=== PATIENT | male | born 1960 | race Caucasian/White ===

== ENCOUNTER 2021-03-21 14:01 | Inpatient (IN) | payer MEDICARE ==
[~2021-03-21] VITALS: Ht 185.4 cm; Wt 178.7 kg
[2021-03-21 15:06] VITALS: BP 117/69
[2021-03-21] MEDS ORDERED: DEXTROSE 50% 25 GM / 50ML DISP.SYRIN. IV PRN (15:45)
[2021-03-21] MEDS ORDERED: IPRATRPIUM/ALBUTEROL 0.5/2.5MG 3 ML NEBU. NEB SCH (16:00)
[2021-03-21] MEDS ORDERED: guaiFENesin/CODEINE 100mg/10mg 5 ML LIQUID PO PRN (16:30)
--- NOTE | 2021-03-21 16:53 | HP ---
DATE OF SERVICE: 03/21/2021 ADMIT DATE: 03/21/2021 CHIEF COMPLAINT: Respiratory failure, COVID-19. HISTORY OF PRESENT ILLNESS: The patient is a pleasant 60-year-old male who presented to [facility] with respiratory failure. He was placed on COVID-19 protocol. Their doctor called me, I have accepted the patient as a transfer. We are starting him on remdesivir. He is already on broad-spectrum antibiotics. I am also going to consult Pulmonary Medicine and put him on the rest of the COVID protocol. PAST MEDICAL HISTORY: Overweight, hypertension, hyperlipidemia, edema, diabetes. ALLERGIES: None. FAMILY HISTORY: Diabetes. SOCIAL HISTORY: He is on disability. He used to work at [employer]. MEDICATIONS: Reviewed. Please refer to the MRAD. REVIEW OF SYSTEMS: GENERAL: No history of weight change, weakness or fevers. SKIN: No bruising, hair changes or rashes. EYES: No blurred, double or loss of vision. NOSE AND THROAT: No history of nosebleeds, hoarseness or sore throat. HEART: No history of palpitations, chest pain or shortness of breath on exertion. PULMONARY: He complains of shortness of breath. GASTROINTESTINAL: Denies changes in appetite, nausea, vomiting, diarrhea or constipation. GENITOURINARY: No history of frequency, urgency, hesitancy or nocturia. NEUROLOGIC: Denies history of numbness, tingling, tremor or weakness. PSYCHIATRIC: No history of panic, anxiety or depression. ENDOCRINE: No history of heat or cold intolerance, polyuria or polydipsia. EXTREMITIES: Denies muscle weakness, joint pain, pain on walking or stiffness. PHYSICAL EXAMINATION: VITALS: Within normal limits and are stable. GENERAL: He is overweight. HEENT: Normal cephalic atraumatic, external auditory canals are patent EYES: Extraocular muscles are intact, pupils are equally round and reactive to light and accommodation MUSCULOSKELETAL: Well developed, well nourished, good range of motion ENDOCRINE: No thyromegaly was palpated LYMPHATICS: No cervical chain or axillary nodes were noted HEMATOPOIETIC: No bruising NECK: Supple, no JVD, no thyromegaly was noted. PULMONARY: He has bibasilar crackles. HEART: RRR, S1, S2 present. Peripheral pulses intact, no obvious murmurs were noted. ABDOMEN: Soft, nontender. Positive bowel sounds no organomegaly, normal bowel sounds. EXTREMITIES: Without any cyanosis, clubbing, or edema. Pedal pulses intact, Homans sign is negative. NEUROLOGIC: Normal speech, normal tone. A and O x 3, moves all extremities, no obvious focal deficits. PSYCHIATRIC: He is a little anxious. SKIN: No ulcerations or rashes, good skin turgor, no jaundice. VASCULAR: Good capillary refill, neurovascular bundle appears to be intact. LABORATORY DATA: Pending. He does have a COVID test that is back, that is positive. IMAGING STUDIES: Pending. ASSESSMENT AND PLAN: COVID-19, respiratory failure. The patient has been admitted. I have consulted Dr. Fenton. I called the pharmacy. We started remdesivir. We will continue the Rocephin and azithromycin he was on. We will continue his steroids. I added in vitamins and minerals, oxygen, codeine cough syrup and aspirin and Lovenox. Trend his labs. Home meds. Deep venous thrombosis prophylaxis. Full code. Prognosis is guarded. ANDRES LINDSEY: Osvaldo TID: [id number]
[2021-03-21] MEDS ORDERED: REMDESIVIR LOAD in IV NORMAL SALINE 250ML TV IV ONE (17:00)
[2021-03-21] MEDS ORDERED: AZITHROMYCIN 500 MG in IV NORMAL SALINE 250ML 250 ML IV SCH (17:00)
[2021-03-21] MEDS ORDERED: AZITHROMYCIN 250 MG in IV NORMAL SALINE 250ML 250 ML IV SCH (17:00)
[2021-03-21] MEDS: cefTRIAXone IV Push 1 GM VIAL. IVP SCH (17:27)
[2021-03-21] MEDS: metFORMIN 500 MG TABLET PO SCH (17:46)
[2021-03-21] MEDS: ENOXAPARIN 40 MG/0.4 ML SYRINGE. SQ SCH (17:46)
[2021-03-21] MEDS: INSULIN LISPRO 300 UNITS/3 ML VIAL. SQ SCH (17:47)
[2021-03-21 19:54] VITALS: BP 135/81
[2021-03-21] MEDS: LACTOBACILLUS RHAMNOSUS GG 1 CAPSULE. PO SCH (21:02)
[2021-03-21] MEDS: ATORVASTATIN CALCIUM 20 MG TABLET PO SCH (21:02)
[2021-03-21] MEDS: IPRATROPIUM/ALBUTEROL 20/100mcg/INH INHALER. INH SCH (21:02)
[2021-03-21] MEDS: methylPREDNISolone SOD SUCC PF 125 MG/2 ML VIAL. IV SCH (21:04)
[2021-03-21 23:06] VITALS: BP 123/70
--- NOTE | 2021-03-22 02:35 | NUR ---
Pt's sats in low- to mid-80's on 15L NC; pt sitting in bed in no apparent distress. Placed 15L NRB in addition to 15L NC, sats up to 88%. Spoke with RT Dorcas - no new recommendations at this time. Will continue to monitor.
[2021-03-22 03:01] VITALS: BP 142/68
[2021-03-22 04:53] LABS: BASO # 0.1 x10^3/uL (0.0-0.2); BASO % 1 % (0-3); EOS % 0 % (0-3); HEMATOCRIT 37.2 % (39.0-53.0); HEMOGLOBIN 12.1 g/dL (13.0-17.5); LYMPH # 0.3 x10^3/uL (1.0-4.8); LYMPH % 2 % (24-48); MEAN CORPUSCULAR HEMOGLOBIN 31 pg (25-35); MEAN CORPUSCULAR HGB CONC 32 g/dL (31-37); MEAN CORPUSCULAR VOLUME 96 fL (79-100); MONO # 0.2 x10^3/uL (0.0-1.1); MONO % 2 % (0-9); NEUT # 10.5 x10^3/uL (1.8-7.7); NEUT % 95 % (31-73); RED BLOOD COUNT 3.87 x10^6/uL (4.30-5.70); RED CELL DISTRIBUTION WIDTH 14.7 % (11.5-14.5); WHITE BLOOD COUNT 11.1 x10^3/uL (4.0-11.0)
[2021-03-22 04:56] LABS: CALCIUM 8.6 mg/dL (8.5-10.1); CREATININE 1.2 mg/dL (0.7-1.3); GFR 61.3; POTASSIUM 4.7 mmol/L (3.5-5.1)
[2021-03-22] MEDS: methylPREDNISolone SOD SUCC PF 125 MG/2 ML VIAL. IV SCH ×3 (05:44→22:23)
[2021-03-22 06:28] LABS: % LYMPHS 2 % (24-48); % MONOS 3 % (0-10); % SEGS 95 % (35-66)
[2021-03-22 06:38] LABS: PLATELET CLUMP PRESENT
[2021-03-22 07:00] VITALS: BP 135/81
[2021-03-22] MEDS ORDERED: AZITHRMYCN 500MG IVPB FOR OMNI 250 ML IV SCH (09:00)
[2021-03-22] MEDS: IPRATROPIUM/ALBUTEROL 20/100mcg/INH INHALER. INH SCH ×4 (09:02→20:32)
[2021-03-22] MEDS: ASPIRIN CHEWABLE 81 MG TABLET. PO SCH (09:02)
--- NOTE | 2021-03-22 09:03 | CONS ---
DATE OF CONSULTATION: 03/22/2021 PULMONARY CONSULTATION ATTENDING PHYSICIAN: Dr. Patel. REASON FOR CONSULTATION: COVID-19 pneumonia, severe hypoxia. HISTORY OF PRESENT ILLNESS: The patient is a 60-year-old morbidly obese male with a BMI of 52. The patient has 30 years of tobacco use before quitting. He presented to the hospital with complaint of shortness of breath. He was recently diagnosed with COVID-19. The patient normally uses oxygen 3 liters at home. Now requiring 100% FiO2 via nonrebreather mask and plus 15 liters of supplemental oxygen via nasal cannula. He denies any chest pain. He does have some cough. No nausea, vomiting, no diarrhea, no dysuria. He is morbidly obese. He has lower extremity lymphedema. His chest x-ray was reviewed from [facility]. It shows extensive bilateral infiltrates. PAST MEDICAL HISTORY: History of morbid obesity with a BMI of 52. Hypertension, hyperlipidemia, lymphedema of lower extremity and diabetes. PAST SURGICAL HISTORY: No recent surgery. ALLERGIES: None. FAMILY HISTORY: Diabetes. SOCIAL HISTORY: He is on disability. He used to work at [employer]. Smoked for 30 years before quitting. MEDICATIONS: Reviewed as listed in the MRAD including initiation of remdesivir and IV Solu-Medrol. REVIEW OF SYSTEMS: A 12-point review of system obtained. Pertinent positives discussed in my present illness, otherwise noncontributory. All systems that were negative were reviewed as well. PHYSICAL EXAMINATION: His vital signs were reviewed. Pulse ox is 91% on 100% FiO2 and 15 liters nasal cannula, afebrile. Visual exam done due to COVID-19. He is sitting in a recline position. No obvious respiratory distress. He is markedly obese. BMI 52. He has lower extremity lymphedema. LABORATORY DATA: Reviewed. White cell count 11.1, hemoglobin 12.1 and platelets are 89. COVID is positive. BUN 38, creatinine 1.2. C-reactive protein is 41.8. IMPRESSION: 1. Acute hypoxic respiratory failure secondary to COVID-19 viral pneumonia leading to acute respiratory distress syndrome. 2. Abnormal chest x-ray with extensive bilateral infiltrates consistent with viral pneumonia. 3. Thrombocytopenia, likely caused by viral pneumonia. 4. C-reactive protein 41. Does not meet the criteria for Actemra. 5. Morbid obesity and underlying suspected chronic obstructive pulmonary disease highly contributing to the severity of hypoxia. 6. Lymphedema, component of cor -pulmonale . RECOMMENDATIONS: 1. We will initiate Vapotherm at 100% FiO2 and 40 liters flow. 2. I have discussed advanced directives with the patient due to the severity of hypoxia. He wants to be aggressive and wants full code. 3. Continue to finish remdesivir. 4. IV steroids. 5. Lovenox for DVT prophylaxis. 6. Nebulizer treatment. 7. Empiric antibiotics. 8. The patient does not meet the criteria for Actemra. CRP is low. 9. Continue diuresis. 10. Discussed with RN. Case discussed with the patient. We will follow along with you. 11. Diuresis. Total critical care time 35 minutes. We may have to transfer him to ICU if hypoxia worsens. KULDIP DR: Ren TID: [id number] [place]
[2021-03-22] MEDS: metFORMIN 500 MG TABLET PO SCH ×2 (09:04→18:28)
[2021-03-22] MEDS: LACTOBACILLUS RHAMNOSUS GG 1 CAPSULE. PO SCH ×2 (09:04→20:31)
[2021-03-22] MEDS: MULTIVITAMIN with MINERAL TABLET. PO SCH (09:05)
[2021-03-22] MEDS: FUROSEMIDE 40 MG TABLET. PO SCH (09:05)
[2021-03-22] MEDS: INSULIN LISPRO 300 UNITS/3 ML VIAL. SQ SCH ×4 (09:13→18:31)
[2021-03-22] MEDS ORDERED: STERILE WATER for RESP 2,000 ML BAG. INH PRN (09:30)
[2021-03-22 10:09] LABS: PLATELET COUNT 89 x10^3/uL (140-400)
[2021-03-22 10:13] LABS: PLT ESTIMATE DECREASED (ADEQUATE)
[2021-03-22 12:00] VITALS: BP 127/66
[2021-03-22 15:00] VITALS: BP 127/81
[2021-03-22] MEDS: cefTRIAXone IV Push 1 GM VIAL. IVP SCH (18:27)
[2021-03-22] MEDS: REMDESIVIR 100mg in NORMAL SALINE 250ML X 4 DAYS IV SCH (18:27)
[2021-03-22] MEDS: ENOXAPARIN 40 MG/0.4 ML SYRINGE. SQ SCH (18:29)
--- NOTE | 2021-03-22 18:58 | PDOC ---
[employer] PROGRESS NOTE Date of Service DOS: DATE: 03/22/21 TIME: 18:54 Chief Complaint Chief Complaint Shortness of breath History of Present Illness History of Present Illness The patient is a pleasant 60-year-old male who presented to [facility] with respiratory failure. He was placed on COVID-19 protocol. Their doctor called me, I have accepted the patient as a transfer. We are starting him on remdesivir. He is already on broad-spectrum antibiotics. I am also going to consult Pulmonary Medicine and put him on the rest of the COVID protocol. 03/22 Patient evaluated examined at bedside. Continue current Covid treatment. Pulmonary following. Antibiotics remdesivir fever oxygen as needed. Continue current plan. Plan of care discussed with bedside RN. Vitals/I&O Vitals/I&O: Vital Signs Date Time Temp Pulse Resp B/P (MAP) Pulse Ox O2 Delivery O2 Flow Rate FiO2 03/22/21 16:13 88 Vapotherm 40.0 03/22/21 15:00 97.3 104 16 127/81 (96) 97.3 I & O 03/21/21 03/21/21 03/22/21 15:00 23:00 07:00 Intake Total 1660 ml 300 ml Output Total 1100 ml 475 ml Balance 560 ml -175 ml Physical Exam General: Alert, Oriented X3, Cooperative Heart: Regular rate, Normal S1, Normal S2 Lungs: Other (Coarse breath sounds throughout decreased air entry) Abdomen: Normal bowel sounds, Soft, No tenderness Extremities: No edema, Normal pulses Skin: No significant lesion Labs Labs: Laboratory Tests Test 03/21/21 20:40 03/22/21 04:00 03/22/21 07:25 03/22/21 11:25 Glucose (Fingerstick) 219 mg/dL (70-99) 249 mg/dL (70-99) 294 mg/dL (70-99) White Blood Count 11.1 x10^3/uL (4.0-11.0) Red Blood Count 3.87 x10^6/uL (4.30-5.70) Hemoglobin 12.1 g/dL (13.0-17.5) Hematocrit 37.2 % (39.0-53.0) Mean Corpuscular Volume 96 fL (79-100) Mean Corpuscular Hemoglobin 31 pg (25-35) Mean Corpuscular Hemoglobin Concent 32 g/dL (31-37) Red Cell Distribution Width 14.7 % (11.5-14.5) Platelet Count 89 x10^3/uL (140-400) Neutrophils (%) (Auto) 95 % (31-73) Lymphocytes (%) (Auto) 2 % (24-48) Monocytes (%) (Auto) 2 % (0-9) Eosinophils (%) (Auto) 0 % (0-3) Basophils (%) (Auto) 1 % (0-3) Neutrophils # (Auto) 10.5 x10^3/uL (1.8-7.7) Lymphocytes # (Auto) 0.3 x10^3/uL (1.0-4.8) Monocytes # (Auto) 0.2 x10^3/uL (0.0-1.1) Eosinophils # (Auto) 0.0 x10^3/uL (0.0-0.7) Basophils # (Auto) 0.1 x10^3/uL (0.0-0.2) Segmented Neutrophils % 95 % (35-66) Lymphocytes % 2 % (24-48) Monocytes % 3 % (0-10) Platelet Estimate Decreased (ADEQUATE) Platelet Clumps, EDTA Present Sodium Level 134 mmol/L (136-145) Potassium Level 4.7 mmol/L (3.5-5.1) Chloride Level 99 mmol/L (98-107) Carbon Dioxide Level 23 mmol/L (21-32) Anion Gap 12 (6-14) Blood Urea Nitrogen 38 mg/dL (8-26) Creatinine 1.2 mg/dL (0.7-1.3) Estimated GFR (Cockcroft-Gault) 61.3 Glucose Level 245 mg/dL (70-99) Calcium Level 8.6 mg/dL (8.5-10.1) C-Reactive Protein, Quantitative 41.8 mg/L (0-3.3) Test 03/22/21 17:17 Glucose (Fingerstick) 237 mg/dL (70-99) Assessment and Plan Assessmemt and Plan Acute hypoxic respiratory failure secondary to COVID-19 pneumonia COVID-19, respiratory failure. The patient has been admitted. I have consulted Dr. Fenton. I called the pharmacy. We started remdesivir. We will continue the Rocephin and azithromycin he was on. We will continue his steroids. I added in vitamins and minerals, oxygen, codeine cough syrup and aspirin and Lovenox. Trend his labs. Home meds. Deep venous thrombosis prophylaxis. Full code. Prognosis is guarded. Comment Review of Relevant I have reviewed the following items traci (where applicable) has been applied. Medications: Current Medications Medications (Trade) Dose Ordered Sig/Holly Route PRN Reason Start Time Stop Time Status Last Admin Dose Admin Remdesivir 100 mg/ Sodium Chloride 230 ml @ 460 mls/hr Q24H IV 03/22/21 17:00 03/25/21 17:29 03/22/21 18:27 Atorvastatin Calcium (Lipitor) 20 mg HS PO 03/21/21 21:00 03/21/21 21:02 Furosemide (Lasix) 40 mg DAILY PO 03/22/21 09:00 03/22/21 09:05 Lactobacillus Rhamnosus (Culturelle) 1 cap BID PO 03/21/21 21:00 03/22/21 09:04 Diltiazem HCl (Cardizem 24hr Cd) 300 mg DAILY PO 03/22/21 09:00 03/22/21 09:04 Methylprednisolone Sodium Succinate (SOLU-Medrol 125MG VIAL) 60 mg Q8HRS IV 03/21/21 22:00 03/22/21 13:18 Multivitamins (Thera M Plus) 1 tab DAILY PO 03/22/21 09:00 03/22/21 09:05 Aspirin (Aspirin Chewable) 81 mg DAILYWBKFT PO 03/22/21 08:00 03/22/21 09:02 Albuterol/ Ipratropium (Combivent Respimat 20-100 Mcg) 1 puff RTQID INH 03/21/21 20:00 03/22/21 16:29 Insulin Human Lispro (HumaLOG) 7 units TIDAC SQ 03/22/21 16:30 03/22/21 18:29 Justifications for Admission Other Justification LARY GILLIS MD Mar 22, 2021 18:58
[2021-03-22 19:59] VITALS: BP 108/58
[2021-03-22] MEDS: AZITHROMYCIN 500 MG in IV NORMAL SALINE 250ML 250 ML IV SCH (20:31)
[2021-03-22] MEDS: ATORVASTATIN CALCIUM 20 MG TABLET PO SCH (20:31)
[2021-03-22] MEDS: INSULIN GLARGINE SYRINGE. SQ SCH (22:22)
[2021-03-22 23:08] VITALS: BP 125/74
[2021-03-23 02:08] VITALS: BP 131/79
[2021-03-23] MEDS: methylPREDNISolone SOD SUCC PF 125 MG/2 ML VIAL. IV SCH ×3 (05:44→19:58)
[2021-03-23 07:00] VITALS: BP 145/67
[2021-03-23 08:17] LABS: BASO % 0 % (0-3); EOS % 0 % (0-3); HEMATOCRIT 39.5 % (39.0-53.0); HEMOGLOBIN 12.6 g/dL (13.0-17.5); LYMPH # 0.3 x10^3/uL (1.0-4.8); LYMPH % 3 % (24-48); MEAN CORPUSCULAR HEMOGLOBIN 31 pg (25-35); MEAN CORPUSCULAR HGB CONC 32 g/dL (31-37); MEAN CORPUSCULAR VOLUME 96 fL (79-100); MONO # 0.2 x10^3/uL (0.0-1.1); MONO % 3 % (0-9); NEUT # 8.2 x10^3/uL (1.8-7.7); NEUT % 94 % (31-73); PLATELET COUNT 98 x10^3/uL (140-400); RED CELL DISTRIBUTION WIDTH 15.1 % (11.5-14.5); WHITE BLOOD COUNT 8.8 x10^3/uL (4.0-11.0)
[2021-03-23 08:24] LABS: CALCIUM 9.2 mg/dL (8.5-10.1); CREATININE 1.1 mg/dL (0.7-1.3); GFR 67.8; POTASSIUM 5.1 mmol/L (3.5-5.1)
[2021-03-23] MEDS: IPRATROPIUM/ALBUTEROL 20/100mcg/INH INHALER. INH SCH ×4 (09:06→20:22)
[2021-03-23] MEDS: metFORMIN 500 MG TABLET PO SCH ×2 (09:06→17:00)
[2021-03-23] MEDS: LACTOBACILLUS RHAMNOSUS GG 1 CAPSULE. PO SCH ×2 (09:06→19:58)
[2021-03-23] MEDS: MULTIVITAMIN with MINERAL TABLET. PO SCH (09:06)
[2021-03-23] MEDS: ASPIRIN CHEWABLE 81 MG TABLET. PO SCH (09:06)
[2021-03-23] MEDS: FUROSEMIDE 40 MG TABLET. PO SCH (09:07)
[2021-03-23] MEDS: INSULIN LISPRO 300 UNITS/3 ML VIAL. SQ SCH ×6 (09:08→17:00)
--- NOTE | 2021-03-23 10:34 | PDOC ---
PULMONARY PROGRESS NOTES DATE: 03/23/21 TIME: 10:32 Subjective Patient remains on 100% FiO2 via Vapotherm. He is comfortable. Vitals Vital Signs Date Time Temp Pulse Resp B/P (MAP) Pulse Ox O2 Delivery O2 Flow Rate FiO2 03/23/21 09:53 90 Vapotherm 40.0 03/23/21 09:07 86 145/67 03/23/21 07:30 22 03/23/21 07:00 96.7 96.7 Comments Visual exam done due to COVID-19 viral pneumonia. No use of accessory muscles. No paradoxical breathing. Lower extremities with lymphedema. Lungs: Other (Coarse breath sounds throughout decreased air entry) Labs Laboratory Tests Test 03/21/21 11:25 03/21/21 17:27 03/21/21 20:40 03/22/21 04:00 SARS-CoV-2 Antigen (Rapid) Positive (NEGATIVE) Glucose (Fingerstick) 223 mg/dL (70-99) 219 mg/dL (70-99) White Blood Count 11.1 x10^3/uL (4.0-11.0) Red Blood Count 3.87 x10^6/uL (4.30-5.70) Hemoglobin 12.1 g/dL (13.0-17.5) Hematocrit 37.2 % (39.0-53.0) Mean Corpuscular Volume 96 fL (79-100) Mean Corpuscular Hemoglobin 31 pg (25-35) Mean Corpuscular Hemoglobin Concent 32 g/dL (31-37) Red Cell Distribution Width 14.7 % (11.5-14.5) Platelet Count 89 x10^3/uL (140-400) Neutrophils (%) (Auto) 95 % (31-73) Lymphocytes (%) (Auto) 2 % (24-48) Monocytes (%) (Auto) 2 % (0-9) Eosinophils (%) (Auto) 0 % (0-3) Basophils (%) (Auto) 1 % (0-3) Neutrophils # (Auto) 10.5 x10^3/uL (1.8-7.7) Lymphocytes # (Auto) 0.3 x10^3/uL (1.0-4.8) Monocytes # (Auto) 0.2 x10^3/uL (0.0-1.1) Eosinophils # (Auto) 0.0 x10^3/uL (0.0-0.7) Basophils # (Auto) 0.1 x10^3/uL (0.0-0.2) Segmented Neutrophils % 95 % (35-66) Lymphocytes % 2 % (24-48) Monocytes % 3 % (0-10) Platelet Estimate Decreased (ADEQUATE) Platelet Clumps, EDTA Present Sodium Level 134 mmol/L (136-145) Potassium Level 4.7 mmol/L (3.5-5.1) Chloride Level 99 mmol/L (98-107) Carbon Dioxide Level 23 mmol/L (21-32) Anion Gap 12 (6-14) Blood Urea Nitrogen 38 mg/dL (8-26) Creatinine 1.2 mg/dL (0.7-1.3) Estimated GFR (Cockcroft-Gault) 61.3 Glucose Level 245 mg/dL (70-99) Calcium Level 8.6 mg/dL (8.5-10.1) C-Reactive Protein, Quantitative 41.8 mg/L (0-3.3) Test 03/22/21 07:25 03/22/21 11:25 03/22/21 17:17 03/22/21 20:16 Glucose (Fingerstick) 249 mg/dL (70-99) 294 mg/dL (70-99) 237 mg/dL (70-99) 221 mg/dL (70-99) Test 03/23/21 07:40 03/23/21 08:00 White Blood Count 8.8 x10^3/uL (4.0-11.0) Red Blood Count 4.10 x10^6/uL (4.30-5.70) Hemoglobin 12.6 g/dL (13.0-17.5) Hematocrit 39.5 % (39.0-53.0) Mean Corpuscular Volume 96 fL (79-100) Mean Corpuscular Hemoglobin 31 pg (25-35) Mean Corpuscular Hemoglobin Concent 32 g/dL (31-37) Red Cell Distribution Width 15.1 % (11.5-14.5) Platelet Count 98 x10^3/uL (140-400) Neutrophils (%) (Auto) 94 % (31-73) Lymphocytes (%) (Auto) 3 % (24-48) Monocytes (%) (Auto) 3 % (0-9) Eosinophils (%) (Auto) 0 % (0-3) Basophils (%) (Auto) 0 % (0-3) Neutrophils # (Auto) 8.2 x10^3/uL (1.8-7.7) Lymphocytes # (Auto) 0.3 x10^3/uL (1.0-4.8) Monocytes # (Auto) 0.2 x10^3/uL (0.0-1.1) Eosinophils # (Auto) 0.0 x10^3/uL (0.0-0.7) Basophils # (Auto) 0.0 x10^3/uL (0.0-0.2) Sodium Level 132 mmol/L (136-145) Potassium Level 5.1 mmol/L (3.5-5.1) Chloride Level 99 mmol/L (98-107) Carbon Dioxide Level 25 mmol/L (21-32) Anion Gap 8 (6-14) Blood Urea Nitrogen 42 mg/dL (8-26) Creatinine 1.1 mg/dL (0.7-1.3) Estimated GFR (Cockcroft-Gault) 67.8 Glucose Level 217 mg/dL (70-99) Calcium Level 9.2 mg/dL (8.5-10.1) Glucose (Fingerstick) 203 mg/dL (70-99) Laboratory Tests Test 03/22/21 11:25 03/22/21 17:17 03/22/21 20:16 03/23/21 07:40 Glucose (Fingerstick) 294 mg/dL (70-99) 237 mg/dL (70-99) 221 mg/dL (70-99) White Blood Count 8.8 x10^3/uL (4.0-11.0) Red Blood Count 4.10 x10^6/uL (4.30-5.70) Hemoglobin 12.6 g/dL (13.0-17.5) Hematocrit 39.5 % (39.0-53.0) Mean Corpuscular Volume 96 fL (79-100) Mean Corpuscular Hemoglobin 31 pg (25-35) Mean Corpuscular Hemoglobin Concent 32 g/dL (31-37) Red Cell Distribution Width 15.1 % (11.5-14.5) Platelet Count 98 x10^3/uL (140-400) Neutrophils (%) (Auto) 94 % (31-73) Lymphocytes (%) (Auto) 3 % (24-48) Monocytes (%) (Auto) 3 % (0-9) Eosinophils (%) (Auto) 0 % (0-3) Basophils (%) (Auto) 0 % (0-3) Neutrophils # (Auto) 8.2 x10^3/uL (1.8-7.7) Lymphocytes # (Auto) 0.3 x10^3/uL (1.0-4.8) Monocytes # (Auto) 0.2 x10^3/uL (0.0-1.1) Eosinophils # (Auto) 0.0 x10^3/uL (0.0-0.7) Basophils # (Auto) 0.0 x10^3/uL (0.0-0.2) Sodium Level 132 mmol/L (136-145) Potassium Level 5.1 mmol/L (3.5-5.1) Chloride Level 99 mmol/L (98-107) Carbon Dioxide Level 25 mmol/L (21-32) Anion Gap 8 (6-14) Blood Urea Nitrogen 42 mg/dL (8-26) Creatinine 1.1 mg/dL (0.7-1.3) Estimated GFR (Cockcroft-Gault) 67.8 Glucose Level 217 mg/dL (70-99) Calcium Level 9.2 mg/dL (8.5-10.1) Test 03/23/21 08:00 Glucose (Fingerstick) 203 mg/dL (70-99) Impression . 1. Acute hypoxic respiratory failure secondary to COVID-19 viral pneumonia leading to acute respiratory distress syndrome. 2. Abnormal chest x-ray with extensive bilateral infiltrates consistent with viral pneumonia. 3. Thrombocytopenia, likely caused by viral pneumonia. 4. C-reactive protein 41. Does not meet the criteria for Actemra. 5. Morbid obesity and underlying suspected chronic obstructive pulmonary disease highly contributing to the severity of hypoxia. 6. Lymphedema, component of cor -pulmonale . Plan . 1. Vapotherm at 100% FiO2 and 40 liters flow. 2. I have discussed advanced directives with the patient due to the severity of hypoxia. He wants to be aggressive and wants full code. 3. Continue to finish remdesivir. 4. IV steroids. 5. Lovenox for DVT prophylaxis. 6. Nebulizer treatment. 7. Empiric antibiotics. 8. The patient does not meet the criteria for Actemra. CRP is low. 9. Continue diuresis. 10. Discussed with RN. Case discussed with the patient. We will follow along with you. AMINATA BARRERA MD Mar 23, 2021 10:34
[2021-03-23 11:00] VITALS: BP 133/73
[2021-03-23 15:00] VITALS: BP 119/81
[2021-03-23] MEDS: ENOXAPARIN 40 MG/0.4 ML SYRINGE. SQ SCH (17:00)
[2021-03-23] MEDS: cefTRIAXone IV Push 1 GM VIAL. IVP SCH (17:00)
[2021-03-23] MEDS: REMDESIVIR 100mg in NORMAL SALINE 250ML X 4 DAYS IV SCH (17:00)
[2021-03-23 19:28] VITALS: BP 134/77
[2021-03-23] MEDS: ATORVASTATIN CALCIUM 20 MG TABLET PO SCH (19:58)
[2021-03-23] MEDS: AZITHROMYCIN 500 MG in IV NORMAL SALINE 250ML 250 ML IV SCH (20:03)
[2021-03-23] MEDS: INSULIN GLARGINE SYRINGE. SQ SCH (20:23)
[2021-03-23 23:09] VITALS: BP 131/77
[2021-03-24 02:43] VITALS: BP 150/72
[2021-03-24 03:19] LABS: BASO % 0 % (0-3); EOS % 0 % (0-3); HEMOGLOBIN 12.9 g/dL (13.0-17.5); LYMPH # 0.3 x10^3/uL (1.0-4.8); LYMPH % 4 % (24-48); MEAN CORPUSCULAR HEMOGLOBIN 31 pg (25-35); MEAN CORPUSCULAR HGB CONC 32 g/dL (31-37); MEAN CORPUSCULAR VOLUME 97 fL (79-100); MONO # 0.2 x10^3/uL (0.0-1.1); MONO % 3 % (0-9); NEUT # 6.7 x10^3/uL (1.8-7.7); NEUT % 93 % (31-73); PLATELET COUNT 132 x10^3/uL (140-400); RED BLOOD COUNT 4.13 x10^6/uL (4.30-5.70); RED CELL DISTRIBUTION WIDTH 14.8 % (11.5-14.5); WHITE BLOOD COUNT 7.2 x10^3/uL (4.0-11.0)
[2021-03-24 04:03] LABS: CREATININE 1.2 mg/dL (0.7-1.3); GFR 61.3; POTASSIUM 5.2 mmol/L (3.5-5.1)
[2021-03-24] MEDS: methylPREDNISolone SOD SUCC PF 125 MG/2 ML VIAL. IV SCH ×3 (05:46→21:21)
[2021-03-24 06:30] VITALS: BP 141/89
[2021-03-24] MEDS: ASPIRIN CHEWABLE 81 MG TABLET. PO SCH (08:40)
[2021-03-24] MEDS: MULTIVITAMIN with MINERAL TABLET. PO SCH (08:41)
[2021-03-24] MEDS: metFORMIN 500 MG TABLET PO SCH ×2 (08:41→16:23)
[2021-03-24] MEDS: LACTOBACILLUS RHAMNOSUS GG 1 CAPSULE. PO SCH ×2 (08:41→21:19)
[2021-03-24] MEDS: FUROSEMIDE 40 MG TABLET. PO SCH (08:41)
[2021-03-24] MEDS: IPRATROPIUM/ALBUTEROL 20/100mcg/INH INHALER. INH SCH ×4 (08:42→21:18)
[2021-03-24] MEDS: INSULIN LISPRO 300 UNITS/3 ML VIAL. SQ SCH ×6 (08:42→16:24)
--- NOTE | 2021-03-24 08:48 | PDOC ---
PULMONARY PROGRESS NOTES DATE: 03/24/21 TIME: 08:47 Subjective Patient remains on 100% FiO2 via Vapotherm. He is comfortable. Vitals Vital Signs Date Time Temp Pulse Resp B/P (MAP) Pulse Ox O2 Delivery O2 Flow Rate FiO2 03/24/21 08:41 82 141/89 03/24/21 08:26 89 Vapotherm 40.0 03/24/21 06:30 97.3 18 97.3 Comments Visual exam done due to COVID-19 viral pneumonia. No use of accessory muscles. No paradoxical breathing. Lower extremities with lymphedema. Labs Laboratory Tests Test 03/22/21 11:25 03/22/21 17:17 03/22/21 20:16 03/23/21 07:40 Glucose (Fingerstick) 294 mg/dL (70-99) 237 mg/dL (70-99) 221 mg/dL (70-99) White Blood Count 8.8 x10^3/uL (4.0-11.0) Red Blood Count 4.10 x10^6/uL (4.30-5.70) Hemoglobin 12.6 g/dL (13.0-17.5) Hematocrit 39.5 % (39.0-53.0) Mean Corpuscular Volume 96 fL (79-100) Mean Corpuscular Hemoglobin 31 pg (25-35) Mean Corpuscular Hemoglobin Concent 32 g/dL (31-37) Red Cell Distribution Width 15.1 % (11.5-14.5) Platelet Count 98 x10^3/uL (140-400) Neutrophils (%) (Auto) 94 % (31-73) Lymphocytes (%) (Auto) 3 % (24-48) Monocytes (%) (Auto) 3 % (0-9) Eosinophils (%) (Auto) 0 % (0-3) Basophils (%) (Auto) 0 % (0-3) Neutrophils # (Auto) 8.2 x10^3/uL (1.8-7.7) Lymphocytes # (Auto) 0.3 x10^3/uL (1.0-4.8) Monocytes # (Auto) 0.2 x10^3/uL (0.0-1.1) Eosinophils # (Auto) 0.0 x10^3/uL (0.0-0.7) Basophils # (Auto) 0.0 x10^3/uL (0.0-0.2) Sodium Level 132 mmol/L (136-145) Potassium Level 5.1 mmol/L (3.5-5.1) Chloride Level 99 mmol/L (98-107) Carbon Dioxide Level 25 mmol/L (21-32) Anion Gap 8 (6-14) Blood Urea Nitrogen 42 mg/dL (8-26) Creatinine 1.1 mg/dL (0.7-1.3) Estimated GFR (Cockcroft-Gault) 67.8 Glucose Level 217 mg/dL (70-99) Calcium Level 9.2 mg/dL (8.5-10.1) Test 03/23/21 08:00 03/23/21 11:30 03/23/21 17:12 03/23/21 20:06 Glucose (Fingerstick) 203 mg/dL (70-99) 277 mg/dL (70-99) 230 mg/dL (70-99) 238 mg/dL (70-99) Test 03/24/21 02:55 03/24/21 08:07 White Blood Count 7.2 x10^3/uL (4.0-11.0) Red Blood Count 4.13 x10^6/uL (4.30-5.70) Hemoglobin 12.9 g/dL (13.0-17.5) Hematocrit 40.0 % (39.0-53.0) Mean Corpuscular Volume 97 fL (79-100) Mean Corpuscular Hemoglobin 31 pg (25-35) Mean Corpuscular Hemoglobin Concent 32 g/dL (31-37) Red Cell Distribution Width 14.8 % (11.5-14.5) Platelet Count 132 x10^3/uL (140-400) Neutrophils (%) (Auto) 93 % (31-73) Lymphocytes (%) (Auto) 4 % (24-48) Monocytes (%) (Auto) 3 % (0-9) Eosinophils (%) (Auto) 0 % (0-3) Basophils (%) (Auto) 0 % (0-3) Neutrophils # (Auto) 6.7 x10^3/uL (1.8-7.7) Lymphocytes # (Auto) 0.3 x10^3/uL (1.0-4.8) Monocytes # (Auto) 0.2 x10^3/uL (0.0-1.1) Eosinophils # (Auto) 0.0 x10^3/uL (0.0-0.7) Basophils # (Auto) 0.0 x10^3/uL (0.0-0.2) Sodium Level 131 mmol/L (136-145) Potassium Level 5.2 mmol/L (3.5-5.1) Chloride Level 98 mmol/L (98-107) Carbon Dioxide Level 21 mmol/L (21-32) Anion Gap 12 (6-14) Blood Urea Nitrogen 44 mg/dL (8-26) Creatinine 1.2 mg/dL (0.7-1.3) Estimated GFR (Cockcroft-Gault) 61.3 Glucose Level 291 mg/dL (70-99) Calcium Level 9.0 mg/dL (8.5-10.1) Glucose (Fingerstick) 237 mg/dL (70-99) Laboratory Tests Test 03/23/21 11:30 03/23/21 17:12 03/23/21 20:06 03/24/21 02:55 Glucose (Fingerstick) 277 mg/dL (70-99) 230 mg/dL (70-99) 238 mg/dL (70-99) White Blood Count 7.2 x10^3/uL (4.0-11.0) Red Blood Count 4.13 x10^6/uL (4.30-5.70) Hemoglobin 12.9 g/dL (13.0-17.5) Hematocrit 40.0 % (39.0-53.0) Mean Corpuscular Volume 97 fL (79-100) Mean Corpuscular Hemoglobin 31 pg (25-35) Mean Corpuscular Hemoglobin Concent 32 g/dL (31-37) Red Cell Distribution Width 14.8 % (11.5-14.5) Platelet Count 132 x10^3/uL (140-400) Neutrophils (%) (Auto) 93 % (31-73) Lymphocytes (%) (Auto) 4 % (24-48) Monocytes (%) (Auto) 3 % (0-9) Eosinophils (%) (Auto) 0 % (0-3) Basophils (%) (Auto) 0 % (0-3) Neutrophils # (Auto) 6.7 x10^3/uL (1.8-7.7) Lymphocytes # (Auto) 0.3 x10^3/uL (1.0-4.8) Monocytes # (Auto) 0.2 x10^3/uL (0.0-1.1) Eosinophils # (Auto) 0.0 x10^3/uL (0.0-0.7) Basophils # (Auto) 0.0 x10^3/uL (0.0-0.2) Sodium Level 131 mmol/L (136-145) Potassium Level 5.2 mmol/L (3.5-5.1) Chloride Level 98 mmol/L (98-107) Carbon Dioxide Level 21 mmol/L (21-32) Anion Gap 12 (6-14) Blood Urea Nitrogen 44 mg/dL (8-26) Creatinine 1.2 mg/dL (0.7-1.3) Estimated GFR (Cockcroft-Gault) 61.3 Glucose Level 291 mg/dL (70-99) Calcium Level 9.0 mg/dL (8.5-10.1) Test 03/24/21 08:07 Glucose (Fingerstick) 237 mg/dL (70-99) Impression . 1. Acute hypoxic respiratory failure secondary to COVID-19 viral pneumonia leading to acute respiratory distress syndrome. 2. Abnormal chest x-ray with extensive bilateral infiltrates consistent with viral pneumonia. 3. Thrombocytopenia, likely caused by viral pneumonia. 4. C-reactive protein 41. Does not meet the criteria for Actemra. 5. Morbid obesity and underlying suspected chronic obstructive pulmonary disease highly contributing to the severity of hypoxia. 6. Lymphedema, component of cor -pulmonale . Plan . 1. Vapotherm at 100% FiO2 and 40 liters flow. 2. I have discussed advanced directives with the patient due to the severity of hypoxia. He wants to be aggressive and wants full code. 3. Continue to finish remdesivir. 4. IV steroids. 5. Lovenox for DVT prophylaxis. 6. Nebulizer treatment. 7. Empiric antibiotics. 8. The patient does not meet the criteria for Actemra. CRP is low. 9. Continue diuresis. 10. Discussed with SOHA. AMINATA BARRERA MD Mar 24, 2021 08:48
--- NOTE | 2021-03-24 09:30 | PDOC ---
[employer] PROGRESS NOTE Date of Service DOS: DATE: 03/24/21 TIME: : Chief Complaint Chief Complaint A/P Acute hypoxic respiratory failure secondary to COVID-19 pneumonia COVID-19, respiratory failure. The patient has been admitted. I have consulted Dr. Fenton. I called the pharmacy. We started remdesivir. We will continue the Rocephin and azithromycin he was on. We will continue his steroids. I added in vitamins and minerals, oxygen, codeine cough syrup and aspirin and Lovenox. Trend his labs. Home meds. Deep venous thrombosis prophylaxis. Full code. Prognosis is guarded. History of Present Illness History of Present Illness The patient is a pleasant 60-year-old male who presented to [facility] with respiratory failure. He was placed on COVID-19 protocol. Their doctor called me, I have accepted the patient as a transfer. We are starting him on remdesivir. He is already on broad-spectrum antibiotics. I am also going to consult Pulmonary Medicine and put him on the rest of the COVID protocol. 03/22 Patient evaluated examined at bedside. Continue current Covid treatment. Pulmonary following. Antibiotics remdesivir fever oxygen as needed. Continue current plan. Plan of care discussed with bedside RN. 03/23 Late entry for March 23. Patient evaluated examined at bedside. Still on Covid treatment. Pulmonary following. Wean O2 as tolerated. Plan of care discussed with bedside RN. Vitals/I&O Vitals/I&O: Vital Signs Date Time Temp Pulse Resp B/P (MAP) Pulse Ox O2 Delivery O2 Flow Rate FiO2 03/24/21 08:41 82 141/89 03/24/21 08:26 89 Vapotherm 40.0 03/24/21 06:30 97.3 18 97.3 I & O 03/23/21 03/23/21 03/24/21 15:00 23:00 07:00 Intake Total 460 ml 640 ml 400 ml Output Total 450 ml 550 ml 750 ml Balance 10 ml 90 ml -350 ml Physical Exam General: Alert, Oriented X3, Cooperative Heart: Regular rate, Normal S1, Normal S2 Abdomen: Normal bowel sounds, Soft, No tenderness Extremities: No edema, Normal pulses Skin: No significant lesion Labs Labs: Laboratory Tests Test 03/23/21 11:30 03/23/21 17:12 03/23/21 20:06 03/24/21 02:55 Glucose (Fingerstick) 277 mg/dL (70-99) 230 mg/dL (70-99) 238 mg/dL (70-99) White Blood Count 7.2 x10^3/uL (4.0-11.0) Red Blood Count 4.13 x10^6/uL (4.30-5.70) Hemoglobin 12.9 g/dL (13.0-17.5) Hematocrit 40.0 % (39.0-53.0) Mean Corpuscular Volume 97 fL (79-100) Mean Corpuscular Hemoglobin 31 pg (25-35) Mean Corpuscular Hemoglobin Concent 32 g/dL (31-37) Red Cell Distribution Width 14.8 % (11.5-14.5) Platelet Count 132 x10^3/uL (140-400) Neutrophils (%) (Auto) 93 % (31-73) Lymphocytes (%) (Auto) 4 % (24-48) Monocytes (%) (Auto) 3 % (0-9) Eosinophils (%) (Auto) 0 % (0-3) Basophils (%) (Auto) 0 % (0-3) Neutrophils # (Auto) 6.7 x10^3/uL (1.8-7.7) Lymphocytes # (Auto) 0.3 x10^3/uL (1.0-4.8) Monocytes # (Auto) 0.2 x10^3/uL (0.0-1.1) Eosinophils # (Auto) 0.0 x10^3/uL (0.0-0.7) Basophils # (Auto) 0.0 x10^3/uL (0.0-0.2) Sodium Level 131 mmol/L (136-145) Potassium Level 5.2 mmol/L (3.5-5.1) Chloride Level 98 mmol/L (98-107) Carbon Dioxide Level 21 mmol/L (21-32) Anion Gap 12 (6-14) Blood Urea Nitrogen 44 mg/dL (8-26) Creatinine 1.2 mg/dL (0.7-1.3) Estimated GFR (Cockcroft-Gault) 61.3 Glucose Level 291 mg/dL (70-99) Calcium Level 9.0 mg/dL (8.5-10.1) Test 03/24/21 08:07 Glucose (Fingerstick) 237 mg/dL (70-99) Comment Review of Relevant I have reviewed the following items traci (where applicable) has been applied. Justifications for Admission Other Justification LARY GILLIS MD Mar 24, 2021 09:30
[2021-03-24 11:04] VITALS: BP 121/70
--- NOTE | 2021-03-24 11:53 | PDOC ---
[employer] PROGRESS NOTE Date of Service DOS: DATE: 03/24/21 TIME: 11:52 Chief Complaint Chief Complaint A/P Acute hypoxic respiratory failure secondary to COVID-19 pneumonia COVID-19, respiratory failure. The patient has been admitted. I have consulted Dr. Fenton. I called the pharmacy. We started remdesivir. We will continue the Rocephin and azithromycin he was on. We will continue his steroids. I added in vitamins and minerals, oxygen, codeine cough syrup and aspirin and Lovenox. Trend his labs. Home meds. Deep venous thrombosis prophylaxis. Full code. Prognosis is guarded. History of Present Illness History of Present Illness The patient is a pleasant 60-year-old male who presented to [facility] with respiratory failure. He was placed on COVID-19 protocol. Their doctor called me, I have accepted the patient as a transfer. We are starting him on remdesivir. He is already on broad-spectrum antibiotics. I am also going to consult Pulmonary Medicine and put him on the rest of the COVID protocol. 03/22 Patient evaluated examined at bedside. Continue current Covid treatment. Pulmonary following. Antibiotics remdesivir fever oxygen as needed. Continue current plan. Plan of care discussed with bedside RN. 03/23 Late entry for March 23. Patient evaluated examined at bedside. Still on Covid treatment. Pulmonary following. Wean O2 as tolerated. Plan of care discussed with bedside RN. 03/24 Patient evaluated and examined at bedside. Still remains on Vapotherm no success with weaning. Appreciate pulmonary discussing advance care planning with patient. Continue current Covid treatment. Not a tocilizumab candidate. Plan of care discussed with bedside RN. Vitals/I&O Vitals/I&O: Vital Signs Date Time Temp Pulse Resp B/P (MAP) Pulse Ox O2 Delivery O2 Flow Rate FiO2 03/24/21 11:33 89 Vapotherm 40.0 03/24/21 11:04 98.6 91 24 121/70 (87) 98.6 I & O 03/23/21 03/23/21 03/24/21 15:00 23:00 07:00 Intake Total 460 ml 640 ml 400 ml Output Total 450 ml 550 ml 750 ml Balance 10 ml 90 ml -350 ml Physical Exam General: Alert, Oriented X3, Cooperative Heart: Regular rate, Normal S1, Normal S2 Abdomen: Normal bowel sounds, Soft, No tenderness Extremities: No edema, Normal pulses Skin: No significant lesion Labs Labs: Laboratory Tests Test 03/23/21 17:12 03/23/21 20:06 03/24/21 02:55 03/24/21 08:07 Glucose (Fingerstick) 230 mg/dL (70-99) 238 mg/dL (70-99) 237 mg/dL (70-99) White Blood Count 7.2 x10^3/uL (4.0-11.0) Red Blood Count 4.13 x10^6/uL (4.30-5.70) Hemoglobin 12.9 g/dL (13.0-17.5) Hematocrit 40.0 % (39.0-53.0) Mean Corpuscular Volume 97 fL (79-100) Mean Corpuscular Hemoglobin 31 pg (25-35) Mean Corpuscular Hemoglobin Concent 32 g/dL (31-37) Red Cell Distribution Width 14.8 % (11.5-14.5) Platelet Count 132 x10^3/uL (140-400) Neutrophils (%) (Auto) 93 % (31-73) Lymphocytes (%) (Auto) 4 % (24-48) Monocytes (%) (Auto) 3 % (0-9) Eosinophils (%) (Auto) 0 % (0-3) Basophils (%) (Auto) 0 % (0-3) Neutrophils # (Auto) 6.7 x10^3/uL (1.8-7.7) Lymphocytes # (Auto) 0.3 x10^3/uL (1.0-4.8) Monocytes # (Auto) 0.2 x10^3/uL (0.0-1.1) Eosinophils # (Auto) 0.0 x10^3/uL (0.0-0.7) Basophils # (Auto) 0.0 x10^3/uL (0.0-0.2) Sodium Level 131 mmol/L (136-145) Potassium Level 5.2 mmol/L (3.5-5.1) Chloride Level 98 mmol/L (98-107) Carbon Dioxide Level 21 mmol/L (21-32) Anion Gap 12 (6-14) Blood Urea Nitrogen 44 mg/dL (8-26) Creatinine 1.2 mg/dL (0.7-1.3) Estimated GFR (Cockcroft-Gault) 61.3 Glucose Level 291 mg/dL (70-99) Calcium Level 9.0 mg/dL (8.5-10.1) Test 03/24/21 11:33 Glucose (Fingerstick) 319 mg/dL (70-99) Comment Review of Relevant I have reviewed the following items traci (where applicable) has been applied. Justifications for Admission Other Justification LARY GILLIS MD Mar 24, 2021 11:53
[2021-03-24 15:10] VITALS: BP 125/72
[2021-03-24] MEDS: cefTRIAXone IV Push 1 GM VIAL. IVP SCH (16:22)
[2021-03-24] MEDS: ENOXAPARIN 40 MG/0.4 ML SYRINGE. SQ SCH (16:22)
[2021-03-24] MEDS: REMDESIVIR 100mg in NORMAL SALINE 250ML X 4 DAYS IV SCH (16:23)
[2021-03-24 19:15] VITALS: BP 116/73
[2021-03-24] MEDS: ATORVASTATIN CALCIUM 20 MG TABLET PO SCH (21:19)
[2021-03-24] MEDS: AZITHROMYCIN 500 MG in IV NORMAL SALINE 250ML 250 ML IV SCH (21:19)
[2021-03-24] MEDS: INSULIN GLARGINE SYRINGE. SQ SCH (21:20)
[2021-03-24 22:38] VITALS: BP 106/63
[2021-03-25 03:08] VITALS: BP 116/61
[2021-03-25] MEDS: methylPREDNISolone SOD SUCC PF 125 MG/2 ML VIAL. IV SCH ×2 (06:03→21:30)
[2021-03-25 06:06] LABS: BASO % 0 % (0-3); EOS % 0 % (0-3); HEMATOCRIT 39.6 % (39.0-53.0); HEMOGLOBIN 12.8 g/dL (13.0-17.5); LYMPH # 0.3 x10^3/uL (1.0-4.8); LYMPH % 4 % (24-48); MEAN CORPUSCULAR HEMOGLOBIN 31 pg (25-35); MEAN CORPUSCULAR HGB CONC 32 g/dL (31-37); MEAN CORPUSCULAR VOLUME 95 fL (79-100); MONO # 0.2 x10^3/uL (0.0-1.1); MONO % 3 % (0-9); NEUT # 6.6 x10^3/uL (1.8-7.7); NEUT % 94 % (31-73); PLATELET COUNT 100 x10^3/uL (140-400); RED BLOOD COUNT 4.17 x10^6/uL (4.30-5.70); RED CELL DISTRIBUTION WIDTH 14.6 % (11.5-14.5); WHITE BLOOD COUNT 7.1 x10^3/uL (4.0-11.0)
[2021-03-25 06:20] LABS: CALCIUM 9.1 mg/dL (8.5-10.1); CREATININE 1.1 mg/dL (0.7-1.3); GFR 67.8
[2021-03-25 06:29] LABS: POTASSIUM 5.7 mmol/L (3.5-5.1)
[2021-03-25 07:00] VITALS: BP 139/102
[2021-03-25] MEDS: IPRATROPIUM/ALBUTEROL 20/100mcg/INH INHALER. INH SCH ×3 (08:00→16:00)
[2021-03-25] MEDS: INSULIN LISPRO 300 UNITS/3 ML VIAL. SQ SCH ×6 (08:43→16:48)
[2021-03-25] MEDS: LACTOBACILLUS RHAMNOSUS GG 1 CAPSULE. PO SCH ×2 (08:44→21:30)
[2021-03-25] MEDS: ASPIRIN CHEWABLE 81 MG TABLET. PO SCH (08:44)
[2021-03-25] MEDS: metFORMIN 500 MG TABLET PO SCH ×2 (08:44→16:51)
[2021-03-25] MEDS: MULTIVITAMIN with MINERAL TABLET. PO SCH (08:44)
[2021-03-25] MEDS: FUROSEMIDE 40 MG TABLET. PO SCH (08:45)
--- NOTE | 2021-03-25 10:09 | PDOC ---
PULMONARY PROGRESS NOTES DATE: 03/25/21 TIME: 10:08 Subjective Patient remains on 100% FiO2 via Vapotherm. He is comfortable. Vitals Vital Signs Date Time Temp Pulse Resp B/P (MAP) Pulse Ox O2 Delivery O2 Flow Rate FiO2 03/25/21 08:45 90 139/102 03/25/21 07:19 98 Vapotherm 40.0 03/25/21 07:00 98.2 22 98.2 Comments Visual exam done due to COVID-19 viral pneumonia. No use of accessory muscles. No paradoxical breathing. Lower extremities with lymphedema. Labs Laboratory Tests Test 03/23/21 11:30 03/23/21 17:12 03/23/21 20:06 03/24/21 02:55 Glucose (Fingerstick) 277 mg/dL (70-99) 230 mg/dL (70-99) 238 mg/dL (70-99) White Blood Count 7.2 x10^3/uL (4.0-11.0) Red Blood Count 4.13 x10^6/uL (4.30-5.70) Hemoglobin 12.9 g/dL (13.0-17.5) Hematocrit 40.0 % (39.0-53.0) Mean Corpuscular Volume 97 fL (79-100) Mean Corpuscular Hemoglobin 31 pg (25-35) Mean Corpuscular Hemoglobin Concent 32 g/dL (31-37) Red Cell Distribution Width 14.8 % (11.5-14.5) Platelet Count 132 x10^3/uL (140-400) Neutrophils (%) (Auto) 93 % (31-73) Lymphocytes (%) (Auto) 4 % (24-48) Monocytes (%) (Auto) 3 % (0-9) Eosinophils (%) (Auto) 0 % (0-3) Basophils (%) (Auto) 0 % (0-3) Neutrophils # (Auto) 6.7 x10^3/uL (1.8-7.7) Lymphocytes # (Auto) 0.3 x10^3/uL (1.0-4.8) Monocytes # (Auto) 0.2 x10^3/uL (0.0-1.1) Eosinophils # (Auto) 0.0 x10^3/uL (0.0-0.7) Basophils # (Auto) 0.0 x10^3/uL (0.0-0.2) Sodium Level 131 mmol/L (136-145) Potassium Level 5.2 mmol/L (3.5-5.1) Chloride Level 98 mmol/L (98-107) Carbon Dioxide Level 21 mmol/L (21-32) Anion Gap 12 (6-14) Blood Urea Nitrogen 44 mg/dL (8-26) Creatinine 1.2 mg/dL (0.7-1.3) Estimated GFR (Cockcroft-Gault) 61.3 Glucose Level 291 mg/dL (70-99) Calcium Level 9.0 mg/dL (8.5-10.1) Test 03/24/21 08:07 03/24/21 11:33 03/24/21 16:04 03/24/21 20:34 Glucose (Fingerstick) 237 mg/dL (70-99) 319 mg/dL (70-99) 247 mg/dL (70-99) 173 mg/dL (70-99) Test 03/25/21 04:40 03/25/21 08:20 White Blood Count 7.1 x10^3/uL (4.0-11.0) Red Blood Count 4.17 x10^6/uL (4.30-5.70) Hemoglobin 12.8 g/dL (13.0-17.5) Hematocrit 39.6 % (39.0-53.0) Mean Corpuscular Volume 95 fL (79-100) Mean Corpuscular Hemoglobin 31 pg (25-35) Mean Corpuscular Hemoglobin Concent 32 g/dL (31-37) Red Cell Distribution Width 14.6 % (11.5-14.5) Platelet Count 100 x10^3/uL (140-400) Neutrophils (%) (Auto) 94 % (31-73) Lymphocytes (%) (Auto) 4 % (24-48) Monocytes (%) (Auto) 3 % (0-9) Eosinophils (%) (Auto) 0 % (0-3) Basophils (%) (Auto) 0 % (0-3) Neutrophils # (Auto) 6.6 x10^3/uL (1.8-7.7) Lymphocytes # (Auto) 0.3 x10^3/uL (1.0-4.8) Monocytes # (Auto) 0.2 x10^3/uL (0.0-1.1) Eosinophils # (Auto) 0.0 x10^3/uL (0.0-0.7) Basophils # (Auto) 0.0 x10^3/uL (0.0-0.2) Sodium Level 133 mmol/L (136-145) Potassium Level 5.7 mmol/L (3.5-5.1) Chloride Level 99 mmol/L (98-107) Carbon Dioxide Level 23 mmol/L (21-32) Anion Gap 11 (6-14) Blood Urea Nitrogen 45 mg/dL (8-26) Creatinine 1.1 mg/dL (0.7-1.3) Estimated GFR (Cockcroft-Gault) 67.8 Glucose Level 233 mg/dL (70-99) Calcium Level 9.1 mg/dL (8.5-10.1) Glucose (Fingerstick) 228 mg/dL (70-99) Laboratory Tests Test 03/24/21 11:33 03/24/21 16:04 03/24/21 20:34 03/25/21 04:40 Glucose (Fingerstick) 319 mg/dL (70-99) 247 mg/dL (70-99) 173 mg/dL (70-99) White Blood Count 7.1 x10^3/uL (4.0-11.0) Red Blood Count 4.17 x10^6/uL (4.30-5.70) Hemoglobin 12.8 g/dL (13.0-17.5) Hematocrit 39.6 % (39.0-53.0) Mean Corpuscular Volume 95 fL (79-100) Mean Corpuscular Hemoglobin 31 pg (25-35) Mean Corpuscular Hemoglobin Concent 32 g/dL (31-37) Red Cell Distribution Width 14.6 % (11.5-14.5) Platelet Count 100 x10^3/uL (140-400) Neutrophils (%) (Auto) 94 % (31-73) Lymphocytes (%) (Auto) 4 % (24-48) Monocytes (%) (Auto) 3 % (0-9) Eosinophils (%) (Auto) 0 % (0-3) Basophils (%) (Auto) 0 % (0-3) Neutrophils # (Auto) 6.6 x10^3/uL (1.8-7.7) Lymphocytes # (Auto) 0.3 x10^3/uL (1.0-4.8) Monocytes # (Auto) 0.2 x10^3/uL (0.0-1.1) Eosinophils # (Auto) 0.0 x10^3/uL (0.0-0.7) Basophils # (Auto) 0.0 x10^3/uL (0.0-0.2) Sodium Level 133 mmol/L (136-145) Potassium Level 5.7 mmol/L (3.5-5.1) Chloride Level 99 mmol/L (98-107) Carbon Dioxide Level 23 mmol/L (21-32) Anion Gap 11 (6-14) Blood Urea Nitrogen 45 mg/dL (8-26) Creatinine 1.1 mg/dL (0.7-1.3) Estimated GFR (Cockcroft-Gault) 67.8 Glucose Level 233 mg/dL (70-99) Calcium Level 9.1 mg/dL (8.5-10.1) Test 03/25/21 08:20 Glucose (Fingerstick) 228 mg/dL (70-99) Impression . 1. Acute hypoxic respiratory failure secondary to COVID-19 viral pneumonia leading to acute respiratory distress syndrome. 2. Abnormal chest x-ray with extensive bilateral infiltrates consistent with viral pneumonia. 3. Thrombocytopenia, likely caused by viral pneumonia. 4. C-reactive protein 41. Does not meet the criteria for Actemra. 5. Morbid obesity and underlying suspected chronic obstructive pulmonary disease highly contributing to the severity of hypoxia. 6. Lymphedema, component of cor -pulmonale . Plan . 1. Vapotherm at 100% FiO2 and 40 liters flow. 2. I have discussed advanced directives with the patient due to the severity of hypoxia. He wants to be aggressive and wants full code. 3. Continue to finish remdesivir. 4. IV steroids with gradual taper. 5. Lovenox for DVT prophylaxis. 6. Nebulizer treatment. 7. Empiric antibiotics. 8. The patient does not meet the criteria for Actemra. CRP is low. 9. Continue diuresis. 10. Discussed with RN. AMINATA BARRERA MD Mar 25, 2021 10:09
[2021-03-25 11:00] VITALS: BP 130/73
--- NOTE | 2021-03-25 11:22 | PDOC ---
[employer] PROGRESS NOTE Date of Service DOS: DATE: 03/25/21 TIME: : Chief Complaint Chief Complaint A/P Acute hypoxic respiratory failure secondary to COVID-19 pneumonia COVID-19, respiratory failure. The patient has been admitted. I have consulted Dr. Fenton. I called the pharmacy. We started remdesivir. We will continue the Rocephin and azithromycin he was on. We will continue his steroids. I added in vitamins and minerals, oxygen, codeine cough syrup and aspirin and Lovenox. Trend his labs. Home meds. Deep venous thrombosis prophylaxis. Full code. Prognosis is guarded. History of Present Illness History of Present Illness The patient is a pleasant 60-year-old male who presented to [facility] with respiratory failure. He was placed on COVID-19 protocol. Their doctor called me, I have accepted the patient as a transfer. We are starting him on remdesivir. He is already on broad-spectrum antibiotics. I am also going to consult Pulmonary Medicine and put him on the rest of the COVID protocol. 03/22 Patient evaluated examined at bedside. Continue current Covid treatment. Pulmonary following. Antibiotics remdesivir fever oxygen as needed. Continue current plan. Plan of care discussed with bedside RN. 03/23 Late entry for March 23. Patient evaluated examined at bedside. Still on Covid treatment. Pulmonary following. Wean O2 as tolerated. Plan of care discussed with bedside RN. 03/24 Patient evaluated and examined at bedside. Still remains on Vapotherm no success with weaning. Appreciate pulmonary discussing advance care planning with patient. Continue current Covid treatment. Not a tocilizumab candidate. Plan of care discussed with bedside RN. 03/25 Patient evaluated and examined at bedside. Remains on Vapotherm unsuccessful to any weaning. Hyperkalemia a bit worse today will treat. Continue COVID treatments. Patient insistent on remaining a full code plan of care discussed with bedside RN. Vitals/I&O Vitals/I&O: Vital Signs Date Time Temp Pulse Resp B/P (MAP) Pulse Ox O2 Delivery O2 Flow Rate FiO2 03/25/21 11:19 98 Vapotherm 40.0 03/25/21 08:45 90 139/102 03/25/21 07:00 98.2 22 98.2 I & O 03/24/21 03/24/21 03/25/21 15:00 23:00 07:00 Intake Total 2530 ml 300 ml Output Total 850 ml 901 ml Balance 1680 ml -601 ml Physical Exam General: Alert, Oriented X3, Cooperative Heart: Regular rate, Normal S1, Normal S2 Lungs: Other (decreased air entry throughout) Abdomen: Normal bowel sounds, Soft, No tenderness Extremities: No edema, Normal pulses Skin: No significant lesion Labs Labs: Laboratory Tests Test 03/24/21 11:33 03/24/21 16:04 03/24/21 20:34 03/25/21 04:40 Glucose (Fingerstick) 319 mg/dL (70-99) 247 mg/dL (70-99) 173 mg/dL (70-99) White Blood Count 7.1 x10^3/uL (4.0-11.0) Red Blood Count 4.17 x10^6/uL (4.30-5.70) Hemoglobin 12.8 g/dL (13.0-17.5) Hematocrit 39.6 % (39.0-53.0) Mean Corpuscular Volume 95 fL (79-100) Mean Corpuscular Hemoglobin 31 pg (25-35) Mean Corpuscular Hemoglobin Concent 32 g/dL (31-37) Red Cell Distribution Width 14.6 % (11.5-14.5) Platelet Count 100 x10^3/uL (140-400) Neutrophils (%) (Auto) 94 % (31-73) Lymphocytes (%) (Auto) 4 % (24-48) Monocytes (%) (Auto) 3 % (0-9) Eosinophils (%) (Auto) 0 % (0-3) Basophils (%) (Auto) 0 % (0-3) Neutrophils # (Auto) 6.6 x10^3/uL (1.8-7.7) Lymphocytes # (Auto) 0.3 x10^3/uL (1.0-4.8) Monocytes # (Auto) 0.2 x10^3/uL (0.0-1.1) Eosinophils # (Auto) 0.0 x10^3/uL (0.0-0.7) Basophils # (Auto) 0.0 x10^3/uL (0.0-0.2) Sodium Level 133 mmol/L (136-145) Potassium Level 5.7 mmol/L (3.5-5.1) Chloride Level 99 mmol/L (98-107) Carbon Dioxide Level 23 mmol/L (21-32) Anion Gap 11 (6-14) Blood Urea Nitrogen 45 mg/dL (8-26) Creatinine 1.1 mg/dL (0.7-1.3) Estimated GFR (Cockcroft-Gault) 67.8 Glucose Level 233 mg/dL (70-99) Calcium Level 9.1 mg/dL (8.5-10.1) Test 03/25/21 08:20 Glucose (Fingerstick) 228 mg/dL (70-99) Comment Review of Relevant I have reviewed the following items traci (where applicable) has been applied. Justifications for Admission Other Justification LARY GILLIS MD Mar 25, 2021 11:22
[2021-03-25] MEDS ORDERED: SODIUM POLYSTYRENE SULFON/SORB 15 GM/60 ML ORAL.SUSP. PO ONE (11:45)
[2021-03-25] MEDS ORDERED: CALCIUM GLUCONATE 1,000 MG/10 ML VIAL. IVP ONE ×2 (11:45)
[2021-03-25] MEDS ORDERED: INSULIN REGULAR 100 UNIT/ML 3ML VIAL. IV ONE (11:45)
[2021-03-25] MEDS ORDERED: DEXTROSE 50% 25 GM / 50ML DISP.SYRIN. IV ONE (11:45)
[2021-03-25] MEDS ORDERED: FUROSEMIDE 40 MG/4 ML VIAL. IVP ONE (12:00)
--- NOTE | 2021-03-25 13:39 | NUR ---
SS following for discharge planning. SS reviewed pt chart and discussed with pt RN. Pt is from home and is currently on Vapotherm at 40 liters and 100%. COVID19 positive. Pt on IV Azithromycin, IV Remdesivir, IV Solu-Medrol, and IV Rocephin. Not stable. SS will continue to follow for discharge planning.
[2021-03-25 15:00] VITALS: BP 123/58
[2021-03-25] MEDS: cefTRIAXone IV Push 1 GM VIAL. IVP SCH (16:49)
[2021-03-25] MEDS: REMDESIVIR 100mg in NORMAL SALINE 250ML X 4 DAYS IV SCH (16:53)
[2021-03-25 19:35] VITALS: BP 122/72
[2021-03-25] MEDS: AZITHROMYCIN 500 MG in IV NORMAL SALINE 250ML 250 ML IV SCH (21:29)
[2021-03-25] MEDS: ATORVASTATIN CALCIUM 20 MG TABLET PO SCH (21:30)
[2021-03-25] MEDS: INSULIN GLARGINE SYRINGE. SQ SCH (21:39)
[2021-03-25] MEDS: STERILE WATER for RESP 1,000 ML BAG. INH PRN (22:00)
[2021-03-25 23:00] VITALS: BP 128/77
[2021-03-26 03:45] VITALS: BP 125/81
[2021-03-26 07:00] VITALS: BP 136/87
[2021-03-26] MEDS: IPRATROPIUM/ALBUTEROL 20/100mcg/INH INHALER. INH SCH ×5 (08:00→21:24)
[2021-03-26 08:10] LABS: BASO % 0 % (0-3); EOS % 0 % (0-3); HEMOGLOBIN 13.3 g/dL (13.0-17.5); LYMPH # 0.2 x10^3/uL (1.0-4.8); LYMPH % 3 % (24-48); MEAN CORPUSCULAR HEMOGLOBIN 31 pg (25-35); MEAN CORPUSCULAR HGB CONC 32 g/dL (31-37); MEAN CORPUSCULAR VOLUME 96 fL (79-100); MONO # 0.3 x10^3/uL (0.0-1.1); MONO % 3 % (0-9); NEUT # 7.5 x10^3/uL (1.8-7.7); NEUT % 94 % (31-73); PLATELET COUNT 143 x10^3/uL (140-400); RED BLOOD COUNT 4.28 x10^6/uL (4.30-5.70); RED CELL DISTRIBUTION WIDTH 14.8 % (11.5-14.5)
[2021-03-26 08:33] LABS: CALCIUM 8.7 mg/dL (8.5-10.1); CREATININE 1.2 mg/dL (0.7-1.3); GFR 61.3; POTASSIUM 5.1 mmol/L (3.5-5.1)
--- NOTE | 2021-03-26 08:37 | PDOC ---
PULMONARY PROGRESS NOTES DATE: 03/26/21 TIME: 08:37 Subjective Patient feels better, no chest pain no pressure Vitals Vital Signs Date Time Temp Pulse Resp B/P (MAP) Pulse Ox O2 Delivery O2 Flow Rate FiO2 03/26/21 04:56 96 Vapotherm 30.0 03/26/21 03:45 97.4 92 24 125/81 (96) 97.4 Comments Visual exam done due to COVID-19 viral pneumonia. No use of accessory muscles. No paradoxical breathing. Lower extremities with lymphedema. Lungs: Other (decreased air entry throughout) Labs Laboratory Tests Test 03/24/21 11:33 03/24/21 16:04 03/24/21 20:34 03/25/21 04:40 Glucose (Fingerstick) 319 mg/dL (70-99) 247 mg/dL (70-99) 173 mg/dL (70-99) White Blood Count 7.1 x10^3/uL (4.0-11.0) Red Blood Count 4.17 x10^6/uL (4.30-5.70) Hemoglobin 12.8 g/dL (13.0-17.5) Hematocrit 39.6 % (39.0-53.0) Mean Corpuscular Volume 95 fL (79-100) Mean Corpuscular Hemoglobin 31 pg (25-35) Mean Corpuscular Hemoglobin Concent 32 g/dL (31-37) Red Cell Distribution Width 14.6 % (11.5-14.5) Platelet Count 100 x10^3/uL (140-400) Neutrophils (%) (Auto) 94 % (31-73) Lymphocytes (%) (Auto) 4 % (24-48) Monocytes (%) (Auto) 3 % (0-9) Eosinophils (%) (Auto) 0 % (0-3) Basophils (%) (Auto) 0 % (0-3) Neutrophils # (Auto) 6.6 x10^3/uL (1.8-7.7) Lymphocytes # (Auto) 0.3 x10^3/uL (1.0-4.8) Monocytes # (Auto) 0.2 x10^3/uL (0.0-1.1) Eosinophils # (Auto) 0.0 x10^3/uL (0.0-0.7) Basophils # (Auto) 0.0 x10^3/uL (0.0-0.2) Sodium Level 133 mmol/L (136-145) Potassium Level 5.7 mmol/L (3.5-5.1) Chloride Level 99 mmol/L (98-107) Carbon Dioxide Level 23 mmol/L (21-32) Anion Gap 11 (6-14) Blood Urea Nitrogen 45 mg/dL (8-26) Creatinine 1.1 mg/dL (0.7-1.3) Estimated GFR (Cockcroft-Gault) 67.8 Glucose Level 233 mg/dL (70-99) Calcium Level 9.1 mg/dL (8.5-10.1) Test 03/25/21 08:20 03/25/21 11:20 03/25/21 16:32 03/25/21 21:04 Glucose (Fingerstick) 228 mg/dL (70-99) 273 mg/dL (70-99) 219 mg/dL (70-99) 190 mg/dL (70-99) Test 03/26/21 07:50 03/26/21 08:23 White Blood Count 8.0 x10^3/uL (4.0-11.0) Red Blood Count 4.28 x10^6/uL (4.30-5.70) Hemoglobin 13.3 g/dL (13.0-17.5) Hematocrit 41.0 % (39.0-53.0) Mean Corpuscular Volume 96 fL (79-100) Mean Corpuscular Hemoglobin 31 pg (25-35) Mean Corpuscular Hemoglobin Concent 32 g/dL (31-37) Red Cell Distribution Width 14.8 % (11.5-14.5) Platelet Count 143 x10^3/uL (140-400) Neutrophils (%) (Auto) 94 % (31-73) Lymphocytes (%) (Auto) 3 % (24-48) Monocytes (%) (Auto) 3 % (0-9) Eosinophils (%) (Auto) 0 % (0-3) Basophils (%) (Auto) 0 % (0-3) Neutrophils # (Auto) 7.5 x10^3/uL (1.8-7.7) Lymphocytes # (Auto) 0.2 x10^3/uL (1.0-4.8) Monocytes # (Auto) 0.3 x10^3/uL (0.0-1.1) Eosinophils # (Auto) 0.0 x10^3/uL (0.0-0.7) Basophils # (Auto) 0.0 x10^3/uL (0.0-0.2) Sodium Level 132 mmol/L (136-145) Potassium Level 5.1 mmol/L (3.5-5.1) Chloride Level 98 mmol/L (98-107) Carbon Dioxide Level 21 mmol/L (21-32) Anion Gap 13 (6-14) Blood Urea Nitrogen 50 mg/dL (8-26) Creatinine 1.2 mg/dL (0.7-1.3) Estimated GFR (Cockcroft-Gault) 61.3 Glucose Level 213 mg/dL (70-99) Calcium Level 8.7 mg/dL (8.5-10.1) Glucose (Fingerstick) 202 mg/dL (70-99) Laboratory Tests Test 03/25/21 11:20 03/25/21 16:32 03/25/21 21:04 03/26/21 07:50 Glucose (Fingerstick) 273 mg/dL (70-99) 219 mg/dL (70-99) 190 mg/dL (70-99) White Blood Count 8.0 x10^3/uL (4.0-11.0) Red Blood Count 4.28 x10^6/uL (4.30-5.70) Hemoglobin 13.3 g/dL (13.0-17.5) Hematocrit 41.0 % (39.0-53.0) Mean Corpuscular Volume 96 fL (79-100) Mean Corpuscular Hemoglobin 31 pg (25-35) Mean Corpuscular Hemoglobin Concent 32 g/dL (31-37) Red Cell Distribution Width 14.8 % (11.5-14.5) Platelet Count 143 x10^3/uL (140-400) Neutrophils (%) (Auto) 94 % (31-73) Lymphocytes (%) (Auto) 3 % (24-48) Monocytes (%) (Auto) 3 % (0-9) Eosinophils (%) (Auto) 0 % (0-3) Basophils (%) (Auto) 0 % (0-3) Neutrophils # (Auto) 7.5 x10^3/uL (1.8-7.7) Lymphocytes # (Auto) 0.2 x10^3/uL (1.0-4.8) Monocytes # (Auto) 0.3 x10^3/uL (0.0-1.1) Eosinophils # (Auto) 0.0 x10^3/uL (0.0-0.7) Basophils # (Auto) 0.0 x10^3/uL (0.0-0.2) Sodium Level 132 mmol/L (136-145) Potassium Level 5.1 mmol/L (3.5-5.1) Chloride Level 98 mmol/L (98-107) Carbon Dioxide Level 21 mmol/L (21-32) Anion Gap 13 (6-14) Blood Urea Nitrogen 50 mg/dL (8-26) Creatinine 1.2 mg/dL (0.7-1.3) Estimated GFR (Cockcroft-Gault) 61.3 Glucose Level 213 mg/dL (70-99) Calcium Level 8.7 mg/dL (8.5-10.1) Test 03/26/21 08:23 Glucose (Fingerstick) 202 mg/dL (70-99) Impression . 1. Acute hypoxic respiratory failure secondary to COVID-19 viral pneumonia leading to acute respiratory distress syndrome. 2. Abnormal chest x-ray with extensive bilateral infiltrates consistent with viral pneumonia. 3. Thrombocytopenia, likely caused by viral pneumonia. 4. C-reactive protein 41. Does not meet the criteria for Actemra. 5. Morbid obesity and underlying suspected chronic obstructive pulmonary disease highly contributing to the severity of hypoxia. 6. Lymphedema, component of cor -pulmonale . Plan . Updated 03/26 Continue current support Remdesivir Steroids DVT prophylaxis 1. Vapotherm at 100% FiO2 and 40 liters flow. 2. I have discussed advanced directives with the patient due to the severity of hypoxia. He wants to be aggressive and wants full code. 3. Continue to finish remdesivir. 4. IV steroids with gradual taper. 5. Lovenox for DVT prophylaxis. 6. Nebulizer treatment. 7. Empiric antibiotics. 8. The patient does not meet the criteria for Actemra. CRP is low. 9. Continue diuresis. 10. Discussed with EVAN SOLITARIO MD Mar 26, 2021 08:37
[2021-03-26] MEDS: methylPREDNISolone SOD SUCC PF 125 MG/2 ML VIAL. IV SCH ×2 (09:56→22:05)
[2021-03-26] MEDS: ASPIRIN CHEWABLE 81 MG TABLET. PO SCH (09:57)
[2021-03-26] MEDS: FUROSEMIDE 40 MG TABLET. PO SCH (09:57)
[2021-03-26] MEDS: MULTIVITAMIN with MINERAL TABLET. PO SCH (09:57)
[2021-03-26] MEDS: LACTOBACILLUS RHAMNOSUS GG 1 CAPSULE. PO SCH ×2 (09:57→22:05)
[2021-03-26] MEDS: INSULIN LISPRO 300 UNITS/3 ML VIAL. SQ SCH ×6 (10:02→18:27)
[2021-03-26 10:29] VITALS: BP 143/87
[2021-03-26] MEDS: STERILE WATER for RESP 1,000 ML BAG. INH PRN (11:28)
--- NOTE | 2021-03-26 11:50 | NUR ---
SS following up with discharge planning. SS reviewed pt chart and discussed with pt RN. Pt is currently on Vapotherm at 30 liters and 90%. COVID19 positive. Pt on IV Rocephin, IV Solu-Medrol, IV Azithromycin, and PO Lasix. Not stable. SS will continue to follow for discharge planning.
[2021-03-26] MEDS: metFORMIN 500 MG TABLET PO SCH ×2 (12:50→18:20)
[2021-03-26 15:00] VITALS: BP 130/73
[2021-03-26] MEDS: cefTRIAXone IV Push 1 GM VIAL. IVP SCH (18:20)
[2021-03-26 20:15] VITALS: BP 143/92
[2021-03-26] MEDS: AZITHROMYCIN 500 MG in IV NORMAL SALINE 250ML 250 ML IV SCH (21:00)
--- NOTE | 2021-03-26 21:19 | PDOC ---
[employer] PROGRESS NOTE Date of Service DOS: DATE: 03/26/21 TIME: 21:18 Chief Complaint Chief Complaint A/P Acute hypoxic respiratory failure secondary to COVID-19 pneumonia COVID-19, respiratory failure. The patient has been admitted. I have consulted Dr. Fenton. I called the pharmacy. We started remdesivir. We will continue the Rocephin and azithromycin he was on. We will continue his steroids. I added in vitamins and minerals, oxygen, codeine cough syrup and aspirin and Lovenox. Trend his labs. Home meds. Deep venous thrombosis prophylaxis. Full code. Prognosis is guarded. History of Present Illness History of Present Illness The patient is a pleasant 60-year-old male who presented to [facility] with respiratory failure. He was placed on COVID-19 protocol. Their doctor called me, I have accepted the patient as a transfer. We are starting him on remdesivir. He is already on broad-spectrum antibiotics. I am also going to consult Pulmonary Medicine and put him on the rest of the COVID protocol. 03/22 Patient evaluated examined at bedside. Continue current Covid treatment. Pulmonary following. Antibiotics remdesivir fever oxygen as needed. Continue current plan. Plan of care discussed with bedside RN. 03/23 Late entry for March 23. Patient evaluated examined at bedside. Still on Covid treatment. Pulmonary following. Wean O2 as tolerated. Plan of care discussed with bedside RN. 03/24 Patient evaluated and examined at bedside. Still remains on Vapotherm no success with weaning. Appreciate pulmonary discussing advance care planning with patient. Continue current Covid treatment. Not a tocilizumab candidate. Plan of care discussed with bedside RN. 03/25 Patient evaluated and examined at bedside. Remains on Vapotherm unsuccessful to any weaning. Hyperkalemia a bit worse today will treat. Continue COVID treatments. Patient insistent on remaining a full code plan of care discussed with bedside RN. 03/26 Patient evaluated examined at bedside. Still on Vapotherm but on 30 L/min 90% FiO2. Wean as tolerated. Potassium okay today. Pulmonary following. Continue current plan otherwise. Vitals/I&O Vitals/I&O: Vital Signs Date Time Temp Pulse Resp B/P (MAP) Pulse Ox O2 Delivery O2 Flow Rate FiO2 03/26/21 20:15 96.3 116 22 143/92 (109) 92 VAPOTHERM 30L @ 90% 96.3 03/26/21 17:28 30.0 I & O 03/25/21 03/25/21 03/26/21 15:00 23:00 07:00 Intake Total 400 ml 320 ml 700 ml Output Total 350 ml 850 ml 850 ml Balance 50 ml -530 ml -150 ml Physical Exam General: Alert, Oriented X3, Cooperative Heart: Regular rate, Normal S1, Normal S2 Lungs: Other (decreased air entry throughout) Abdomen: Normal bowel sounds, Soft, No tenderness Extremities: No edema, Normal pulses Skin: No significant lesion Labs Labs: Laboratory Tests Test 03/26/21 07:50 03/26/21 08:23 03/26/21 11:15 03/26/21 16:25 White Blood Count 8.0 x10^3/uL (4.0-11.0) Red Blood Count 4.28 x10^6/uL (4.30-5.70) Hemoglobin 13.3 g/dL (13.0-17.5) Hematocrit 41.0 % (39.0-53.0) Mean Corpuscular Volume 96 fL (79-100) Mean Corpuscular Hemoglobin 31 pg (25-35) Mean Corpuscular Hemoglobin Concent 32 g/dL (31-37) Red Cell Distribution Width 14.8 % (11.5-14.5) Platelet Count 143 x10^3/uL (140-400) Neutrophils (%) (Auto) 94 % (31-73) Lymphocytes (%) (Auto) 3 % (24-48) Monocytes (%) (Auto) 3 % (0-9) Eosinophils (%) (Auto) 0 % (0-3) Basophils (%) (Auto) 0 % (0-3) Neutrophils # (Auto) 7.5 x10^3/uL (1.8-7.7) Lymphocytes # (Auto) 0.2 x10^3/uL (1.0-4.8) Monocytes # (Auto) 0.3 x10^3/uL (0.0-1.1) Eosinophils # (Auto) 0.0 x10^3/uL (0.0-0.7) Basophils # (Auto) 0.0 x10^3/uL (0.0-0.2) Sodium Level 132 mmol/L (136-145) Potassium Level 5.1 mmol/L (3.5-5.1) Chloride Level 98 mmol/L (98-107) Carbon Dioxide Level 21 mmol/L (21-32) Anion Gap 13 (6-14) Blood Urea Nitrogen 50 mg/dL (8-26) Creatinine 1.2 mg/dL (0.7-1.3) Estimated GFR (Cockcroft-Gault) 61.3 Glucose Level 213 mg/dL (70-99) Calcium Level 8.7 mg/dL (8.5-10.1) Glucose (Fingerstick) 202 mg/dL (70-99) 261 mg/dL (70-99) 174 mg/dL (70-99) Test 03/26/21 20:15 Glucose (Fingerstick) 204 mg/dL (70-99) Comment Review of Relevant I have reviewed the following items traci (where applicable) has been applied. Justifications for Admission Other Justification LARY GILLIS MD Mar 26, 2021 21:19
[2021-03-26] MEDS: ATORVASTATIN CALCIUM 20 MG TABLET PO SCH (22:05)
[2021-03-26] MEDS: INSULIN GLARGINE SYRINGE. SQ SCH (22:20)
[2021-03-26 22:47] VITALS: BP 152/82
[2021-03-27] MEDS: STERILE WATER for RESP 1,000 ML BAG. INH PRN ×2 (02:03→21:22)
[2021-03-27 03:40] VITALS: BP 152/95
--- NOTE | 2021-03-27 06:01 | NUR ---
Up to BSC w/ SBA. + 1 lg brown formed stool. No MICHEL exhibited. SpO2s in the high 80s. Encouraged CDB. Takes shallow breaths. States he will "recover soon." Mirtha held-pt's urine appears to be very dark beba w/ small clots seen in tubing. Will discuss w/ RN.
--- NOTE | 2021-03-27 06:13 | NUR ---
re: note above. No clots seen in [place] this a.m. Lovenox administered.
[2021-03-27 07:00] VITALS: BP 139/78
[2021-03-27 07:32] LABS: BASO % 0 % (0-3); EOS % 0 % (0-3); HEMATOCRIT 42.2 % (39.0-53.0); HEMOGLOBIN 13.6 g/dL (13.0-17.5); LYMPH # 0.2 x10^3/uL (1.0-4.8); LYMPH % 2 % (24-48); MEAN CORPUSCULAR HEMOGLOBIN 31 pg (25-35); MEAN CORPUSCULAR HGB CONC 32 g/dL (31-37); MEAN CORPUSCULAR VOLUME 95 fL (79-100); MONO # 0.4 x10^3/uL (0.0-1.1); MONO % 4 % (0-9); NEUT % 94 % (31-73); PLATELET COUNT 152 x10^3/uL (140-400); RED BLOOD COUNT 4.43 x10^6/uL (4.30-5.70); RED CELL DISTRIBUTION WIDTH 14.8 % (11.5-14.5); WHITE BLOOD COUNT 9.6 x10^3/uL (4.0-11.0)
[2021-03-27] MEDS: ASPIRIN CHEWABLE 81 MG TABLET. PO SCH (08:00)
[2021-03-27 08:04] LABS: CALCIUM 8.9 mg/dL (8.5-10.1); CREATININE 1.3 mg/dL (0.7-1.3); GFR 55.9; POTASSIUM 4.9 mmol/L (3.5-5.1)
--- NOTE | 2021-03-27 08:18 | PDOC ---
PULMONARY PROGRESS NOTES DATE: 03/27/21 TIME: 08:18 Subjective Patient currently on 30 L flow 90% FiO2 feels about the same Normally takes Lasix at home Vitals Vital Signs Date Time Temp Pulse Resp B/P (MAP) Pulse Ox O2 Delivery O2 Flow Rate FiO2 03/27/21 07:33 84 Vapotherm 30.0 03/27/21 03:40 96.5 100 22 152/95 (114) 96.5 Comments Visual exam done due to COVID-19 viral pneumonia. No use of accessory muscles. No paradoxical breathing. Lower extremities with lymphedema. Lungs: Other (decreased air entry throughout) Labs Laboratory Tests Test 03/25/21 08:20 03/25/21 11:20 03/25/21 16:32 03/25/21 21:04 Glucose (Fingerstick) 228 mg/dL (70-99) 273 mg/dL (70-99) 219 mg/dL (70-99) 190 mg/dL (70-99) Test 03/26/21 07:50 03/26/21 08:23 03/26/21 11:15 03/26/21 16:25 White Blood Count 8.0 x10^3/uL (4.0-11.0) Red Blood Count 4.28 x10^6/uL (4.30-5.70) Hemoglobin 13.3 g/dL (13.0-17.5) Hematocrit 41.0 % (39.0-53.0) Mean Corpuscular Volume 96 fL (79-100) Mean Corpuscular Hemoglobin 31 pg (25-35) Mean Corpuscular Hemoglobin Concent 32 g/dL (31-37) Red Cell Distribution Width 14.8 % (11.5-14.5) Platelet Count 143 x10^3/uL (140-400) Neutrophils (%) (Auto) 94 % (31-73) Lymphocytes (%) (Auto) 3 % (24-48) Monocytes (%) (Auto) 3 % (0-9) Eosinophils (%) (Auto) 0 % (0-3) Basophils (%) (Auto) 0 % (0-3) Neutrophils # (Auto) 7.5 x10^3/uL (1.8-7.7) Lymphocytes # (Auto) 0.2 x10^3/uL (1.0-4.8) Monocytes # (Auto) 0.3 x10^3/uL (0.0-1.1) Eosinophils # (Auto) 0.0 x10^3/uL (0.0-0.7) Basophils # (Auto) 0.0 x10^3/uL (0.0-0.2) Sodium Level 132 mmol/L (136-145) Potassium Level 5.1 mmol/L (3.5-5.1) Chloride Level 98 mmol/L (98-107) Carbon Dioxide Level 21 mmol/L (21-32) Anion Gap 13 (6-14) Blood Urea Nitrogen 50 mg/dL (8-26) Creatinine 1.2 mg/dL (0.7-1.3) Estimated GFR (Cockcroft-Gault) 61.3 Glucose Level 213 mg/dL (70-99) Calcium Level 8.7 mg/dL (8.5-10.1) Glucose (Fingerstick) 202 mg/dL (70-99) 261 mg/dL (70-99) 174 mg/dL (70-99) Test 03/26/21 20:15 03/27/21 06:30 Glucose (Fingerstick) 204 mg/dL (70-99) White Blood Count 9.6 x10^3/uL (4.0-11.0) Red Blood Count 4.43 x10^6/uL (4.30-5.70) Hemoglobin 13.6 g/dL (13.0-17.5) Hematocrit 42.2 % (39.0-53.0) Mean Corpuscular Volume 95 fL (79-100) Mean Corpuscular Hemoglobin 31 pg (25-35) Mean Corpuscular Hemoglobin Concent 32 g/dL (31-37) Red Cell Distribution Width 14.8 % (11.5-14.5) Platelet Count 152 x10^3/uL (140-400) Neutrophils (%) (Auto) 94 % (31-73) Lymphocytes (%) (Auto) 2 % (24-48) Monocytes (%) (Auto) 4 % (0-9) Eosinophils (%) (Auto) 0 % (0-3) Basophils (%) (Auto) 0 % (0-3) Neutrophils # (Auto) 9.0 x10^3/uL (1.8-7.7) Lymphocytes # (Auto) 0.2 x10^3/uL (1.0-4.8) Monocytes # (Auto) 0.4 x10^3/uL (0.0-1.1) Eosinophils # (Auto) 0.0 x10^3/uL (0.0-0.7) Basophils # (Auto) 0.0 x10^3/uL (0.0-0.2) Sodium Level 128 mmol/L (136-145) Potassium Level 4.9 mmol/L (3.5-5.1) Chloride Level 94 mmol/L (98-107) Carbon Dioxide Level 19 mmol/L (21-32) Anion Gap 15 (6-14) Blood Urea Nitrogen 56 mg/dL (8-26) Creatinine 1.3 mg/dL (0.7-1.3) Estimated GFR (Cockcroft-Gault) 55.9 Glucose Level 249 mg/dL (70-99) Calcium Level 8.9 mg/dL (8.5-10.1) Laboratory Tests Test 03/26/21 08:23 03/26/21 11:15 03/26/21 16:25 03/26/21 20:15 Glucose (Fingerstick) 202 mg/dL (70-99) 261 mg/dL (70-99) 174 mg/dL (70-99) 204 mg/dL (70-99) Test 03/27/21 06:30 White Blood Count 9.6 x10^3/uL (4.0-11.0) Red Blood Count 4.43 x10^6/uL (4.30-5.70) Hemoglobin 13.6 g/dL (13.0-17.5) Hematocrit 42.2 % (39.0-53.0) Mean Corpuscular Volume 95 fL (79-100) Mean Corpuscular Hemoglobin 31 pg (25-35) Mean Corpuscular Hemoglobin Concent 32 g/dL (31-37) Red Cell Distribution Width 14.8 % (11.5-14.5) Platelet Count 152 x10^3/uL (140-400) Neutrophils (%) (Auto) 94 % (31-73) Lymphocytes (%) (Auto) 2 % (24-48) Monocytes (%) (Auto) 4 % (0-9) Eosinophils (%) (Auto) 0 % (0-3) Basophils (%) (Auto) 0 % (0-3) Neutrophils # (Auto) 9.0 x10^3/uL (1.8-7.7) Lymphocytes # (Auto) 0.2 x10^3/uL (1.0-4.8) Monocytes # (Auto) 0.4 x10^3/uL (0.0-1.1) Eosinophils # (Auto) 0.0 x10^3/uL (0.0-0.7) Basophils # (Auto) 0.0 x10^3/uL (0.0-0.2) Sodium Level 128 mmol/L (136-145) Potassium Level 4.9 mmol/L (3.5-5.1) Chloride Level 94 mmol/L (98-107) Carbon Dioxide Level 19 mmol/L (21-32) Anion Gap 15 (6-14) Blood Urea Nitrogen 56 mg/dL (8-26) Creatinine 1.3 mg/dL (0.7-1.3) Estimated GFR (Cockcroft-Gault) 55.9 Glucose Level 249 mg/dL (70-99) Calcium Level 8.9 mg/dL (8.5-10.1) Impression . 1. Acute hypoxic respiratory failure secondary to COVID-19 viral pneumonia leading to acute respiratory distress syndrome. 2. Abnormal chest x-ray with extensive bilateral infiltrates consistent with viral pneumonia. 3. Thrombocytopenia, likely caused by viral pneumonia. 4. C-reactive protein 41. Does not meet the criteria for Actemra. 5. Morbid obesity and underlying suspected chronic obstructive pulmonary disease highly contributing to the severity of hypoxia. 6. Lymphedema, component of cor -pulmonale . Plan . Updated 03/27 Continue oxygen supplementation Daily Lasix Up to chair Remdesivir Steroids DVT prophylaxis updated 03/26 Continue current support Remdesivir Steroids DVT prophylaxis EVAN JEAN BAPTISTE MD Mar 27, 2021 08:18
[2021-03-27] MEDS: IPRATROPIUM/ALBUTEROL 20/100mcg/INH INHALER. INH SCH ×4 (09:16→20:00)
[2021-03-27] MEDS: metFORMIN 500 MG TABLET PO SCH ×2 (09:16→17:36)
[2021-03-27] MEDS: FUROSEMIDE 40 MG TABLET. PO SCH (09:17)
[2021-03-27] MEDS: MULTIVITAMIN with MINERAL TABLET. PO SCH (09:17)
[2021-03-27] MEDS: LACTOBACILLUS RHAMNOSUS GG 1 CAPSULE. PO SCH ×2 (09:17→21:23)
[2021-03-27] MEDS: methylPREDNISolone SOD SUCC PF 125 MG/2 ML VIAL. IV SCH ×2 (09:17→21:21)
[2021-03-27] MEDS: INSULIN LISPRO 300 UNITS/3 ML VIAL. SQ SCH ×6 (09:19→17:00)
--- NOTE | 2021-03-27 10:53 | NUR ---
SS following up with discharge planning. SS reviewed pt chart and discussed with pt RN. Pt is currently on Vapotherm at 30 liters and 100%. COVID19 positive. Pt on IV Solu-Medrol, IV Azithromycin, and IV Rocephin. Not ready. SS will continue to follow for discharge planning. Addendum: 03/27/21 at 1132 by KYLER TORRES [facility] referral requested. SS phoned and faxed referral to [facility], ; fax [phone]. Addendum: 03/27/21 at 1603 by KYLER TORRES Pt accepted at [facility] pending insurance approval. Pt needing to be 10 days post positive COVID19 test. Pending insurance approval pt can admit on 03/31/2021.
[2021-03-27 11:00] VITALS: BP 135/76
--- NOTE | 2021-03-27 12:38 | PDOC ---
[employer] PROGRESS NOTE Date of Service DOS: DATE: 03/27/21 TIME: 12:35 Chief Complaint Chief Complaint A/P Acute hypoxic respiratory failure secondary to COVID-19 pneumonia COVID-19, respiratory failure. The patient has been admitted. I have consulted Dr. Fenton. I called the pharmacy. We started remdesivir. We will continue the Rocephin and azithromycin he was on. We will continue his steroids. I added in vitamins and minerals, oxygen, codeine cough syrup and aspirin and Lovenox. Trend his labs. Home meds. Deep venous thrombosis prophylaxis. Full code. Prognosis is guarded. History of Present Illness History of Present Illness The patient is a pleasant 60-year-old male who presented to [facility] with respiratory failure. He was placed on COVID-19 protocol. Their doctor called me, I have accepted the patient as a transfer. We are starting him on remdesivir. He is already on broad-spectrum antibiotics. I am also going to consult Pulmonary Medicine and put him on the rest of the COVID protocol. 03/22 Patient evaluated examined at bedside. Continue current Covid treatment. Pulmonary following. Antibiotics remdesivir fever oxygen as needed. Continue current plan. Plan of care discussed with bedside RN. 03/23 Late entry for March 23. Patient evaluated examined at bedside. Still on Covid treatment. Pulmonary following. Wean O2 as tolerated. Plan of care discussed with bedside RN. 03/24 Patient evaluated and examined at bedside. Still remains on Vapotherm no success with weaning. Appreciate pulmonary discussing advance care planning with patient. Continue current Covid treatment. Not a tocilizumab candidate. Plan of care discussed with bedside RN. 03/25 Patient evaluated and examined at bedside. Remains on Vapotherm unsuccessful to any weaning. Hyperkalemia a bit worse today will treat. Continue COVID treatments. Patient insistent on remaining a full code plan of care discussed with bedside RN. 03/26 Patient evaluated examined at bedside. Still on Vapotherm but on 30 L/min 90% F iO2. Wean as tolerated. Potassium okay today. Pulmonary following. Continue current plan otherwise. 03/27 Patient evaluated examined at bedside. Still remains on Vapotherm. Given difficulty with weaning and long duration of admission referral sent for LTAC today per social work. Pulmonary following. Vitals/I&O Vitals/I&O: Vital Signs Date Time Temp Pulse Resp B/P (MAP) Pulse Ox O2 Delivery O2 Flow Rate FiO2 03/27/21 12:25 91 Vapotherm 30.0 03/27/21 11:00 96.8 97 22 135/76 (95) 96.8 I & O 03/26/21 03/26/21 03/27/21 15:00 23:00 07:00 Intake Total 670 ml 795 ml 120 ml Output Total 900 ml 800 ml Balance 670 ml -105 ml -680 ml Physical Exam General: Alert, Oriented X3, Cooperative Heart: Regular rate, Normal S1, Normal S2 Lungs: Other (decreased air entry throughout) Abdomen: Normal bowel sounds, Soft, No tenderness Extremities: No edema, Normal pulses Skin: No significant lesion Labs Labs: Laboratory Tests Test 03/26/21 16:25 03/26/21 20:15 03/27/21 06:30 03/27/21 08:34 Glucose (Fingerstick) 174 mg/dL (70-99) 204 mg/dL (70-99) 235 mg/dL (70-99) White Blood Count 9.6 x10^3/uL (4.0-11.0) Red Blood Count 4.43 x10^6/uL (4.30-5.70) Hemoglobin 13.6 g/dL (13.0-17.5) Hematocrit 42.2 % (39.0-53.0) Mean Corpuscular Volume 95 fL (79-100) Mean Corpuscular Hemoglobin 31 pg (25-35) Mean Corpuscular Hemoglobin Concent 32 g/dL (31-37) Red Cell Distribution Width 14.8 % (11.5-14.5) Platelet Count 152 x10^3/uL (140-400) Neutrophils (%) (Auto) 94 % (31-73) Lymphocytes (%) (Auto) 2 % (24-48) Monocytes (%) (Auto) 4 % (0-9) Eosinophils (%) (Auto) 0 % (0-3) Basophils (%) (Auto) 0 % (0-3) Neutrophils # (Auto) 9.0 x10^3/uL (1.8-7.7) Lymphocytes # (Auto) 0.2 x10^3/uL (1.0-4.8) Monocytes # (Auto) 0.4 x10^3/uL (0.0-1.1) Eosinophils # (Auto) 0.0 x10^3/uL (0.0-0.7) Basophils # (Auto) 0.0 x10^3/uL (0.0-0.2) Sodium Level 128 mmol/L (136-145) Potassium Level 4.9 mmol/L (3.5-5.1) Chloride Level 94 mmol/L (98-107) Carbon Dioxide Level 19 mmol/L (21-32) Anion Gap 15 (6-14) Blood Urea Nitrogen 56 mg/dL (8-26) Creatinine 1.3 mg/dL (0.7-1.3) Estimated GFR (Cockcroft-Gault) 55.9 Glucose Level 249 mg/dL (70-99) Calcium Level 8.9 mg/dL (8.5-10.1) Test 03/27/21 12:05 Glucose (Fingerstick) 218 mg/dL (70-99) Comment Review of Relevant I have reviewed the following items traci (where applicable) has been applied. Justifications for Admission Other Justification LARY GILLIS MD Mar 27, 2021 12:38
--- NOTE | 2021-03-27 13:04 | NUR ---
MEDICATION NOTE: PT DECLINED INSULIN DOSING AT LUNCH TIME. FSBS IS 218, BUT PT REPORTS NO APPETITE.
[2021-03-27 15:00] VITALS: BP 120/66
[2021-03-27] MEDS: cefTRIAXone IV Push 1 GM VIAL. IVP SCH (17:35)
--- NOTE | 2021-03-27 17:38 | NUR ---
MEDICATION NOTE PT REFUSES INSULIN, HAS NO APPETITE, NOT EATING. EDUCATION PROVIDED...BUT CONT TO REFUSE
[2021-03-27 19:48] VITALS: BP 136/93
[2021-03-27] MEDS: INSULIN GLARGINE SYRINGE. SQ SCH (21:00)
[2021-03-27] MEDS: AZITHROMYCIN 500 MG in IV NORMAL SALINE 250ML 250 ML IV SCH (21:22)
[2021-03-27] MEDS: ATORVASTATIN CALCIUM 20 MG TABLET PO SCH (21:23)
[2021-03-27 22:02] VITALS: BP 135/70
[2021-03-28 03:00] VITALS: BP 125/74
[2021-03-28 06:29] LABS: BASO % 0 % (0-3); EOS % 0 % (0-3); HEMATOCRIT 43.7 % (39.0-53.0); HEMOGLOBIN 14.3 g/dL (13.0-17.5); LYMPH # 0.2 x10^3/uL (1.0-4.8); LYMPH % 2 % (24-48); MEAN CORPUSCULAR HEMOGLOBIN 31 pg (25-35); MEAN CORPUSCULAR HGB CONC 33 g/dL (31-37); MEAN CORPUSCULAR VOLUME 94 fL (79-100); MONO # 0.3 x10^3/uL (0.0-1.1); MONO % 3 % (0-9); NEUT # 8.9 x10^3/uL (1.8-7.7); NEUT % 95 % (31-73); PLATELET COUNT 172 x10^3/uL (140-400); RED BLOOD COUNT 4.63 x10^6/uL (4.30-5.70); RED CELL DISTRIBUTION WIDTH 14.9 % (11.5-14.5); WHITE BLOOD COUNT 9.4 x10^3/uL (4.0-11.0)
[2021-03-28 06:32] LABS: CALCIUM 8.8 mg/dL (8.5-10.1); CREATININE 1.4 mg/dL (0.7-1.3); GFR 51.4; POTASSIUM 5.1 mmol/L (3.5-5.1)
[2021-03-28 07:00] VITALS: BP 117/74
[2021-03-28] MEDS: INSULIN LISPRO 300 UNITS/3 ML VIAL. SQ SCH ×6 (08:00→17:35)
--- NOTE | 2021-03-28 08:23 | PDOC ---
PULMONARY PROGRESS NOTES DATE: 03/28/21 TIME: 08:23 Subjective Patient remains critically ill, 40 L flow, 100% FiO2 Some blood in his urine Normally takes Lasix at home Vitals Vital Signs Date Time Temp Pulse Resp B/P (MAP) Pulse Ox O2 Delivery O2 Flow Rate FiO2 03/28/21 07:21 95 Vapotherm 40.0 03/28/21 03:00 98.3 96 22 125/74 (91) 98.3 Comments Visual exam done due to COVID-19 viral pneumonia. No use of accessory muscles. No paradoxical breathing. Lower extremities with lymphedema. Lungs: Other (decreased air entry throughout) Labs Laboratory Tests Test 03/26/21 11:15 03/26/21 16:25 03/26/21 20:15 03/27/21 06:30 Glucose (Fingerstick) 261 mg/dL (70-99) 174 mg/dL (70-99) 204 mg/dL (70-99) White Blood Count 9.6 x10^3/uL (4.0-11.0) Red Blood Count 4.43 x10^6/uL (4.30-5.70) Hemoglobin 13.6 g/dL (13.0-17.5) Hematocrit 42.2 % (39.0-53.0) Mean Corpuscular Volume 95 fL (79-100) Mean Corpuscular Hemoglobin 31 pg (25-35) Mean Corpuscular Hemoglobin Concent 32 g/dL (31-37) Red Cell Distribution Width 14.8 % (11.5-14.5) Platelet Count 152 x10^3/uL (140-400) Neutrophils (%) (Auto) 94 % (31-73) Lymphocytes (%) (Auto) 2 % (24-48) Monocytes (%) (Auto) 4 % (0-9) Eosinophils (%) (Auto) 0 % (0-3) Basophils (%) (Auto) 0 % (0-3) Neutrophils # (Auto) 9.0 x10^3/uL (1.8-7.7) Lymphocytes # (Auto) 0.2 x10^3/uL (1.0-4.8) Monocytes # (Auto) 0.4 x10^3/uL (0.0-1.1) Eosinophils # (Auto) 0.0 x10^3/uL (0.0-0.7) Basophils # (Auto) 0.0 x10^3/uL (0.0-0.2) Sodium Level 128 mmol/L (136-145) Potassium Level 4.9 mmol/L (3.5-5.1) Chloride Level 94 mmol/L (98-107) Carbon Dioxide Level 19 mmol/L (21-32) Anion Gap 15 (6-14) Blood Urea Nitrogen 56 mg/dL (8-26) Creatinine 1.3 mg/dL (0.7-1.3) Estimated GFR (Cockcroft-Gault) 55.9 Glucose Level 249 mg/dL (70-99) Calcium Level 8.9 mg/dL (8.5-10.1) Test 03/27/21 08:34 03/27/21 12:05 03/27/21 17:03 03/27/21 20:10 Glucose (Fingerstick) 235 mg/dL (70-99) 218 mg/dL (70-99) 233 mg/dL (70-99) 242 mg/dL (70-99) Test 03/28/21 04:45 03/28/21 08:07 White Blood Count 9.4 x10^3/uL (4.0-11.0) Red Blood Count 4.63 x10^6/uL (4.30-5.70) Hemoglobin 14.3 g/dL (13.0-17.5) Hematocrit 43.7 % (39.0-53.0) Mean Corpuscular Volume 94 fL (79-100) Mean Corpuscular Hemoglobin 31 pg (25-35) Mean Corpuscular Hemoglobin Concent 33 g/dL (31-37) Red Cell Distribution Width 14.9 % (11.5-14.5) Platelet Count 172 x10^3/uL (140-400) Neutrophils (%) (Auto) 95 % (31-73) Lymphocytes (%) (Auto) 2 % (24-48) Monocytes (%) (Auto) 3 % (0-9) Eosinophils (%) (Auto) 0 % (0-3) Basophils (%) (Auto) 0 % (0-3) Neutrophils # (Auto) 8.9 x10^3/uL (1.8-7.7) Lymphocytes # (Auto) 0.2 x10^3/uL (1.0-4.8) Monocytes # (Auto) 0.3 x10^3/uL (0.0-1.1) Eosinophils # (Auto) 0.0 x10^3/uL (0.0-0.7) Basophils # (Auto) 0.0 x10^3/uL (0.0-0.2) Sodium Level 127 mmol/L (136-145) Potassium Level 5.1 mmol/L (3.5-5.1) Chloride Level 93 mmol/L (98-107) Carbon Dioxide Level 22 mmol/L (21-32) Anion Gap 12 (6-14) Blood Urea Nitrogen 59 mg/dL (8-26) Creatinine 1.4 mg/dL (0.7-1.3) Estimated GFR (Cockcroft-Gault) 51.4 Glucose Level 241 mg/dL (70-99) Calcium Level 8.8 mg/dL (8.5-10.1) Glucose (Fingerstick) 245 mg/dL (70-99) Laboratory Tests Test 03/27/21 08:34 03/27/21 12:05 03/27/21 17:03 03/27/21 20:10 Glucose (Fingerstick) 235 mg/dL (70-99) 218 mg/dL (70-99) 233 mg/dL (70-99) 242 mg/dL (70-99) Test 03/28/21 04:45 03/28/21 08:07 White Blood Count 9.4 x10^3/uL (4.0-11.0) Red Blood Count 4.63 x10^6/uL (4.30-5.70) Hemoglobin 14.3 g/dL (13.0-17.5) Hematocrit 43.7 % (39.0-53.0) Mean Corpuscular Volume 94 fL (79-100) Mean Corpuscular Hemoglobin 31 pg (25-35) Mean Corpuscular Hemoglobin Concent 33 g/dL (31-37) Red Cell Distribution Width 14.9 % (11.5-14.5) Platelet Count 172 x10^3/uL (140-400) Neutrophils (%) (Auto) 95 % (31-73) Lymphocytes (%) (Auto) 2 % (24-48) Monocytes (%) (Auto) 3 % (0-9) Eosinophils (%) (Auto) 0 % (0-3) Basophils (%) (Auto) 0 % (0-3) Neutrophils # (Auto) 8.9 x10^3/uL (1.8-7.7) Lymphocytes # (Auto) 0.2 x10^3/uL (1.0-4.8) Monocytes # (Auto) 0.3 x10^3/uL (0.0-1.1) Eosinophils # (Auto) 0.0 x10^3/uL (0.0-0.7) Basophils # (Auto) 0.0 x10^3/uL (0.0-0.2) Sodium Level 127 mmol/L (136-145) Potassium Level 5.1 mmol/L (3.5-5.1) Chloride Level 93 mmol/L (98-107) Carbon Dioxide Level 22 mmol/L (21-32) Anion Gap 12 (6-14) Blood Urea Nitrogen 59 mg/dL (8-26) Creatinine 1.4 mg/dL (0.7-1.3) Estimated GFR (Cockcroft-Gault) 51.4 Glucose Level 241 mg/dL (70-99) Calcium Level 8.8 mg/dL (8.5-10.1) Glucose (Fingerstick) 245 mg/dL (70-99) Impression . 1. Acute hypoxic respiratory failure secondary to COVID-19 viral pneumonia leading to acute respiratory distress syndrome. 2. Abnormal chest x-ray with extensive bilateral infiltrates consistent with viral pneumonia. 3. Thrombocytopenia, likely caused by viral pneumonia. 4. C-reactive protein 41. Does not meet the criteria for Actemra. 5. Morbid obesity and underlying suspected chronic obstructive pulmonary disease highly contributing to the severity of hypoxia. 6. Lymphedema, component of cor -pulmonale . 7. Hematuria Plan . Updated 03/28 Continue oxygen per Vapotherm, patient appears comfortable If continues to be tenuous and critically ill Daily Lasix Up to chair Remdesivir Continue anticoagulation for now, if hematuria worsens will discontinue. Updated 03/27 Continue oxygen supplementation Daily Lasix Up to chair Remdesivir Steroids DVT prophylaxis EVAN JEAN BAPTISTE MD Mar 28, 2021 08:23
[2021-03-28] MEDS: methylPREDNISolone SOD SUCC PF 125 MG/2 ML VIAL. IV SCH ×2 (09:00→22:04)
[2021-03-28] MEDS: ASPIRIN CHEWABLE 81 MG TABLET. PO SCH (10:07)
[2021-03-28] MEDS: LACTOBACILLUS RHAMNOSUS GG 1 CAPSULE. PO SCH ×2 (10:07→22:06)
[2021-03-28] MEDS: metFORMIN 500 MG TABLET PO SCH ×2 (10:07→17:33)
[2021-03-28] MEDS: IPRATROPIUM/ALBUTEROL 20/100mcg/INH INHALER. INH SCH ×4 (10:07→20:00)
[2021-03-28] MEDS: FUROSEMIDE 40 MG TABLET. PO SCH (10:07)
[2021-03-28] MEDS: MULTIVITAMIN with MINERAL TABLET. PO SCH (10:07)
--- NOTE | 2021-03-28 10:13 | NUR ---
SS following up with discharge planning. SS reviewed pt chart and discussed with pt RN. Pt is currently on Vapotherm at 40 liters and 100% and non-rebreather. COVID19 positive. Pt on IV Solu-Medrol, IV Azithromycin, and IV Rocephin. Pt accepted at [facility], ; fax [phone], pending insurance approval. Pt needing to be 10 days post COVID19 from 03/21. Pt able to admit on 03/31/2021. SS will continue to follow for discharge planning.
[2021-03-28 11:00] VITALS: BP 141/78
[2021-03-28 15:00] VITALS: BP 162/101
--- NOTE | 2021-03-28 15:26 | NUR ---
Allergies and reactions NKDA INR BUN 59 Cr 1.4 Platelets 172 Blood culture done N blood culture results Order Verified Y Consent signed Y Previous PICC placement N Past Medical/Surgical history and current diagnosis reviewed Y Patient Medical /Surgical History Related to PICC line placement Arrhythmias Diabetes Infectious Disease consult Problems breathing lying flat Special considerations for PICC line placement Anticoagulation therapy Infections PICC placement indication Caustic medication class drug usage, terminal makeup operator antibiotic usage, Multiple/ Frequent blood draws, Poor peripheral intravenous access Zeynep David RN name of PICC Nurse
--- NOTE | 2021-03-28 15:32 | NUR ---
Procedure: Following complete explanation of the PICC procedure including the indications, risks, and potential complications, informed consent was obtained. The possibility for infection was discussed along with signs, symptoms, and prevention. All the questions were answered. Written and verbal patient education was provided. Hand hygiene performed. Standardized central line checklist was utilized. The patient was placed in the supine position, the arm was prepped with chlorhexidine and patient draped with maximum sterile barrier. 3 mL 1% lidocaine was infiltrated into the skin to provide local anesthesia. A thorough assessment of right upper extremity completed. Using real-time ultrasound guidance and standardized micro puncture set, the brachial vein was punctured and a peel away sheath was placed using the modified Seldinger technique. A tip location device was used to ensure adequate catheter placement. The catheter was secured using a securement device and an antimicrobial patch was applied directly on the insertion site followed by a transparent dressing. All ports withdraw blood and flush without resistance. Patient tolerated the procedure without apparent complication(s). Double Lumen Power PICC placement successful and uncomplicated. Placement verified by chest x-ray. Tip located in the CAJ Complications: None
--- NOTE | 2021-03-28 15:35 | RAD ---
Single view of the chest. 03/28/2021 3:14 PM Indication: Reason: confirm PICC line placement / Spl. Instructions: / History: Comparison: None Findings: There is right upper extremity PICC line with tip the cavoatrial junction. There is no pneu mothorax. No pleural effusion. Bilateral pulmonary infiltrates are seen. Heart is enlarged. No acute osseous changes are identified. IMPRESSION: 1. Right upper extremity PICC line with tip the cavoatrial junction. 2. Patchy bilateral pulmonary infiltrates. Findings could represent edema, developing ARDS, or pneumo joby 3. Severe cardiomegaly Electronically signed by: Parish Estrada MD (03/28/2021 3:33 PM) [id number]
[2021-03-28] MEDS: cefTRIAXone IV Push 1 GM VIAL. IVP SCH (17:32)
[2021-03-28 19:29] VITALS: BP 142/76
[2021-03-28] MEDS: AZITHROMYCIN 500 MG in IV NORMAL SALINE 250ML 250 ML IV SCH (22:06)
[2021-03-28] MEDS: ATORVASTATIN CALCIUM 20 MG TABLET PO SCH (22:06)
[2021-03-28] MEDS: INSULIN GLARGINE SYRINGE. SQ SCH (22:09)
--- NOTE | 2021-03-28 22:39 | PDOC ---
[employer] PROGRESS NOTE Date of Service DOS: DATE: 03/28/21 TIME: 22:38 Chief Complaint Chief Complaint A/P Acute hypoxic respiratory failure secondary to COVID-19 pneumonia COVID-19, respiratory failure. The patient has been admitted. I have consulted Dr. Fenton. I called the pharmacy. We started remdesivir. We will continue the Rocephin and azithromycin he was on. We will continue his steroids. I added in vitamins and minerals, oxygen, codeine cough syrup and aspirin and Lovenox. Trend his labs. Home meds. Deep venous thrombosis prophylaxis. Full code. Prognosis is guarded. History of Present Illness History of Present Illness The patient is a pleasant 60-year-old male who presented to [facility] with respiratory failure. He was placed on COVID-19 protocol. Their doctor called me, I have accepted the patient as a transfer. We are starting him on remdesivir. He is already on broad-spectrum antibiotics. I am also going to consult Pulmonary Medicine and put him on the rest of the COVID protocol. 03/22 Patient evaluated examined at bedside. Continue current Covid treatment. Pulmonary following. Antibiotics remdesivir fever oxygen as needed. Continue current plan. Plan of care discussed with bedside RN. 03/23 Late entry for March 23. Patient evaluated examined at bedside. Still on Covid treatment. Pulmonary following. Wean O2 as tolerated. Plan of care discussed with bedside RN. 03/24 Patient evaluated and examined at bedside. Still remains on Vapotherm no success with weaning. Appreciate pulmonary discussing advance care planning with patient. Continue current Covid treatment. Not a tocilizumab candidate. Plan of care discussed with bedside RN. 03/25 Patient evaluated and examined at bedside. Remains on Vapotherm unsuccessful to any weaning. Hyperkalemia a bit worse today will treat. Continue COVID treatments. Patient insistent on remaining a full code plan of care discussed with bedside RN. 03/26 Patient evaluated examined at bedside. Still on Vapotherm but on 30 L/min 90% F iO2. Wean as tolerated. Potassium okay today. Pulmonary following. Continue current plan otherwise. 03/27 Patient evaluated examined at bedside. Still remains on Vapotherm. Given difficulty with weaning and long duration of admission referral sent for LTAC today per social work. Pulmonary following. 03/28 Patient evaluated examined at bedside. Remains on Vapotherm. LTAC discharge on Thursday looks like Vitals/I&O Vitals/I&O: Vital Signs Date Time Temp Pulse Resp B/P (MAP) Pulse Ox O2 Delivery O2 Flow Rate FiO2 03/28/21 19:45 97 Vapotherm 40.0 03/28/21 19:29 98.1 98 22 142/76 (98) 98.1 I & O 03/27/21 03/27/21 03/28/21 15:00 23:00 07:00 Intake Total 355 ml 300 ml 500 ml Output Total 800 ml 550 ml Balance 355 ml -500 ml -50 ml Physical Exam General: Alert, Oriented X3, Cooperative Heart: Regular rate, Normal S1, Normal S2 Lungs: Other (decreased air entry throughout) Abdomen: Normal bowel sounds, Soft, No tenderness Extremities: No edema, Normal pulses Skin: No significant lesion Labs Labs: Laboratory Tests Test 03/28/21 04:45 03/28/21 08:07 03/28/21 11:53 03/28/21 16:46 White Blood Count 9.4 x10^3/uL (4.0-11.0) Red Blood Count 4.63 x10^6/uL (4.30-5.70) Hemoglobin 14.3 g/dL (13.0-17.5) Hematocrit 43.7 % (39.0-53.0) Mean Corpuscular Volume 94 fL (79-100) Mean Corpuscular Hemoglobin 31 pg (25-35) Mean Corpuscular Hemoglobin Concent 33 g/dL (31-37) Red Cell Distribution Width 14.9 % (11.5-14.5) Platelet Count 172 x10^3/uL (140-400) Neutrophils (%) (Auto) 95 % (31-73) Lymphocytes (%) (Auto) 2 % (24-48) Monocytes (%) (Auto) 3 % (0-9) Eosinophils (%) (Auto) 0 % (0-3) Basophils (%) (Auto) 0 % (0-3) Neutrophils # (Auto) 8.9 x10^3/uL (1.8-7.7) Lymphocytes # (Auto) 0.2 x10^3/uL (1.0-4.8) Monocytes # (Auto) 0.3 x10^3/uL (0.0-1.1) Eosinophils # (Auto) 0.0 x10^3/uL (0.0-0.7) Basophils # (Auto) 0.0 x10^3/uL (0.0-0.2) Sodium Level 127 mmol/L (136-145) Potassium Level 5.1 mmol/L (3.5-5.1) Chloride Level 93 mmol/L (98-107) Carbon Dioxide Level 22 mmol/L (21-32) Anion Gap 12 (6-14) Blood Urea Nitrogen 59 mg/dL (8-26) Creatinine 1.4 mg/dL (0.7-1.3) Estimated GFR (Cockcroft-Gault) 51.4 Glucose Level 241 mg/dL (70-99) Calcium Level 8.8 mg/dL (8.5-10.1) Glucose (Fingerstick) 245 mg/dL (70-99) 283 mg/dL (70-99) 243 mg/dL (70-99) Test 03/28/21 20:54 Glucose (Fingerstick) 201 mg/dL (70-99) Comment Review of Relevant I have reviewed the following items traci (where applicable) has been applied. Justifications for Admission Other Justification LARY GILLIS MD Mar 28, 2021 22:39
[2021-03-28 23:00] VITALS: BP 140/70
[2021-03-29 02:27] VITALS: BP 141/65
[2021-03-29] MEDS: STERILE WATER for RESP 1,000 ML BAG. INH PRN ×2 (02:44→12:29)
[2021-03-29 07:00] VITALS: BP 145/86
[2021-03-29] MEDS: MULTIVITAMIN with MINERAL TABLET. PO SCH (08:38)
[2021-03-29] MEDS: LACTOBACILLUS RHAMNOSUS GG 1 CAPSULE. PO SCH ×2 (08:38→22:56)
[2021-03-29] MEDS: metFORMIN 500 MG TABLET PO SCH ×3 (08:39→16:58)
[2021-03-29] MEDS: FUROSEMIDE 40 MG TABLET. PO SCH (08:39)
[2021-03-29] MEDS: IPRATROPIUM/ALBUTEROL 20/100mcg/INH INHALER. INH SCH ×4 (08:39→20:00)
[2021-03-29] MEDS: ASPIRIN CHEWABLE 81 MG TABLET. PO SCH (08:39)
[2021-03-29] MEDS: INSULIN LISPRO 300 UNITS/3 ML VIAL. SQ SCH ×6 (08:41→16:48)
[2021-03-29] MEDS: methylPREDNISolone SOD SUCC PF 125 MG/2 ML VIAL. IV SCH ×2 (08:41→22:57)
--- NOTE | 2021-03-29 08:55 | PDOC ---
PULMONARY PROGRESS NOTES DATE: 03/29/21 TIME: 08:55 Subjective No new complaints patient remains critically ill, 40 L flow, 100% FiO2 Some blood in his urine Normally takes Lasix at home Vitals Vital Signs Date Time Temp Pulse Resp B/P (MAP) Pulse Ox O2 Delivery O2 Flow Rate FiO2 03/29/21 08:38 98 145/86 03/29/21 07:49 94 Vapotherm 40.0 03/29/21 07:00 96.3 24 96.3 Comments Visual exam done due to COVID-19 viral pneumonia. No use of accessory muscles. No paradoxical breathing. Lower extremities with lymphedema. Lungs: Other (decreased air entry throughout) Labs Laboratory Tests Test 03/27/21 12:05 03/27/21 17:03 03/27/21 20:10 03/28/21 04:45 Glucose (Fingerstick) 218 mg/dL (70-99) 233 mg/dL (70-99) 242 mg/dL (70-99) White Blood Count 9.4 x10^3/uL (4.0-11.0) Red Blood Count 4.63 x10^6/uL (4.30-5.70) Hemoglobin 14.3 g/dL (13.0-17.5) Hematocrit 43.7 % (39.0-53.0) Mean Corpuscular Volume 94 fL (79-100) Mean Corpuscular Hemoglobin 31 pg (25-35) Mean Corpuscular Hemoglobin Concent 33 g/dL (31-37) Red Cell Distribution Width 14.9 % (11.5-14.5) Platelet Count 172 x10^3/uL (140-400) Neutrophils (%) (Auto) 95 % (31-73) Lymphocytes (%) (Auto) 2 % (24-48) Monocytes (%) (Auto) 3 % (0-9) Eosinophils (%) (Auto) 0 % (0-3) Basophils (%) (Auto) 0 % (0-3) Neutrophils # (Auto) 8.9 x10^3/uL (1.8-7.7) Lymphocytes # (Auto) 0.2 x10^3/uL (1.0-4.8) Monocytes # (Auto) 0.3 x10^3/uL (0.0-1.1) Eosinophils # (Auto) 0.0 x10^3/uL (0.0-0.7) Basophils # (Auto) 0.0 x10^3/uL (0.0-0.2) Sodium Level 127 mmol/L (136-145) Potassium Level 5.1 mmol/L (3.5-5.1) Chloride Level 93 mmol/L (98-107) Carbon Dioxide Level 22 mmol/L (21-32) Anion Gap 12 (6-14) Blood Urea Nitrogen 59 mg/dL (8-26) Creatinine 1.4 mg/dL (0.7-1.3) Estimated GFR (Cockcroft-Gault) 51.4 Glucose Level 241 mg/dL (70-99) Calcium Level 8.8 mg/dL (8.5-10.1) Test 03/28/21 08:07 03/28/21 11:53 03/28/21 16:46 03/28/21 20:54 Glucose (Fingerstick) 245 mg/dL (70-99) 283 mg/dL (70-99) 243 mg/dL (70-99) 201 mg/dL (70-99) Test 03/29/21 08:06 Glucose (Fingerstick) 244 mg/dL (70-99) Laboratory Tests Test 03/28/21 11:53 03/28/21 16:46 03/28/21 20:54 03/29/21 08:06 Glucose (Fingerstick) 283 mg/dL (70-99) 243 mg/dL (70-99) 201 mg/dL (70-99) 244 mg/dL (70-99) Impression . 1. Acute hypoxic respiratory failure secondary to COVID-19 viral pneumonia leading to acute respiratory distress syndrome. 2. Abnormal chest x-ray with extensive bilateral infiltrates consistent with viral pneumonia. 3. Thrombocytopenia, likely caused by viral pneumonia. 4. C-reactive protein 41. Does not meet the criteria for Actemra. 5. Morbid obesity and underlying suspected chronic obstructive pulmonary disease highly contributing to the severity of hypoxia. 6. Lymphedema, component of cor -pulmonale . 7. Hematuria Plan . Updated 03/29 Continue to diurese Vapotherm Remdesivir Anticoagulation per PCP updated 03/28 Continue oxygen per Vapotherm, patient appears comfortable If continues to be tenuous and critically ill Daily Lasix Up to chair Remdesivir Continue anticoagulation for now, if hematuria worsens will discontinue. EVAN JEAN BAPTISTE MD Mar 29, 2021 08:55
[2021-03-29 11:00] VITALS: BP 134/73
--- NOTE | 2021-03-29 12:53 | PDOC ---
[employer] PROGRESS NOTE Date of Service DOS: DATE: 03/29/21 TIME: 12:52 Chief Complaint Chief Complaint A/P Acute hypoxic respiratory failure secondary to COVID-19 pneumonia COVID-19, respiratory failure. The patient has been admitted. I have consulted Dr. Fenton. I called the pharmacy. We started remdesivir. We will continue the Rocephin and azithromycin he was on. We will continue his steroids. I added in vitamins and minerals, oxygen, codeine cough syrup and aspirin and Lovenox. Trend his labs. Home meds. Deep venous thrombosis prophylaxis. Full code. Prognosis is guarded. History of Present Illness History of Present Illness The patient is a pleasant 60-year-old male who presented to [facility] with respiratory failure. He was placed on COVID-19 protocol. Their doctor called me, I have accepted the patient as a transfer. We are starting him on remdesivir. He is already on broad-spectrum antibiotics. I am also going to consult Pulmonary Medicine and put him on the rest of the COVID protocol. 03/22 Patient evaluated examined at bedside. Continue current Covid treatment. Pulmonary following. Antibiotics remdesivir fever oxygen as needed. Continue current plan. Plan of care discussed with bedside RN. 03/23 Late entry for March 23. Patient evaluated examined at bedside. Still on Covid treatment. Pulmonary following. Wean O2 as tolerated. Plan of care discussed with bedside RN. 03/24 Patient evaluated and examined at bedside. Still remains on Vapotherm no success with weaning. Appreciate pulmonary discussing advance care planning with patient. Continue current Covid treatment. Not a tocilizumab candidate. Plan of care discussed with bedside RN. 03/25 Patient evaluated and examined at bedside. Remains on Vapotherm unsuccessful to any weaning. Hyperkalemia a bit worse today will treat. Continue COVID treatments. Patient insistent on remaining a full code plan of care discussed with bedside RN. 03/26 Patient evaluated examined at bedside. Still on Vapotherm but on 30 L/min 90% F iO2. Wean as tolerated. Potassium okay today. Pulmonary following. Continue current plan otherwise. 03/27 Patient evaluated examined at bedside. Still remains on Vapotherm. Given difficulty with weaning and long duration of admission referral sent for LTAC today per social work. Pulmonary following. 03/28 Patient evaluated examined at bedside. Remains on Vapotherm. LTAC discharge on Thursday looks like 03/29 Patient evaluated examined at bedside. Remains on Vapotherm with success with meeting. Trying Lasix per pulmonary. May be LTAC accepted Thursday. Vitals/I&O Vitals/I&O: Vital Signs Date Time Temp Pulse Resp B/P (MAP) Pulse Ox O2 Delivery O2 Flow Rate FiO2 03/29/21 11:53 95 Vapotherm 40.0 03/29/21 11:00 98.9 100 24 134/73 (93) 98.9 I & O 03/28/21 03/28/21 03/29/21 15:00 23:00 07:00 Intake Total 460 ml 150 ml 720 ml Output Total 1000 ml 500 ml Balance 460 ml -850 ml 220 ml Physical Exam General: Alert, Oriented X3, Cooperative Heart: Regular rate, Normal S1, Normal S2 Lungs: Other (decreased air entry throughout) Abdomen: Normal bowel sounds, Soft, No tenderness Extremities: No edema, Normal pulses Skin: No significant lesion Labs Labs: Laboratory Tests Test 03/28/21 16:46 03/28/21 20:54 03/29/21 08:06 03/29/21 11:16 Glucose (Fingerstick) 243 mg/dL (70-99) 201 mg/dL (70-99) 244 mg/dL (70-99) 276 mg/dL (70-99) Comment Review of Relevant I have reviewed the following items traci (where applicable) has been applied. Medications: Current Medications Medications (Trade) Dose Ordered Sig/Holly Route PRN Reason Start Time Stop Time Status Last Admin Dose Admin Enoxaparin Sodium (Lovenox 60mg Syringe) 60 mg Q12HR SQ 03/29/21 09:00 03/29/21 08:46 Justifications for Admission Other Justification LARY GILLIS MD Mar 29, 2021 12:53
--- NOTE | 2021-03-29 12:56 | NUR ---
SS following up with discharge planning. SS reviewed pt chart and discussed with pt RN. Pt is currently on Vapotherm at 40 liters and 100%. COVID19 positive. Pt on IV Solu-Medrol, IV Rocephin, and IV Azithromycin. Pt accepted at [facility], ; fax [phone], pending insurance approval. Pt will be ten days post COVID19 on 03/31/2021 and will be able to admit to LTACH at that time pending insurance approval. Clinical updates phoned and faxed to [facility]. Packet placed on chart. SS will continue to follow for discharge planning.
[2021-03-29 15:00] VITALS: BP 134/74
[2021-03-29] MEDS: cefTRIAXone IV Push 1 GM VIAL. IVP SCH (16:50)
[2021-03-29 19:30] VITALS: BP 132/76
[2021-03-29] MEDS: ATORVASTATIN CALCIUM 20 MG TABLET PO SCH (22:56)
[2021-03-29] MEDS: AZITHROMYCIN 500 MG in IV NORMAL SALINE 250ML 250 ML IV SCH (22:57)
[2021-03-29] MEDS: INSULIN GLARGINE SYRINGE. SQ SCH (22:58)
[2021-03-29 23:35] VITALS: BP 142/72
[2021-03-30 03:20] VITALS: BP 128/67
[2021-03-30 06:40] VITALS: BP 131/85
[2021-03-30] MEDS: INSULIN LISPRO 300 UNITS/3 ML VIAL. SQ SCH ×6 (07:30→18:19)
[2021-03-30] MEDS: IPRATROPIUM/ALBUTEROL 20/100mcg/INH INHALER. INH SCH ×4 (08:00→20:00)
--- NOTE | 2021-03-30 08:32 | PDOC ---
PULMONARY PROGRESS NOTES DATE: 03/30/21 TIME: 08:30 Subjective sob better on vapotherm Vitals Vital Signs Date Time Temp Pulse Resp B/P (MAP) Pulse Ox O2 Delivery O2 Flow Rate FiO2 03/30/21 07:38 90 Vapotherm 40.0 03/30/21 06:40 97.7 90 18 131/85 (100) 97.7 Comments Visual exam done due to COVID-19 viral pneumonia. no distress nc at rr abd obese No use of accessory muscles. No paradoxical breathing. Lower extremities with lymphedema. Labs Laboratory Tests Test 03/28/21 11:53 03/28/21 16:46 03/28/21 20:54 03/29/21 08:06 Glucose (Fingerstick) 283 mg/dL (70-99) 243 mg/dL (70-99) 201 mg/dL (70-99) 244 mg/dL (70-99) Test 03/29/21 11:16 03/29/21 16:30 03/29/21 20:53 03/30/21 07:59 Glucose (Fingerstick) 276 mg/dL (70-99) 233 mg/dL (70-99) 188 mg/dL (70-99) 202 mg/dL (70-99) Laboratory Tests Test 03/29/21 11:16 03/29/21 16:30 03/29/21 20:53 03/30/21 07:59 Glucose (Fingerstick) 276 mg/dL (70-99) 233 mg/dL (70-99) 188 mg/dL (70-99) 202 mg/dL (70-99) Impression . 1. Acute hypoxic respiratory failure secondary to COVID-19 viral pneumonia leading to acute respiratory distress syndrome. 2. Abnormal chest x-ray with extensive bilateral infiltrates consistent with viral pneumonia. 3. Thrombocytopenia, likely caused by viral pneumonia. 4. C-reactive protein 41. Does not meet the criteria for Actemra. 5. Morbid obesity and underlying suspected chronic obstructive pulmonary disease highly contributing to the severity of hypoxia. 6. Lymphedema, component of cor -pulmonale . 7. Hematuria Plan . Updated 03/30 titrate fio2 to keep sat 90% Continue to diurese monitor k, cr Vapotherm Remdesivir lovenox for dvt prophylaxis discussed w rn Updated 03/29 Continue to diurese Vapotherm Remdesivir Anticoagulation per PCP updated 03/28 Continue oxygen per Vapotherm, patient appears comfortable If continues to be tenuous and critically ill Daily Lasix Up to chair Remdesivir Continue anticoagulation for now, if hematuria worsens will discontinue. FRANCISCO EVANS MD Mar 30, 2021 08:32
[2021-03-30 11:00] VITALS: BP 139/90
[2021-03-30] MEDS: LACTOBACILLUS RHAMNOSUS GG 1 CAPSULE. PO SCH ×2 (11:53→21:48)
[2021-03-30] MEDS: ASPIRIN CHEWABLE 81 MG TABLET. PO SCH (11:53)
[2021-03-30] MEDS: metFORMIN 500 MG TABLET PO SCH ×2 (11:53→17:59)
[2021-03-30] MEDS: MULTIVITAMIN with MINERAL TABLET. PO SCH (11:54)
[2021-03-30] MEDS: FUROSEMIDE 40 MG TABLET. PO SCH (11:55)
[2021-03-30] MEDS: methylPREDNISolone SOD SUCC PF 125 MG/2 ML VIAL. IV SCH ×2 (11:56→21:47)
[2021-03-30 15:00] VITALS: BP 148/78
--- NOTE | 2021-03-30 17:01 | PDOC ---
[employer] PROGRESS NOTE Date of Service DOS: DATE: 03/30/21 TIME: 17:01 Chief Complaint Chief Complaint A/P Acute hypoxic respiratory failure secondary to COVID-19 pneumonia COVID-19, respiratory failure. The patient has been admitted. I have consulted Dr. Fenton. I called the pharmacy. We started remdesivir. We will continue the Rocephin and azithromycin he was on. We will continue his steroids. I added in vitamins and minerals, oxygen, codeine cough syrup and aspirin and Lovenox. Trend his labs. Home meds. Deep venous thrombosis prophylaxis. Full code. Prognosis is guarded. History of Present Illness History of Present Illness The patient is a pleasant 60-year-old male who presented to [facility] with respiratory failure. He was placed on COVID-19 protocol. Their doctor called me, I have accepted the patient as a transfer. We are starting him on remdesivir. He is already on broad-spectrum antibiotics. I am also going to consult Pulmonary Medicine and put him on the rest of the COVID protocol. 03/22 Patient evaluated examined at bedside. Continue current Covid treatment. Pulmonary following. Antibiotics remdesivir fever oxygen as needed. Continue current plan. Plan of care discussed with bedside RN. 03/23 Late entry for March 23. Patient evaluated examined at bedside. Still on Covid treatment. Pulmonary following. Wean O2 as tolerated. Plan of care discussed with bedside RN. 03/24 Patient evaluated and examined at bedside. Still remains on Vapotherm no success with weaning. Appreciate pulmonary discussing advance care planning with patient. Continue current Covid treatment. Not a tocilizumab candidate. Plan of care discussed with bedside RN. 03/25 Patient evaluated and examined at bedside. Remains on Vapotherm unsuccessful to any weaning. Hyperkalemia a bit worse today will treat. Continue COVID treatments. Patient insistent on remaining a full code plan of care discussed with bedside RN. 03/26 Patient evaluated examined at bedside. Still on Vapotherm but on 30 L/min 90% F iO2. Wean as tolerated. Potassium okay today. Pulmonary following. Continue current plan otherwise. 03/27 Patient evaluated examined at bedside. Still remains on Vapotherm. Given difficulty with weaning and long duration of admission referral sent for LTAC today per social work. Pulmonary following. 03/28 Patient evaluated examined at bedside. Remains on Vapotherm. LTAC discharge on Thursday looks like 03/29 Patient evaluated examined at bedside. Remains on Vapotherm with success with meeting. Trying Lasix per pulmonary. May be LTAC accepted Thursday. 03/30 Patient evaluated examined at bedside. Still on Vapotherm no success with weaning. Expecting LTAC DC tomorrow Vitals/I&O Vitals/I&O: Vital Signs Date Time Temp Pulse Resp B/P (MAP) Pulse Ox O2 Delivery O2 Flow Rate FiO2 03/30/21 15:44 88 Vapotherm 40.0 03/30/21 15:00 97.6 100 22 148/78 (101) 97.6 I & O 03/29/21 03/29/21 03/30/21 15:00 23:00 07:00 Intake Total 800 ml 450 ml 700 ml Output Total 1000 ml 850 ml Balance -200 ml 450 ml -150 ml Physical Exam General: Alert, Oriented X3, Cooperative Heart: Regular rate, Normal S1, Normal S2 Abdomen: Normal bowel sounds, Soft, No tenderness Extremities: No edema, Normal pulses Skin: No significant lesion Labs Labs: Laboratory Tests Test 03/29/21 20:53 03/30/21 07:59 03/30/21 11:50 Glucose (Fingerstick) 188 mg/dL (70-99) 202 mg/dL (70-99) 241 mg/dL (70-99) Comment Review of Relevant I have reviewed the following items traci (where applicable) has been applied. Justifications for Admission Other Justification LARY GILLIS MD Mar 30, 2021 17:01
[2021-03-30] MEDS: cefTRIAXone IV Push 1 GM VIAL. IVP SCH (18:00)
[2021-03-30 19:25] VITALS: BP 149/74
[2021-03-30] MEDS: STERILE WATER for RESP 2,000 ML BAG. INH PRN (20:48)
[2021-03-30] MEDS: ATORVASTATIN CALCIUM 20 MG TABLET PO SCH (21:48)
[2021-03-30] MEDS: AZITHROMYCIN 500 MG in IV NORMAL SALINE 250ML 250 ML IV SCH (21:50)
[2021-03-30] MEDS: INSULIN GLARGINE SYRINGE. SQ SCH (22:16)
[2021-03-30 23:15] VITALS: BP 137/80
[2021-03-31] VITALS (20 sets, daily range): BP systolic 55–164; BP diastolic 47–90
--- NOTE | 2021-03-31 06:43 | PDOC ---
PULMONARY PROGRESS NOTES DATE: 03/31/21 TIME: 06:42 Subjective disregard this note Vitals Vital Signs Date Time Temp Pulse Resp B/P (MAP) Pulse Ox O2 Delivery O2 Flow Rate FiO2 03/31/21 04:58 90 Vapotherm 40.0 03/31/21 03:59 97.8 95 18 164/70 (101) 97.8 Comments Visual exam done due to COVID-19 viral pneumonia. no distress nc at rr abd obese No use of accessory muscles. No paradoxical breathing. Lower extremities with lymphedema. Labs Laboratory Tests Test 03/29/21 08:06 03/29/21 11:16 03/29/21 16:30 03/29/21 20:53 Glucose (Fingerstick) 244 mg/dL (70-99) 276 mg/dL (70-99) 233 mg/dL (70-99) 188 mg/dL (70-99) Test 03/30/21 07:59 03/30/21 11:50 03/30/21 21:15 Glucose (Fingerstick) 202 mg/dL (70-99) 241 mg/dL (70-99) 199 mg/dL (70-99) Laboratory Tests Test 03/30/21 07:59 03/30/21 11:50 03/30/21 21:15 Glucose (Fingerstick) 202 mg/dL (70-99) 241 mg/dL (70-99) 199 mg/dL (70-99) Impression . 1. Acute hypoxic respiratory failure secondary to COVID-19 viral pneumonia leading to acute respiratory distress syndrome. 2. Abnormal chest x-ray with extensive bilateral infiltrates consistent with viral pneumonia. 3. Thrombocytopenia, likely caused by viral pneumonia. 4. C-reactive protein 41. Does not meet the criteria for Actemra. 5. Morbid obesity and underlying suspected chronic obstructive pulmonary disease highly contributing to the severity of hypoxia. 6. Lymphedema, component of cor -pulmonale . 7. Hematuria Plan . Updated 03/30 titrate fio2 to keep sat 90% start IS Continue to diurese monitor k, cr Vapotherm Remdesivir lovenox for dvt prophylaxis discussed w rn Updated 03/30 titrate fio2 to keep sat 90% Continue to diurese monitor k, cr Vapotherm Remdesivir lovenox for dvt prophylaxis discussed w rn Updated 03/29 Continue to diurese Vapotherm Remdesivir Anticoagulation per PCP updated 03/28 Continue oxygen per Vapotherm, patient appears comfortable If continues to be tenuous and critically ill Daily Lasix Up to chair Remdesivir Continue anticoagulation for now, if hematuria worsens will discontinue. FRANCISCO EVANS MD Mar 31, 2021 06:43
--- NOTE | 2021-03-31 07:41 | PDOC ---
PULMONARY PROGRESS NOTES DATE: 03/31/21 TIME: 07:37 Subjective on vapotherm and nrb desat easily Vitals Vital Signs Date Time Temp Pulse Resp B/P (MAP) Pulse Ox O2 Delivery O2 Flow Rate FiO2 03/31/21 06:46 97.4 87 18 151/71 (97) 90 vapotherm and nrb 40.0 97.4 Comments ros as mentioned as above Visual exam done due to COVID-19 viral pneumonia. morbidly obese no distress nc at rr abd obese No use of accessory muscles. No paradoxical abd motion. Lower extremities with lymphedema. Labs Laboratory Tests Test 03/29/21 08:06 03/29/21 11:16 03/29/21 16:30 03/29/21 20:53 Glucose (Fingerstick) 244 mg/dL (70-99) 276 mg/dL (70-99) 233 mg/dL (70-99) 188 mg/dL (70-99) Test 03/30/21 07:59 03/30/21 11:50 03/30/21 21:15 Glucose (Fingerstick) 202 mg/dL (70-99) 241 mg/dL (70-99) 199 mg/dL (70-99) Laboratory Tests Test 03/30/21 07:59 03/30/21 11:50 03/30/21 21:15 Glucose (Fingerstick) 202 mg/dL (70-99) 241 mg/dL (70-99) 199 mg/dL (70-99) Impression . 1. Acute hypoxic respiratory failure secondary to COVID-19 viral pneumonia leading to acute respiratory distress syndrome. worsening 2. Abnormal chest x-ray with extensive bilateral infiltrates consistent with viral pneumonia. 3. Thrombocytopenia, likely caused by viral pneumonia. 4. C-reactive protein 41. Does not meet the criteria for Actemra. 5. Morbid obesity and underlying suspected chronic obstructive pulmonary disease highly contributing to the severity of hypoxia. 6. Lymphedema, component of cor -pulmonale . 7. Hematuria Plan . Updated 03/31 on vapotherm and nrb desat easily will transfer to icu monitor resp status closely may need bipap intubation will change lasix to 40 mg iv first dose now titrate fio2 to keep sat 90% solumedrol 60 bid IS monitor k, cr Remdesivir lovenox for dvt prophylaxis discussed w rn pt Updated 03/30 titrate fio2 to keep sat 90% Continue to diurese monitor k, cr Vapotherm Remdesivir lovenox for dvt prophylaxis discussed w rn Updated 03/29 Continue to diurese Vapotherm Remdesivir Anticoagulation per PCP updated 03/28 Continue oxygen per Vapotherm, patient appears comfortable If continues to be tenuous and critically ill Daily Lasix Up to chair Remdesivir Continue anticoagulation for now, if hematuria worsens will discontinue. FRANCISCO EVANS MD Mar 31, 2021 07:41
[2021-03-31] MEDS: FUROSEMIDE 40 MG/4 ML VIAL. IVP SCH (07:45)
--- NOTE | 2021-03-31 07:55 | NUR ---
Patient on Vapotherm 40 L at 100% FiO2. During the night patient O2 sats dropped to low 80's. Respiratory notified. Respiratory placed patient on nonrebreather at 15L in addition to Vapotherm. Patient O2 sats 90-93% initially. Patient would take off either the Vapotherm or the nonrebreather and O2 sats would drop to 70's. RN instructed patient on the importance of keeping both the Vapotherm and nonrebreather in place. Dr. Crowell on floor this morning and gave order to transfer patient to ICU. Report called to Diana HOYOS. Patient transferred to ICU at 0800.
[2021-03-31] MEDS: IPRATROPIUM/ALBUTEROL 20/100mcg/INH INHALER. INH SCH ×4 (08:00→20:00)
[2021-03-31] MEDS: LACTOBACILLUS RHAMNOSUS GG 1 CAPSULE. PO SCH ×2 (09:06→20:10)
[2021-03-31] MEDS: MULTIVITAMIN with MINERAL TABLET. PO SCH (09:06)
[2021-03-31] MEDS: metFORMIN 500 MG TABLET PO SCH ×2 (09:06→17:00)
[2021-03-31] MEDS: methylPREDNISolone SOD SUCC PF 125 MG/2 ML VIAL. IV SCH ×2 (09:55→20:11)
[2021-03-31] MEDS: INSULIN LISPRO 300 UNITS/3 ML VIAL. SQ SCH ×6 (09:57→17:00)
[2021-03-31] MEDS ORDERED: ATROPINE 0.5 MG/5 ML DISP.SYRINGE. IV PRN (10:45)
[2021-03-31] MEDS ORDERED: IV NORMAL SALINE 500ML BAG 500 ML IV PRN (10:45)
[2021-03-31] MEDS: DEXMEDETOMIDINE 400 MCG in IV NORMAL SALINE 100ML 96 ML IV PRN ×3 (11:27→22:12)
[2021-03-31] MEDS: ASPIRIN CHEWABLE 81 MG TABLET. PO SCH (13:00)
--- NOTE | 2021-03-31 13:00 | NUR ---
Received patient from 6S at 8am, maintained patient on vapotherm 40lpm, 100% FiO2 + NRM. Saturating well. Patient is quite restless and confused, otherwise A&O x 4. Noted Urine is red in color. Opted to hold lovenox and ASA dose.0900h- joannat still tries to remove his NRM and noticed that he is saturating well still, even without the NRM. Watched out for desaturation. U 1300h- Urine is still bloody, ASA and lovenox- not administered.
[2021-03-31] MEDS: cefTRIAXone IV Push 1 GM VIAL. IVP SCH (16:50)
[2021-03-31] MEDS: NOREPINEPHRINE VIAL 8 MG in IV DEXTROSE 5% 250 ML IV PRN (17:14)
[2021-03-31] MEDS: ATORVASTATIN CALCIUM 20 MG TABLET PO SCH (20:10)
[2021-03-31] MEDS: INSULIN GLARGINE SYRINGE. SQ SCH (20:12)
[2021-03-31] MEDS: AZITHROMYCIN 500 MG in IV NORMAL SALINE 250ML 250 ML IV SCH (20:51)
[2021-04-01] VITALS (31 sets, daily range): BP systolic 69–135; BP diastolic 9–86
[2021-04-01] MEDS: NOREPINEPHRINE VIAL 8 MG in IV DEXTROSE 5% 250 ML IV PRN ×3 (00:50→23:33)
[2021-04-01] MEDS: INSULIN LISPRO 300 UNITS/3 ML VIAL. SQ SCH ×6 (07:30→17:00)
--- NOTE | 2021-04-01 08:27 | PDOC ---
[employer] PROGRESS NOTE Date of Service DOS: DATE: 04/01/21 TIME: 08:19 Chief Complaint Chief Complaint A/P Acute hypoxic respiratory failure secondary to COVID-19 pneumonia COVID-19 Acute encephalopathy - no focal neuro deficits, does have ETOH use disorder history, likely withdrawal Afib - prn metoprolol, lovenox. paroxsymal per history Morbid obesity - counseled DM2 - sliding scale COPD? - per chart review FEN - Regular diet PPX - lovenox FULL CODE Dispo - ICU History of Present Illness History of Present Illness Mr Carter is a 60-year-old male w/ PMHx obesity, COPD, ETOH use disorder, smoker (stopped smoking 1 month prior to admit) who presented to [facility] with respiratory failure, increasing dyspnea and shortness of breath. Chest x-ray demonstrated bilateral infiltrates. He tested positive for COVID pneumonia on 02/28/2021. He has not been vaccinated. He regrets that decision. Was initially requiring 10 liters of oxygen by high flow nasal cannula to maintain sats around 90%. He has morbid obesity with a weight of 385 pounds. He also has paroxysmal atrial fibrillation requiring Cardizem drip. He was placed on COVID-19 protocol. Transferred. Started him on remdesivir. He is already on broad-spectrum antibiotics. Consult Pulmonary Medicine and ICU admit. 03/22:Patient evaluated examined at bedside. Continue current Covid treatment. Pulmonary following. Antibiotics remdesivir fever oxygen as needed. Continue current plan. Plan of care discussed with bedside RN. 03/23: Late entry for March 23. Patient evaluated examined at bedside. Still on Covid treatment. Pulmonary following. Wean O2 as tolerated. Plan of care discussed with bedside RN. 03/24: Patient evaluated and examined at bedside. Still remains on Vapotherm no success with weaning. Appreciate pulmonary discussing advance care planning with patient. Continue current Covid treatment. Not a tocilizumab candidate. Plan of care discussed with bedside RN. 03/25: Patient evaluated and examined at bedside. Remains on Vapotherm unsuccessful to any weaning. Hyperkalemia a bit worse today will treat. Continue COVID treatments. Patient insistent on remaining a full code plan of care discussed with bedside RN. 03/26: Patient evaluated examined at bedside. Still on Vapotherm but on 30 L/min 90% FiO2. Wean as tolerated. Potassium okay today. Pulmonary following. Continue current plan otherwise. 03/27: Patient evaluated examined at bedside. Still remains on Vapotherm. Given difficulty with weaning and long duration of admission referral sent for LTAC today per social work. Pulmonary following. 03/28: Patient evaluated examined at bedside. Remains on Vapotherm. [facility] Thursday looks like 03/29: Patient evaluated examined at bedside. Remains on Vapotherm with success with meeting. Trying Lasix per pulmonary. May be LTAC accepted Thursday. 03/30: Patient evaluated examined at bedside. Still on Vapotherm no success with weaning. Expecting LTAC DC tomorrow 04/01: Bedside in ICU. Vapotherm 35 L/min 100% FiO2 with O2 saturations 92%. Afib on telemetry. Confused, but less agitated. cc time 31 min Vitals/I&O Vitals/I&O: Vital Signs Date Time Temp Pulse Resp B/P (MAP) Pulse Ox O2 Delivery O2 Flow Rate FiO2 04/01/21 07:59 92 Vapotherm 40.0 04/01/21 07:22 78 19 123/82 04/01/21 04:00 96.4 96.4 I & O 03/31/21 03/31/21 04/01/21 15:00 23:00 07:00 Intake Total 350 ml 304.67 ml 325.75 ml Output Total 275 ml 280 ml 183 ml Balance 75 ml 24.67 ml 142.75 ml Physical Exam General: Alert, Cooperative Heart: Regular rate, Normal S1, Normal S2 Abdomen: Normal bowel sounds, Soft, No tenderness Extremities: No edema, Normal pulses Skin: No significant lesion Labs Labs: Laboratory Tests Test 03/31/21 09:11 03/31/21 13:01 03/31/21 16:57 Glucose (Fingerstick) 210 mg/dL (70-99) 232 mg/dL (70-99) 184 mg/dL (70-99) Comment Review of Relevant I have reviewed the following items traci (where applicable) has been applied. Medications: Current Medications Medications (Trade) Dose Ordered Sig/Holly Route PRN Reason Start Time Stop Time Status Last Admin Dose Admin Furosemide (Lasix) 40 mg DAILY IVP 03/31/21 09:00 03/31/21 07:45 Dexmedetomidine HCl 400 mcg/ Sodium Chloride 100 ml @ 9.3 mls/hr CONT PRN IV PER PROTOCOL 03/31/21 10:45 03/31/21 22:12 Norepinephrine Bitartrate 8 mg/ Dextrose 258 ml @ 36.107 mls/ hr CONT PRN IV PER PROTOCOL 03/31/21 17:15 04/01/21 00:50 Justifications for Admission Other Justification LARY PARKER MD Apr 01, 2021 08:27
[2021-04-01] MEDS ORDERED: guaiFENesin DM 200MG/20MG 10 ML SYRUP PO PRN (08:30)
[2021-04-01] MEDS: FUROSEMIDE 40 MG/4 ML VIAL. IVP SCH (08:32)
[2021-04-01] MEDS: LACTOBACILLUS RHAMNOSUS GG 1 CAPSULE. PO SCH ×2 (08:32→20:42)
[2021-04-01] MEDS: MULTIVITAMIN with MINERAL TABLET. PO SCH (08:32)
[2021-04-01] MEDS: ASPIRIN CHEWABLE 81 MG TABLET. PO SCH (08:33)
[2021-04-01] MEDS: methylPREDNISolone SOD SUCC PF 125 MG/2 ML VIAL. IV SCH ×2 (08:33→20:42)
[2021-04-01] MEDS: metFORMIN 500 MG TABLET PO SCH ×2 (08:33→17:00)
[2021-04-01 09:23] LABS: ALBUMIN 1.9 g/dL (3.4-5.0); ALBUMIN/GLOBULIN RATIO 0.5 (1.0-1.7); CALCIUM 8.7 mg/dL (8.5-10.1); CREATININE 2.6 mg/dL (0.7-1.3); GFR 25.1; TOTAL BILIRUBIN 1.4 mg/dL (0.2-1.0); TOTAL PROTEIN 5.4 g/dL (6.4-8.2)
[2021-04-01 09:27] LABS: POTASSIUM 6.7 mmol/L (3.5-5.1)
[2021-04-01] MEDS ORDERED: DEXTROSE 50% 25 GM / 50ML DISP.SYRIN. IV ONE (09:30)
[2021-04-01] MEDS ORDERED: SODIUM POLYSTYRENE SULFON/SORB 15 GM/60 ML ORAL.SUSP. PO ONE (09:30)
[2021-04-01] MEDS ORDERED: SODIUM BICARB ADULT 8.4% 50 MEQ/50 ML DISP.SYRIN. IV ONE (09:30)
[2021-04-01] MEDS ORDERED: INSULIN REGULAR 100 UNIT/ML 3ML VIAL. IV ONE (09:30)
[2021-04-01 09:40] LABS: BASO # 0.1 x10^3/uL (0.0-0.2); BASO % 1 % (0-3); EOS % 0 % (0-3); HEMATOCRIT 42.6 % (39.0-53.0); HEMOGLOBIN 13.7 g/dL (13.0-17.5); LYMPH # 0.3 x10^3/uL (1.0-4.8); LYMPH % 2 % (24-48); MEAN CORPUSCULAR HEMOGLOBIN 30 pg (25-35); MEAN CORPUSCULAR HGB CONC 32 g/dL (31-37); MEAN CORPUSCULAR VOLUME 94 fL (79-100); MONO # 0.9 x10^3/uL (0.0-1.1); MONO % 5 % (0-9); NEUT # 19.7 x10^3/uL (1.8-7.7); NEUT % 93 % (31-73); PLATELET COUNT 241 x10^3/uL (140-400); RED BLOOD COUNT 4.55 x10^6/uL (4.30-5.70); RED CELL DISTRIBUTION WIDTH 15.3 % (11.5-14.5); WHITE BLOOD COUNT 21.1 x10^3/uL (4.0-11.0)
[2021-04-01] MEDS ORDERED: LIDOCAINE WITH 8.4% SOD BICARB 3 ML DISP.SYRIN. ONE (10:21)
[2021-04-01] MEDS ORDERED: HEPARIN for IV BOLUS 10,000 UNIT/10 ML VIAL. ONE (10:22)
[2021-04-01 10:32] LABS: MAGNESIUM 2.8 mg/dL (1.8-2.4); PHOSPHORUS 5.7 mg/dL (2.6-4.7)
--- NOTE | 2021-04-01 10:48 | PDOC ---
PULMONARY PROGRESS NOTES DATE: 04/01/21 TIME: 10:44 Subjective Remains on 100% FiO2 via Vapotherm. Vitals Vital Signs Date Time Temp Pulse Resp B/P (MAP) Pulse Ox O2 Delivery O2 Flow Rate FiO2 04/01/21 10:03 78 13 96/75 94 Vapotherm 40.0 04/01/21 08:00 97.7 97.7 Comments ros as mentioned as above Visual exam done due to COVID-19 viral pneumonia. morbidly obese no distress nc at rr abd obese No use of accessory muscles. No paradoxical abd motion. Lower extremities with lymphedema. Labs Laboratory Tests Test 03/30/21 11:50 03/30/21 21:15 03/31/21 09:11 03/31/21 13:01 Glucose (Fingerstick) 241 mg/dL (70-99) 199 mg/dL (70-99) 210 mg/dL (70-99) 232 mg/dL (70-99) Test 03/31/21 16:57 04/01/21 09:00 Glucose (Fingerstick) 184 mg/dL (70-99) White Blood Count 21.1 x10^3/uL (4.0-11.0) Red Blood Count 4.55 x10^6/uL (4.30-5.70) Hemoglobin 13.7 g/dL (13.0-17.5) Hematocrit 42.6 % (39.0-53.0) Mean Corpuscular Volume 94 fL (79-100) Mean Corpuscular Hemoglobin 30 pg (25-35) Mean Corpuscular Hemoglobin Concent 32 g/dL (31-37) Red Cell Distribution Width 15.3 % (11.5-14.5) Platelet Count 241 x10^3/uL (140-400) Neutrophils (%) (Auto) 93 % (31-73) Lymphocytes (%) (Auto) 2 % (24-48) Monocytes (%) (Auto) 5 % (0-9) Eosinophils (%) (Auto) 0 % (0-3) Basophils (%) (Auto) 1 % (0-3) Neutrophils # (Auto) 19.7 x10^3/uL (1.8-7.7) Lymphocytes # (Auto) 0.3 x10^3/uL (1.0-4.8) Monocytes # (Auto) 0.9 x10^3/uL (0.0-1.1) Eosinophils # (Auto) 0.0 x10^3/uL (0.0-0.7) Basophils # (Auto) 0.1 x10^3/uL (0.0-0.2) Sodium Level 126 mmol/L (136-145) Potassium Level 6.7 mmol/L (3.5-5.1) Chloride Level 92 mmol/L (98-107) Carbon Dioxide Level 21 mmol/L (21-32) Anion Gap 13 (6-14) Blood Urea Nitrogen 113 mg/dL (8-26) Creatinine 2.6 mg/dL (0.7-1.3) Estimated GFR (Cockcroft-Gault) 25.1 BUN/Creatinine Ratio 43 (6-20) Glucose Level 205 mg/dL (70-99) Calcium Level 8.7 mg/dL (8.5-10.1) Phosphorus Level 5.7 mg/dL (2.6-4.7) Magnesium Level 2.8 mg/dL (1.8-2.4) Total Bilirubin 1.4 mg/dL (0.2-1.0) Aspartate Amino Transf (AST/SGOT) 60 U/L (15-37) Alanine Aminotransferase (ALT/SGPT) 100 U/L (16-63) Alkaline Phosphatase 117 U/L (46-116) Total Protein 5.4 g/dL (6.4-8.2) Albumin 1.9 g/dL (3.4-5.0) Albumin/Globulin Ratio 0.5 (1.0-1.7) Laboratory Tests Test 03/31/21 13:01 03/31/21 16:57 04/01/21 09:00 Glucose (Fingerstick) 232 mg/dL (70-99) 184 mg/dL (70-99) White Blood Count 21.1 x10^3/uL (4.0-11.0) Red Blood Count 4.55 x10^6/uL (4.30-5.70) Hemoglobin 13.7 g/dL (13.0-17.5) Hematocrit 42.6 % (39.0-53.0) Mean Corpuscular Volume 94 fL (79-100) Mean Corpuscular Hemoglobin 30 pg (25-35) Mean Corpuscular Hemoglobin Concent 32 g/dL (31-37) Red Cell Distribution Width 15.3 % (11.5-14.5) Platelet Count 241 x10^3/uL (140-400) Neutrophils (%) (Auto) 93 % (31-73) Lymphocytes (%) (Auto) 2 % (24-48) Monocytes (%) (Auto) 5 % (0-9) Eosinophils (%) (Auto) 0 % (0-3) Basophils (%) (Auto) 1 % (0-3) Neutrophils # (Auto) 19.7 x10^3/uL (1.8-7.7) Lymphocytes # (Auto) 0.3 x10^3/uL (1.0-4.8) Monocytes # (Auto) 0.9 x10^3/uL (0.0-1.1) Eosinophils # (Auto) 0.0 x10^3/uL (0.0-0.7) Basophils # (Auto) 0.1 x10^3/uL (0.0-0.2) Sodium Level 126 mmol/L (136-145) Potassium Level 6.7 mmol/L (3.5-5.1) Chloride Level 92 mmol/L (98-107) Carbon Dioxide Level 21 mmol/L (21-32) Anion Gap 13 (6-14) Blood Urea Nitrogen 113 mg/dL (8-26) Creatinine 2.6 mg/dL (0.7-1.3) Estimated GFR (Cockcroft-Gault) 25.1 BUN/Creatinine Ratio 43 (6-20) Glucose Level 205 mg/dL (70-99) Calcium Level 8.7 mg/dL (8.5-10.1) Phosphorus Level 5.7 mg/dL (2.6-4.7) Magnesium Level 2.8 mg/dL (1.8-2.4) Total Bilirubin 1.4 mg/dL (0.2-1.0) Aspartate Amino Transf (AST/SGOT) 60 U/L (15-37) Alanine Aminotransferase (ALT/SGPT) 100 U/L (16-63) Alkaline Phosphatase 117 U/L (46-116) Total Protein 5.4 g/dL (6.4-8.2) Albumin 1.9 g/dL (3.4-5.0) Albumin/Globulin Ratio 0.5 (1.0-1.7) Impression . 1. Acute hypoxic respiratory failure secondary to COVID-19 viral pneumonia leading to acute respiratory distress syndrome. worsening. On 100% FiO2 via Vapotherm. 2. Abnormal chest x-ray with extensive bilateral infiltrates consistent with viral pneumonia. 3. Thrombocytopenia, likely caused by viral pneumonia. 4. C-reactive protein 41. Does not meet the criteria for Actemra. 5. Morbid obesity and underlying suspected chronic obstructive pulmonary disease highly contributing to the severity of hypoxia. 6. Lymphedema, component of cor -pulmonale . 7. Hematuria 8. Hyperkalemia and KEKE. Plan . Updated 04/01 on vapotherm and nrb desat easily. Will use as needed BiPAP. Monitor resp status closely may need intubation. Patient is a high risk for respiratory failure secondary to marked obesity and severity of hypoxia. Renal recommendation regarding hemodialysis. To be initiated today. titrate fio2 to keep sat 90% solumedrol 60 bid IS monitor k, cr Remdesivir lovenox for dvt prophylaxis discussed w rn pt Updated 03/31 on vapotherm and nrb desat easily will transfer to icu monitor resp status closely may need bipap intubation will change lasix to 40 mg iv first dose now titrate fio2 to keep sat 90% solumedrol 60 bid IS monitor k, cr Remdesivir lovenox for dvt prophylaxis discussed w rn pt Updated 03/30 titrate fio2 to keep sat 90% Continue to diurese monitor k, cr Vapotherm Remdesivir lovenox for dvt prophylaxis discussed w rn Updated 03/29 Continue to diurese Vapotherm Remdesivir Anticoagulation per PCP updated 03/28 Continue oxygen per Vapotherm, patient appears comfortable If continues to be tenuous and critically ill Daily Lasix Up to chair Remdesivir Continue anticoagulation for now, if hematuria worsens will discontinue. AMINATA MORA MD Apr 01, 2021 10:48
[2021-04-01] MEDS: DEXMEDETOMIDINE 400 MCG in IV NORMAL SALINE 100ML 96 ML IV PRN ×3 (11:02→22:05)
[2021-04-01 11:45] LABS: BASE EXCESS ABG -5 mmol/L (-3-3); HCO3 ABG 18 mmol/L (21-28); PCO2 ABG 29 mmHg (35-46); PO2 ABG 55 mmHg (65-108); SAT O2 ABG 85 % (92-99)
[2021-04-01] MEDS ORDERED: LIDOCAINE WITH 8.4% SOD BICARB 3 ML DISP.SYRIN. INJ ONE (11:45)
[2021-04-01 12:06] LABS: % BANDS 2 % (0-9); % LYMPHS 4 % (24-48); % MONOS 2 % (0-10); % SEGS 92 % (35-66); NUCLEATED RBC 1; PLT ESTIMATE ADEQUATE (ADEQUATE)
[2021-04-01] MEDS: IPRATROPIUM/ALBUTEROL 20/100mcg/INH INHALER. INH SCH ×4 (12:23→20:42)
--- NOTE | 2021-04-01 12:32 | RAD ---
EXAM: XR CHEST 1V 04/01/2021 11:58 AM CLINICAL INDICATION: Dialysis catheter placement COMPARISON: Chest radiograph 03/28/2021 TECHNIQUE: AP supine view the chest FINDINGS: There is new left internal jugular central venous catheter with tip projecting over the arita perior cavoatrial junction. Cardiomegaly is unchanged. There are extensive bilateral airspace opaciti es, increased in the right upper lobe. No pleural effusion. No obvious pneumothorax, evaluation limit ed by supine position. IMPRESSION: 1. New left internal jugular central venous catheter with tip over the superior cavoatrial junction. 2. No obvious pneumothorax, evaluation limited by supine position. 3. Extensive bilateral airspace opacities, increased on the right. Electronically signed by: Yesi Ram MD (04/01/2021 12:29 PM) [id number]
[2021-04-01] MEDS: TPN PER PHARMACY MC PRN (13:18)
--- NOTE | 2021-04-01 13:24 | NUR ---
Pharmacy TPN Dosing Note S: POLY GONZALEZ is a 60 year old M Currently receiving Central Continuous TPN started 04/01/21 B:Pertinent PMH: Need for BiPAP/easily desaturates and unable to eat Height: 6 feet, 1 inches Weight: 186.6 kg Current diet: ADA LABS: Sodium: 126 Potassium: 6.7 Chloride: 92 Calcium: 8.7 Corrected Calcium: 10.38 Magnesium: 2.8 CO2: 21 SCr: 2.6 Glucose: 198 Albumin: 1.9 AST: 60 ALT: 100 TPN FORMULA: TPN TYPE: Central Continuous AMINO ACIDS: 60 gm DEXTROSE: 195 gm LIPIDS: 20 gm SODIUM CHLORIDE: 90 mEq MULTIPLE VITAMIN: 10 ml TRACE ELEMENTS: 1 ml(s) TPN PLAN: House formula TPN without electrolytes and min volume due to labs R: Begin TPN Will monitor electrolytes, glucose, and tolerance to TPN. Vijaya Sainz Jerson, 04/01/21 [id number]
--- NOTE | 2021-04-01 13:30 | RAD ---
Procedure: Placement of a left internal jugular central line bedside with ultrasound guidance. INDICATION: Covid 19 pneumonia. Patient critically ill. Sterility: All elements of maximal sterile barrier technique including the use of a cap, mask, steril e gown, sterile gloves, large sterile sheet, appropriate hand hygiene, and 2% chlorhexidine for cutan eous antisepsis (or acceptable alternative antiseptic per current guidelines) were followed for this procedure. Consent: The procedure was explained in its entirety to the patient or the patients designated repres entative by a member of the treatment team, including a discussion of the risks, benefits and commonl y accepted alternatives to the procedure, as well as the expected consequences of no therapy whatsoev er. Discussion of the risks included, but was not limited to, those that are most frequent and thos e that are rare but possibly severe or life-threatening, as well as the possibility of unforeseen com plications. Technique and Findings: Following informed consent, the patient was prepped and draped in the usual s terile fashion. Ultrasound interrogation of the left neck revealed patency and compressibility of th e left internal jugular vein. A 21-gauge micropuncture was then used to gain access to this vein und er ultrasound guidance. A hard copy ultrasound image was recorded. A guidewire was advanced centrall y over which, following dilatation, a temporary dialysis catheter was placed. The new catheter was found to flush and aspirate normally. The catheter was secured in place. Sterile dressings were appli ed. No immediate complications were identified. IMPRESSION: Placement of a left internal jugular temporary hemodialysis catheter Electronically signed by: Parish Estrada MD (04/01/2021 1:28 PM) [id number]
--- NOTE | 2021-04-01 16:09 | PDOC2 ---
CONSULT Date of Consult Date of Consult DATE: 04/01/21 TIME: 15:57 Reason for Consult Reason for Consult: KEKE Referring Physician Referring Physician: GARLAND Identification/Chief Complaint Chief Complaint SOB Source Source: Chart review History of Present Illness Reason for Visit: THIS IS A 60 YR OLD WITH SOB. ADMITTED WITH RESP DISTRESS AND NOW DX WITH COVID 19 PNEUMONIA. HAS LEUCOCYTOSIS AND SEPSIS. RENAL CONSULT DUE TO ABNORMALITIES IN RENAL FUNCTION. HE HAS MET ACIDOSIS, HYPERKALEMIA, HYPONATREMIA AND KEKE WITH CR FO 2.6. NO HX OF CKD NOTED. NO NEPHROTOXINS NOTED. CURRENTLY NEEDING 100% FIO2 WITH VAPOTHERM. NO OTHER HX NOTED ON AVAILABLE CHARTS. Past Medical History Past Medical History OBESITY Cardiovascular: HTN Endocrine: Diabetes Family History Family History UNKNOWN Social History <1 pack per day ALCOHOL: none Drugs: None Lives: with Family Current Medications Current Medications Current Medications Remdesivir 200 mg/ Sodium Chloride 210 ml @ 210 mls/hr 1X ONCE IV Last administered on 03/21/21at 17:27; Start 03/21/21 at 17:00; Stop 03/21/21 at 17:59; Status DC Remdesivir 100 mg/ Sodium Chloride 230 ml @ 460 mls/hr Q24H IV Last administered on 03/25/21at 16:53; Start 03/22/21 at 17:00; Stop 03/25/21 at 17:29; Status DC Atorvastatin Calcium (Lipitor) 20 mg HS PO Last administered on 03/31/21at 20:10; Start 03/21/21 at 21:00 Azithromycin 250 ml @ 250 mls/hr DAILY IV ; Start 03/22/21 at 09:00; Status UNV Furosemide (Lasix) 40 mg DAILY PO Last administered on 03/30/21at 11:55; Start 03/22/21 at 09:00; Stop 03/31/21 at 07:11; Status DC Insulin Human Lispro (HumaLOG) 0-9 UNITS TIDWMEALS SQ Last administered on 04/01/21at 09:59; Start 03/21/21 at 17:00 Dextrose (Dextrose 50%-Water Syringe) 12.5 gm PRN Q15MIN PRN IV SEE COMMENTS; Start 03/21/21 at 15:45 Albuterol/ Ipratropium (Duoneb) 3 ml RTQID NEB ; Start 03/21/21 at 16:00; Status Cancel Lactobacillus Rhamnosus (Culturelle) 1 cap BID PO Last administered on 04/01/21at 08:32; Start 03/21/21 at 21:00 Ceftriaxone Sodium (Rocephin) 1 gm Q24H IVP Last administered on 03/31/21at 16:50; Start 03/21/21 at 17:00 Diltiazem HCl (Cardizem 24hr Cd) 300 mg DAILY PO Last administered on 04/01/21at 08:35; Start 03/22/21 at 09:00 Metformin HCl (Glucophage) 1,000 mg BIDWMEALS PO Last administered on 04/01/21at 08:33; Start 03/21/21 at 17:00 Methylprednisolone Sodium Succinate (SOLU-Medrol 125MG VIAL) 60 mg Q8HRS IV Last administered on 03/25/21at 06:03; Start 03/21/21 at 22:00; Stop 03/25/21 at 10:10; Status DC Azithromycin 250 mg/Sodium Chloride 250 ml @ 250 mls/hr Q24H IV ; Start 03/21/21 at 17:00; Status Cancel Azithromycin 500 mg/Sodium Chloride 250 ml @ 250 mls/hr Q24H IV Last administered on 03/21/21at 21:03; Start 03/21/21 at 17:00; Stop 03/22/21 at 17:12; Status DC Multivitamins (Thera M Plus) 1 tab DAILY PO Last administered on 04/01/21at 08:32; Start 03/22/21 at 09:00 Aspirin (Aspirin Chewable) 81 mg DAILYWBKFT PO Last administered on 04/01/21at 08:33; Start 03/22/21 at 08:00 Guaifenesin/ Codeine Phosphate (Robitussin Ac) 5 ml PRN Q6HRS PRN PO COUGH; Start 03/21/21 at 16:30; Stop 04/01/21 at 08:25; Status DC Enoxaparin Sodium (Lovenox 40mg Syringe) 40 mg Q24H SQ Last administered on 03/24/21at 16:22; Start 03/21/21 at 17:00; Stop 03/25/21 at 15:14; Status DC Albuterol/ Ipratropium (Combivent Respimat 20-100 Mcg) 1 puff RTQID INH Last administered on 04/01/21at 12:25; Start 03/21/21 at 20:00 Sterile Water (WATER for RESP) 2,000 ml CONT PRN INH VIA VAPOTHERM DEVICE; Start 03/22/21 at 09:30; Stop 03/24/21 at 15:59; Status DC Insulin Glargine (Lantus Syringe) 10 unit QHS SQ Last administered on 03/24/21at 21:20; Start 03/22/21 at 21:00; Stop 03/25/21 at 11:19; Status DC Insulin Human Lispro (HumaLOG) 7 units TIDAC SQ Last administered on 03/31/21at 13:03; Start 03/22/21 at 16:30 Azithromycin 500 mg/Sodium Chloride 250 ml @ 250 mls/hr Q24H IV Last administered on 03/31/21at 20:51; Start 03/22/21 at 21:00; Stop 04/01/21 at 09:31; Status DC Sterile Water (WATER for RESP) 1,000 ml CONT PRN INH VIA VAPOTHERM DEVICE Last administered on 03/29/21at 12:29; Start 03/24/21 at 16:00; Stop 03/29/21 at 12:31; Status DC Methylprednisolone Sodium Succinate (SOLU-Medrol 125MG VIAL) 60 mg BID IV Last administered on 04/01/21at 08:33; Start 03/25/21 at 21:00 Insulin Glargine (Lantus Syringe) 15 unit QHS SQ Last administered on 03/29/21at 22:58; Start 03/25/21 at 21:00; Stop 03/30/21 at 17:01; Status DC Furosemide (Lasix) 40 mg 1X ONCE IVP Last administered on 03/25/21at 12:15; Start 03/25/21 at 12:00; Stop 03/25/21 at 12:01; Status DC Calcium Gluconate (Calcium Gluconate) 1,000 mg 1X ONCE IVP ; Start 03/25/21 at 11:45; Stop 03/25/21 at 11:38; Status DC Dextrose (Dextrose 50%-Water Syringe) 25 gm 1X ONCE IV Last administered on 03/25/21at 13:23; Start 03/25/21 at 11:45; Stop 03/25/21 at 11:46; Status DC Insulin Human Regular (HumuLIN R VIAL) 10 unit 1X ONCE IV Last administered on 03/25/21at 13:25; Start 03/25/21 at 11:45; Stop 03/25/21 at 11:46; Status DC Sodium Polystyrene Sulfonate (Kayexalate) 30 gm 1X ONCE PO Last administered on 03/25/21at 13:24; Start 03/25/21 at 11:45; Stop 03/25/21 at 11:46; Status DC Calcium Gluconate (Calcium Gluconate) 1,000 mg 1X ONCE IVP Last administered on 03/25/21at 13:26; Start 03/25/21 at 11:45; Stop 03/25/21 at 11:46; Status DC Enoxaparin Sodium (Lovenox 60mg Syringe) 60 mg Q12H SQ Last administered on 03/28/21at 17:33; Start 03/25/21 at 17:00; Stop 03/28/21 at 21:22; Status DC Enoxaparin Sodium (Lovenox 60mg Syringe) 60 mg Q12HR SQ Last administered on 04/01/21at 08:34; Start 03/29/21 at 09:00 Sterile Water (WATER for RESP) 2,000 ml CONT PRN INH VIA VAPOTHERM DEVICE Last administered on 03/30/21at 20:48; Start 03/29/21 at 12:45 Insulin Glargine (Lantus Syringe) 20 unit QHS SQ Last administered on 03/31/21at 20:12; Start 03/30/21 at 21:00 Furosemide (Lasix) 40 mg DAILY IVP Last administered on 04/01/21at 08:32; Start 03/31/21 at 09:00 Dexmedetomidine HCl 400 mcg/ Sodium Chloride 100 ml @ 9.3 mls/hr CONT PRN IV PER PROTOCOL Last administered on 04/01/21at 11:02; Start 03/31/21 at 10:45 Sodium Chloride 500 ml @ 500 mls/hr 1X PRN PRN IV SEE COMMENTS; Start 03/31/21 at 10:45 Atropine Sulfate (ATROPINE 0.5mg SYRINGE) 0.5 mg PRN Q5MIN PRN IV SEE COMMENTS; Start 03/31/21 at 10:45 Norepinephrine Bitartrate 8 mg/ Dextrose 258 ml @ 36.107 mls/ hr CONT PRN IV PER PROTOCOL Last administered on 04/01/21at 15:45; Start 03/31/21 at 17:15 Guaifenesin (Robitussin Dm) 10 ml PRN Q6HRS PRN PO COUGH; Start 04/01/21 at 08:30 Info (Tpn Per Pharmacy) 1 each PRN DAILY PRN MC SEE COMMENTS Last administered on 04/01/21at 13:18; Start 04/01/21 at 09:00 Sodium Bicarbonate (Sodium Bicarb Adult 8.4% Syr) 50 meq 1X ONCE IV Last administered on 04/01/21at 09:55; Start 04/01/21 at 09:30; Stop 04/01/21 at 09:32; Status DC Dextrose (Dextrose 50%-Water Syringe) 25 gm 1X ONCE IV Last administered on 1 06/02/20at 09:55; Start 04/01/21 at 09:30; Stop 04/01/21 at 09:32; Status DC Insulin Human Regular (HumuLIN R VIAL) 10 unit 1X ONCE IV Last administered on 04/01/21at 09:56; Start 04/01/21 at 09:30; Stop 04/01/21 at 09:37; Status DC Sodium Polystyrene Sulfonate (Kayexalate) 30 gm 1X ONCE PO Last administered on 04/01/21at 09:56; Start 04/01/21 at 09:30; Stop 04/01/21 at 09:32; Status DC Lidocaine HCl (Buffered Lidocaine 1%) 3 ml STK-MED ONCE .ROUTE ; Start 04/01/21 at 10:21; Stop 04/01/21 at 10:22; Status DC Heparin Sodium (Porcine) (Heparin Sodium) 10,000 unit STK-MED ONCE .ROUTE ; Start 04/01/21 at 10:22; Stop 04/01/21 at 10:22; Status DC Lidocaine HCl (Buffered Lidocaine 1%) 3 ml 1X ONCE INJ Last administered on 04/01/21at 11:49; Start 04/01/21 at 11:45; Stop 04/01/21 at 11:50; Status DC Heparin Sodium (Porcine) (Heparin Sodium) 2,500 unit 1X ONCE INT CAT Last administered on 04/01/21at 11:50; Start 04/01/21 at 11:45; Stop 04/01/21 at 11:50; Status DC Sodium Chloride 90 meq/ Multivitamins 10 ml/Zinc/Copper/ Manganese/ Selenium 1 ml/ Total Parenteral Nutrition/Amino Acids/Dextrose/ Fat Emulsion Intravenous 1,320 ml @ 55 mls/hr TPN CONT IV ; Start 04/01/21 at 22:00; Stop 04/02/21 at 21:59 Allergies Allergies: Coded Allergies: No Known Drug Allergies (Unverified , 03/21/21) ROS Review of System UNABLE TO OBTAIN Physical Exam General: severe distress HEENT: Atraumatic, PERRLA, Other (DRY MUCOSA) Lungs: Other (COARSE BILATERALLY) Heart: Regular rate Abdomen: Normal bowel sounds, Soft, No tenderness Skin: No rashes Neuro: Other (LETHARGIC) Psych/Mental Status: Other (CONFUSED) MUSCULOSKELETAL: No joint tenderness, No deformity, Other (3+ LE EDEMA) Vitals VITALS Vital Signs Date Time Temp Pulse Resp B/P (MAP) Pulse Ox O2 Delivery O2 Flow Rate FiO2 04/01/21 15:41 92 Vapotherm 40.0 04/01/21 15:10 96 18 103/74 04/01/21 12:34 97.3 97.3 Labs Labs Laboratory Tests Test 03/30/21 21:15 03/31/21 09:11 03/31/21 13:01 03/31/21 16:57 Glucose (Fingerstick) 199 mg/dL (70-99) 210 mg/dL (70-99) 232 mg/dL (70-99) 184 mg/dL (70-99) Test 04/01/21 09:00 04/01/21 11:38 04/01/21 12:24 White Blood Count 21.1 x10^3/uL (4.0-11.0) Red Blood Count 4.55 x10^6/uL (4.30-5.70) Hemoglobin 13.7 g/dL (13.0-17.5) Hematocrit 42.6 % (39.0-53.0) Mean Corpuscular Volume 94 fL (79-100) Mean Corpuscular Hemoglobin 30 pg (25-35) Mean Corpuscular Hemoglobin Concent 32 g/dL (31-37) Red Cell Distribution Width 15.3 % (11.5-14.5) Platelet Count 241 x10^3/uL (140-400) Neutrophils (%) (Auto) 93 % (31-73) Lymphocytes (%) (Auto) 2 % (24-48) Monocytes (%) (Auto) 5 % (0-9) Eosinophils (%) (Auto) 0 % (0-3) Basophils (%) (Auto) 1 % (0-3) Neutrophils # (Auto) 19.7 x10^3/uL (1.8-7.7) Lymphocytes # (Auto) 0.3 x10^3/uL (1.0-4.8) Monocytes # (Auto) 0.9 x10^3/uL (0.0-1.1) Eosinophils # (Auto) 0.0 x10^3/uL (0.0-0.7) Basophils # (Auto) 0.1 x10^3/uL (0.0-0.2) Segmented Neutrophils % 92 % (35-66) Band Neutrophils % 2 % (0-9) Lymphocytes % 4 % (24-48) Monocytes % 2 % (0-10) Nucleated Red Blood Cells 1 Platelet Estimate Adequate (ADEQUATE) Sodium Level 126 mmol/L (136-145) Potassium Level 6.7 mmol/L (3.5-5.1) Chloride Level 92 mmol/L (98-107) Carbon Dioxide Level 21 mmol/L (21-32) Anion Gap 13 (6-14) Blood Urea Nitrogen 113 mg/dL (8-26) Creatinine 2.6 mg/dL (0.7-1.3) Estimated GFR (Cockcroft-Gault) 25.1 BUN/Creatinine Ratio 43 (6-20) Glucose Level 205 mg/dL (70-99) Calcium Level 8.7 mg/dL (8.5-10.1) Phosphorus Level 5.7 mg/dL (2.6-4.7) Magnesium Level 2.8 mg/dL (1.8-2.4) Total Bilirubin 1.4 mg/dL (0.2-1.0) Aspartate Amino Transf (AST/SGOT) 60 U/L (15-37) Alanine Aminotransferase (ALT/SGPT) 100 U/L (16-63) Alkaline Phosphatase 117 U/L (46-116) Total Protein 5.4 g/dL (6.4-8.2) Albumin 1.9 g/dL (3.4-5.0) Albumin/Globulin Ratio 0.5 (1.0-1.7) O2 Saturation 85 % (92-99) Arterial Blood pH 7.41 (7.35-7.45) Arterial Blood pCO2 at Patient Temp 29 mmHg (35-46) Arterial Blood pO2 at Patient Temp 55 mmHg (65-108) Arterial Blood HCO3 18 mmol/L (21-28) Arterial Blood Base Excess -5 mmol/L (-3-3) FiO2 100% vapotherm Glucose (Fingerstick) 198 mg/dL (70-99) Laboratory Tests Test 03/31/21 16:57 04/01/21 09:00 04/01/21 11:38 04/01/21 12:24 Glucose (Fingerstick) 184 mg/dL (70-99) 198 mg/dL (70-99) White Blood Count 21.1 x10^3/uL (4.0-11.0) Red Blood Count 4.55 x10^6/uL (4.30-5.70) Hemoglobin 13.7 g/dL (13.0-17.5) Hematocrit 42.6 % (39.0-53.0) Mean Corpuscular Volume 94 fL (79-100) Mean Corpuscular Hemoglobin 30 pg (25-35) Mean Corpuscular Hemoglobin Concent 32 g/dL (31-37) Red Cell Distribution Width 15.3 % (11.5-14.5) Platelet Count 241 x10^3/uL (140-400) Neutrophils (%) (Auto) 93 % (31-73) Lymphocytes (%) (Auto) 2 % (24-48) Monocytes (%) (Auto) 5 % (0-9) Eosinophils (%) (Auto) 0 % (0-3) Basophils (%) (Auto) 1 % (0-3) Neutrophils # (Auto) 19.7 x10^3/uL (1.8-7.7) Lymphocytes # (Auto) 0.3 x10^3/uL (1.0-4.8) Monocytes # (Auto) 0.9 x10^3/uL (0.0-1.1) Eosinophils # (Auto) 0.0 x10^3/uL (0.0-0.7) Basophils # (Auto) 0.1 x10^3/uL (0.0-0.2) Segmented Neutrophils % 92 % (35-66) Band Neutrophils % 2 % (0-9) Lymphocytes % 4 % (24-48) Monocytes % 2 % (0-10) Nucleated Red Blood Cells 1 Platelet Estimate Adequate (ADEQUATE) Sodium Level 126 mmol/L (136-145) Potassium Level 6.7 mmol/L (3.5-5.1) Chloride Level 92 mmol/L (98-107) Carbon Dioxide Level 21 mmol/L (21-32) Anion Gap 13 (6-14) Blood Urea Nitrogen 113 mg/dL (8-26) Creatinine 2.6 mg/dL (0.7-1.3) Estimated GFR (Cockcroft-Gault) 25.1 BUN/Creatinine Ratio 43 (6-20) Glucose Level 205 mg/dL (70-99) Calcium Level 8.7 mg/dL (8.5-10.1) Phosphorus Level 5.7 mg/dL (2.6-4.7) Magnesium Level 2.8 mg/dL (1.8-2.4) Total Bilirubin 1.4 mg/dL (0.2-1.0) Aspartate Amino Transf (AST/SGOT) 60 U/L (15-37) Alanine Aminotransferase (ALT/SGPT) 100 U/L (16-63) Alkaline Phosphatase 117 U/L (46-116) Total Protein 5.4 g/dL (6.4-8.2) Albumin 1.9 g/dL (3.4-5.0) Albumin/Globulin Ratio 0.5 (1.0-1.7) O2 Saturation 85 % (92-99) Arterial Blood pH 7.41 (7.35-7.45) Arterial Blood pCO2 at Patient Temp 29 mmHg (35-46) Arterial Blood pO2 at Patient Temp 55 mmHg (65-108) Arterial Blood HCO3 18 mmol/L (21-28) Arterial Blood Base Excess -5 mmol/L (-3-3) FiO2 100% vapotherm Images Images EXAM: XR CHEST 1V 04/01/2021 11:58 AM CLINICAL INDICATION: Dialysis catheter placement COMPARISON: Chest radiograph 03/28/2021 TECHNIQUE: AP supine view the chest FINDINGS: There is new left internal jugular central venous catheter with tip projecting over the superior cavoatrial junction. Cardiomegaly is unchanged. There are extensive bilateral airspace opacities, increased in the right upper lobe. No pleural effusion. No obvious pneumothorax, evaluation limited by supine position. IMPRESSION: 1. New left internal jugular central venous catheter with tip over the superior cavoatrial junction. 2. No obvious pneumothorax, evaluation limited by supine position. 3. Extensive bilateral airspace opacities, increased on the right. Electronically signed by: Yesi Ram MD (04/01/2021 12:29 PM) [id number] Assessment/Plan Assessment/Plan IMP COVID 19 PNEUMONIA HYPERKALEMIA [id number] WITH NO HX OF CKD MET ACIDOSIS ACUTE HYPOXIC RESP FAILURE LEUCOCYTOSIS LYMPHEDEMA MORBID OBESITY PLAN VERY POOR PROGNOSIS K BINDERS GIVEN D50, INSULIN GIVEN HCO3 NEEDED WILL NEED HD WILL HAVE IR PLACE TEMP HD LINE WILL HD TODAY ATTEMPT TO UF TOLERATED WILL CHECK UA PRESSORS NEEDED ANTIBIOTICS COVID 19 PROTOCOL SUPPLEMENTAL O2 AND LUNG SUPPORT NEEDED D/W ATTENDING JHONATHAN COPELAND MD Apr 01, 2021 16:09
[2021-04-01] MEDS ORDERED: DIALYSIS PATIENT. MC PRN ×2 (16:45)
[2021-04-01] MEDS: cefTRIAXone IV Push 1 GM VIAL. IVP SCH (18:03)
[2021-04-01 18:10] LABS: POTASSIUM 4.2 mmol/L (3.5-5.1)
[2021-04-01] MEDS: ATORVASTATIN CALCIUM 20 MG TABLET PO SCH (20:42)
[2021-04-01] MEDS: INSULIN GLARGINE SYRINGE. SQ SCH (20:44)
[2021-04-01] MEDS ORDERED: TOTAL PARENTERAL NUTRITION IV SCH (22:00)
[2021-04-01] MEDS ORDERED: [UNRECOGNIZED DRUG - OTHER] IV SCH (22:00)
[2021-04-01] MEDS ORDERED: DEXTROSE 70% IV SCH (22:00)
[2021-04-01] MEDS ORDERED: AMINO ACID IV SCH (22:00)
[2021-04-02] VITALS (32 sets, daily range): BP systolic 66–149; BP diastolic 48–87
--- NOTE | 2021-04-02 00:10 | NUR ---
At 2230 bp dropped to 54/44, this goes to assess pt and finds him agonally breathing with the vapotherm/bipap on. Removed bipap to bag pt and pt had copious amounts of blood from mouth and nose. No palpable pulse found, patria blue called. See code blue sheet for further details. Pt intubated during the code and approximately 700mls of blood suctioned from pt. During code bp never improved maxed on levo and vasopressin. Dr Pretty spoke with sister over the phone and the decision was made to stop all efforts and move to comfort care and to extubate. 2340 blood stopped and all drips. 2350 pt extubated. 0003 Pt was asystole. Sister notified of time of and will call nursing embroidery supervisor with home information. Addendum: 04/03/21 at 0204 by PATY JUAN RN actual date and time are 04/03/20 at 0010 for the night
[2021-04-02] MEDS: DEXMEDETOMIDINE 400 MCG in IV NORMAL SALINE 100ML 96 ML IV PRN ×6 (03:29→20:05)
[2021-04-02] MEDS: STERILE WATER for RESP 2,000 ML BAG. INH PRN (05:00)
[2021-04-02 05:59] LABS: ALBUMIN 1.6 g/dL (3.4-5.0); ALBUMIN/GLOBULIN RATIO 0.6 (1.0-1.7); CALCIUM 7.6 mg/dL (8.5-10.1); CREATININE 2.5 mg/dL (0.7-1.3); GFR 26.3; POTASSIUM 5.8 mmol/L (3.5-5.1); TOTAL BILIRUBIN 1.7 mg/dL (0.2-1.0); TOTAL PROTEIN 4.3 g/dL (6.4-8.2)
[2021-04-02 06:00] LABS: MAGNESIUM 2.5 mg/dL (1.8-2.4); PHOSPHORUS 5.6 mg/dL (2.6-4.7)
[2021-04-02] MEDS: metFORMIN 500 MG TABLET PO SCH ×2 (08:00→17:00)
[2021-04-02] MEDS: IPRATROPIUM/ALBUTEROL 20/100mcg/INH INHALER. INH SCH ×4 (08:00→20:00)
[2021-04-02] MEDS: ASPIRIN CHEWABLE 81 MG TABLET. PO SCH (08:00)
--- NOTE | 2021-04-02 08:26 | PDOC ---
[employer] PROGRESS NOTE Date of Service DOS: DATE: 04/02/21 TIME: 08:24 Chief Complaint Chief Complaint A/P Acute hypoxic respiratory failure secondary to COVID-19 pneumonia COVID-19 Acute encephalopathy - no focal neuro deficits, does have ETOH use disorder history, likely withdrawal Afib - prn metoprolol, lovenox. paroxsymal per history Morbid obesity - counseled DM2 - sliding scale COPD? - per chart review Hyperkalemia Acute Renal failure - started dialysis 04/01/2021 FEN - Regular diet PPX - lovenox FULL CODE Dispo - ICU History of Present Illness History of Present Illness Mr Carter is a 60-year-old male w/ PMHx obesity, COPD, ETOH use disorder, smoker (stopped smoking 1 month prior to admit) who presented to [facility] with respiratory failure, increasing dyspnea and shortness of breath. Chest x-ray demonstrated bilateral infiltrates. He tested positive for COVID pneumonia on 02/28/2021. He has not been vaccinated. He regrets that decision. Was initially requiring 10 liters of oxygen by high flow nasal cannula to maintain sats around 90%. He has morbid obesity with a weight of 385 pounds. He also has paroxysmal atrial fibrillation requiring Cardizem drip. He was placed on COVID-19 protocol. Transferred. Started him on remdesivir. He is already on broad-spectrum antibiotics. Consult Pulmonary Medicine and ICU admit. 03/22:Patient evaluated examined at bedside. Continue current Covid treatment. Pulmonary following. Antibiotics remdesivir fever oxygen as needed. Continue current plan. Plan of care discussed with bedside RN. 03/23: Late entry for March 23. Patient evaluated examined at bedside. Still on Covid treatment. Pulmonary following. Wean O2 as tolerated. Plan of care discussed with bedside RN. 03/24: Patient evaluated and examined at bedside. Still remains on Vapotherm no success with weaning. Appreciate pulmonary discussing advance care planning with patient. Continue current Covid treatment. Not a tocilizumab candidate. Plan of care discussed with bedside RN. 03/25: Patient evaluated and examined at bedside. Remains on Vapotherm unsuccessful to any weaning. Hyperkalemia a bit worse today will treat. Continue COVID treatments. Patient insistent on remaining a full code plan of care discussed with bedside RN. 03/26: Patient evaluated examined at bedside. Still on Vapotherm but on 30 L/min 90% FiO2. Wean as tolerated. Potassium okay today. Pulmonary following. Continue current plan otherwise. 03/27: Patient evaluated examined at bedside. Still remains on Vapotherm. Given difficulty with weaning and long duration of admission referral sent for LTAC today per social work. Pulmonary following. 03/28: Patient evaluated examined at bedside. Remains on Vapotherm. LTAC discharge on Thursday looks like 03/29: Patient evaluated examined at bedside. Remains on Vapotherm with success with meeting. Trying Lasix per pulmonary. May be LTAC accepted Thursday. 03/30: Patient evaluated examined at bedside. Still on Vapotherm no success with weaning. Expecting LTAC DC tomorrow 04/01: Seen bedside in ICU. Vapotherm 35 L/min 100% FiO2 with O2 saturations 92%. Afib on telemetry. Confused, but less agitated. 04/02: Started on dialysis for potassium of 6.7 BUN 113. Used. O2 saturations 90% on 40 L/min 100% FiO2 Vapotherm. K5.8 today. cc time 33 min Vitals/I&O Vitals/I&O: Vital Signs Date Time Temp Pulse Resp B/P (MAP) Pulse Ox O2 Delivery O2 Flow Rate FiO2 04/02/21 08:17 96.7 100 11 107/80 92 Vapotherm 40.0 96.7 I & O 04/01/21 04/01/21 04/02/21 15:00 23:00 07:00 Intake Total 521 ml 890.19 ml Output Total 525 ml 160 ml 175 ml Balance -525 ml 361 ml 715.19 ml Physical Exam General: severe distress Heart: Regular rate Abdomen: Normal bowel sounds, Soft, No tenderness Extremities: No edema, Normal pulses Skin: No rashes Labs Labs: Laboratory Tests Test 04/01/21 09:00 04/01/21 11:38 04/01/21 12:24 04/01/21 17:54 White Blood Count 21.1 x10^3/uL (4.0-11.0) Red Blood Count 4.55 x10^6/uL (4.30-5.70) Hemoglobin 13.7 g/dL (13.0-17.5) Hematocrit 42.6 % (39.0-53.0) Mean Corpuscular Volume 94 fL (79-100) Mean Corpuscular Hemoglobin 30 pg (25-35) Mean Corpuscular Hemoglobin Concent 32 g/dL (31-37) Red Cell Distribution Width 15.3 % (11.5-14.5) Platelet Count 241 x10^3/uL (140-400) Neutrophils (%) (Auto) 93 % (31-73) Lymphocytes (%) (Auto) 2 % (24-48) Monocytes (%) (Auto) 5 % (0-9) Eosinophils (%) (Auto) 0 % (0-3) Basophils (%) (Auto) 1 % (0-3) Neutrophils # (Auto) 19.7 x10^3/uL (1.8-7.7) Lymphocytes # (Auto) 0.3 x10^3/uL (1.0-4.8) Monocytes # (Auto) 0.9 x10^3/uL (0.0-1.1) Eosinophils # (Auto) 0.0 x10^3/uL (0.0-0.7) Basophils # (Auto) 0.1 x10^3/uL (0.0-0.2) Segmented Neutrophils % 92 % (35-66) Band Neutrophils % 2 % (0-9) Lymphocytes % 4 % (24-48) Monocytes % 2 % (0-10) Nucleated Red Blood Cells 1 Platelet Estimate Adequate (ADEQUATE) Sodium Level 126 mmol/L (136-145) 132 mmol/L (136-145) Potassium Level 6.7 mmol/L (3.5-5.1) 4.2 mmol/L (3.5-5.1) Chloride Level 92 mmol/L (98-107) Carbon Dioxide Level 21 mmol/L (21-32) Anion Gap 13 (6-14) Blood Urea Nitrogen 113 mg/dL (8-26) Creatinine 2.6 mg/dL (0.7-1.3) Estimated GFR (Cockcroft-Gault) 25.1 BUN/Creatinine Ratio 43 (6-20) Glucose Level 205 mg/dL (70-99) Calcium Level 8.7 mg/dL (8.5-10.1) Phosphorus Level 5.7 mg/dL (2.6-4.7) Magnesium Level 2.8 mg/dL (1.8-2.4) Total Bilirubin 1.4 mg/dL (0.2-1.0) Aspartate Amino Transf (AST/SGOT) 60 U/L (15-37) Alanine Aminotransferase (ALT/SGPT) 100 U/L (16-63) Alkaline Phosphatase 117 U/L (46-116) Total Protein 5.4 g/dL (6.4-8.2) Albumin 1.9 g/dL (3.4-5.0) Albumin/Globulin Ratio 0.5 (1.0-1.7) O2 Saturation 85 % (92-99) Arterial Blood pH 7.41 (7.35-7.45) Arterial Blood pCO2 at Patient Temp 29 mmHg (35-46) Arterial Blood pO2 at Patient Temp 55 mmHg (65-108) Arterial Blood HCO3 18 mmol/L (21-28) Arterial Blood Base Excess -5 mmol/L (-3-3) FiO2 100% vapotherm Glucose (Fingerstick) 198 mg/dL (70-99) Test 04/01/21 17:57 04/01/21 20:15 04/02/21 05:10 Glucose (Fingerstick) 120 mg/dL (70-99) Hepatitis B Surface Antigen Nonreactive (Nonreactive) Sodium Level 128 mmol/L (136-145) Potassium Level 5.8 mmol/L (3.5-5.1) Chloride Level 93 mmol/L (98-107) Carbon Dioxide Level 21 mmol/L (21-32) Anion Gap 14 (6-14) Blood Urea Nitrogen 94 mg/dL (8-26) Creatinine 2.5 mg/dL (0.7-1.3) Estimated GFR (Cockcroft-Gault) 26.3 BUN/Creatinine Ratio 38 (6-20) Glucose Level 259 mg/dL (70-99) Calcium Level 7.6 mg/dL (8.5-10.1) Phosphorus Level 5.6 mg/dL (2.6-4.7) Magnesium Level 2.5 mg/dL (1.8-2.4) Total Bilirubin 1.7 mg/dL (0.2-1.0) Aspartate Amino Transf (AST/SGOT) 105 U/L (15-37) Alanine Aminotransferase (ALT/SGPT) 126 U/L (16-63) Alkaline Phosphatase 119 U/L (46-116) Total Protein 4.3 g/dL (6.4-8.2) Albumin 1.6 g/dL (3.4-5.0) Albumin/Globulin Ratio 0.6 (1.0-1.7) Triglycerides Level 88 mg/dL (0-150) Comment Review of Relevant I have reviewed the following items traci (where applicable) has been applied. Medications: Current Medications Medications (Trade) Dose Ordered Sig/Holly Route PRN Reason Start Time Stop Time Status Last Admin Dose Admin Info (Tpn Per Pharmacy) 1 each PRN DAILY PRN MC SEE COMMENTS 04/01/21 09:00 04/01/21 13:18 Sodium Bicarbonate (Sodium Bicarb Adult 8.4% Syr) 50 meq 1X ONCE IV 04/01/21 09:30 04/01/21 09:32 DC 04/01/21 09:55 Dextrose (Dextrose 50%-Water Syringe) 25 gm 1X ONCE IV 04/01/21 09:30 04/01/21 09:32 DC 04/01/21 09:55 Insulin Human Regular (HumuLIN R VIAL) 10 unit 1X ONCE IV 04/01/21 09:30 04/01/21 09:37 DC 04/01/21 09:56 Sodium Polystyrene Sulfonate (Kayexalate) 30 gm 1X ONCE PO 04/01/21 09:30 04/01/21 09:32 DC 04/01/21 09:56 Lidocaine HCl (Buffered Lidocaine 1%) 3 ml 1X ONCE INJ 04/01/21 11:45 04/01/21 11:50 DC 04/01/21 11:49 Heparin Sodium (Porcine) (Heparin Sodium) 2,500 unit 1X ONCE INT CAT 04/01/21 11:45 04/01/21 11:50 DC 04/01/21 11:50 Sodium Chloride 90 meq/ Multivitamins 10 ml/Zinc/Copper/ Manganese/ Selenium 1 ml/ Total Parenteral Nutrition/Amino Acids/Dextrose/ Fat Emulsion Intravenous 1,320 ml @ 55 mls/hr TPN CONT IV 04/01/21 22:00 04/02/21 21:59 04/01/21 22:04 Justifications for Admission Other Justification LARY PARKER MD Apr 02, 2021 08:26
[2021-04-02] MEDS ORDERED: ALBUMIN HUMAN 25% 200 ML IV PRN (08:30)
[2021-04-02] MEDS ORDERED: IV NORMAL SALINE 1000ML BAG 1,000 ML IV PRN ×2 (08:30)
[2021-04-02] MEDS: LACTOBACILLUS RHAMNOSUS GG 1 CAPSULE. PO SCH ×2 (09:00→20:07)
[2021-04-02] MEDS: MULTIVITAMIN with MINERAL TABLET. PO SCH (09:00)
[2021-04-02 09:26] LABS: BILIRUBIN,URINE NEGATIVE (NEG); CLARITY,URINE CLOUDY; COLOR,URINE AMBER; NITRITE,URINE NEGATIVE (NEG); PROTEIN,URINE NEGATIVE (NEG-TRACE)
[2021-04-02] MEDS: NOREPINEPHRINE VIAL 8 MG in IV DEXTROSE 5% 250 ML IV PRN ×2 (09:33→12:07)
[2021-04-02 09:46] LABS: BACTERIA,URINE FEW /HPF (0-FEW); HYALINE CASTS, URINE MANY /HPF
[2021-04-02] MEDS ORDERED: DIALYSIS PATIENT. MC PRN ×2 (10:00)
--- NOTE | 2021-04-02 10:34 | PDOC ---
Renal-Progress Notes Subjective Notes Notes CONFUSED History of Present Illness Hx of present illness NO ACUTE CHANGES Vitals Vitals Vital Signs Date Time Temp Pulse Resp B/P (MAP) Pulse Ox O2 Delivery O2 Flow Rate FiO2 04/02/21 10:08 122 21 116/87 91 Vapotherm 40.0 04/02/21 08:17 96.7 96.7 Weight Weight [ ] I.O. Intake and Output Intake and Output 04/02/21 07:00 Intake Total 1411.19 ml Output Total 860 ml Balance 551.19 ml IV Total 1411.19 ml Output Urine Total 860 ml Labs Labs Laboratory Tests Test 04/01/21 11:38 04/01/21 12:24 04/01/21 17:54 04/01/21 17:57 O2 Saturation 85 % (92-99) Arterial Blood pH 7.41 (7.35-7.45) Arterial Blood pCO2 at Patient Temp 29 mmHg (35-46) Arterial Blood pO2 at Patient Temp 55 mmHg (65-108) Arterial Blood HCO3 18 mmol/L (21-28) Arterial Blood Base Excess -5 mmol/L (-3-3) FiO2 100% vapotherm Glucose (Fingerstick) 198 mg/dL (70-99) 120 mg/dL (70-99) Sodium Level 132 mmol/L (136-145) Potassium Level 4.2 mmol/L (3.5-5.1) Test 04/01/21 20:15 04/02/21 05:10 04/02/21 08:15 Hepatitis B Surface Antigen Nonreactive (Nonreactive) Sodium Level 128 mmol/L (136-145) Potassium Level 5.8 mmol/L (3.5-5.1) Chloride Level 93 mmol/L (98-107) Carbon Dioxide Level 21 mmol/L (21-32) Anion Gap 14 (6-14) Blood Urea Nitrogen 94 mg/dL (8-26) Creatinine 2.5 mg/dL (0.7-1.3) Estimated GFR (Cockcroft-Gault) 26.3 BUN/Creatinine Ratio 38 (6-20) Glucose Level 259 mg/dL (70-99) Calcium Level 7.6 mg/dL (8.5-10.1) Phosphorus Level 5.6 mg/dL (2.6-4.7) Magnesium Level 2.5 mg/dL (1.8-2.4) Total Bilirubin 1.7 mg/dL (0.2-1.0) Aspartate Amino Transf (AST/SGOT) 105 U/L (15-37) Alanine Aminotransferase (ALT/SGPT) 126 U/L (16-63) Alkaline Phosphatase 119 U/L (46-116) Total Protein 4.3 g/dL (6.4-8.2) Albumin 1.6 g/dL (3.4-5.0) Albumin/Globulin Ratio 0.6 (1.0-1.7) Triglycerides Level 88 mg/dL (0-150) Hepatitis B Core Total Antibody Nonreactive (Nonreactive) Urine Collection Type Unknown Urine Color Silvia Urine Clarity Cloudy Urine pH 5.0 (<5.0-8.0) Urine Specific [place] 1.020 (1.000-1.030) Urine Protein Negative mg/dL (NEG-TRACE) Urine Glucose (UA) Negative mg/dL (NEG) Urine Ketones (Stick) Negative mg/dL (NEG) Urine Blood Large (NEG) Urine Nitrite Negative (NEG) Urine Bilirubin Negative (NEG) Urine Urobilinogen Dipstick 1.0 mg/dL (0.2 mg/dL) Urine Leukocyte Esterase Trace (NEG) Urine RBC 11-20 /HPF (0-2) Urine WBC 5-10 /HPF (0-4) Urine Squamous Epithelial Cells Mod /LPF Urine Bacteria Few /HPF (0-FEW) Urine Hyaline Casts Many /HPF Urine Mucus Slight /LPF Review of Systems Constitutional: yes: unresponsive Physical Exam General Appearance: moderate distress Skin: warm Respiratory: decreased breath sounds Heart: S1S2 Abdomen: soft, other (HYPOACTIVE BS) Extremities: pulses present, edema Neurology: confused Musculoskeletal: low back pain Assessment Assessment IMP COVID 19 PNEUMONIA HYPERKALEMIA HYPONATREMIA [id number] WITH NO HX OF CKD MET ACIDOSIS ACUTE HYPOXIC RESP FAILURE LEUCOCYTOSIS LYMPHEDEMA MORBID OBESITY PLAN VERY POOR PROGNOSIS HCO3 NEEDED HD AGAIN TODAY NEEDS UF WILL USE 100 GM SPA TO HELP WITH UF ATTEMPT TO UF TOLERATED PRESSORS TO BE TITRATED ANTIBIOTICS COVID 19 PROTOCOL SUPPLEMENTAL O2 AND LUNG SUPPORT NEEDED ON VAPOTHERM CONT TPN D/W ATTENDING JHONATHAN COPELAND MD Apr 02, 2021 10:34
[2021-04-02] MEDS: TPN PER PHARMACY MC PRN (11:04)
--- NOTE | 2021-04-02 11:08 | PDOC ---
PULMONARY PROGRESS NOTES DATE: 04/02/21 TIME: 11:07 Subjective Remains on 100% FiO2 via Vapotherm. Initiated on hemodialysis yesterday. Vitals Vital Signs Date Time Temp Pulse Resp B/P (MAP) Pulse Ox O2 Delivery O2 Flow Rate FiO2 04/02/21 10:08 122 21 116/87 91 Vapotherm 40.0 04/02/21 08:17 96.7 96.7 Comments ros as mentioned as above Visual exam done due to COVID-19 viral pneumonia. morbidly obese no distress nc at rr abd obese No use of accessory muscles. No paradoxical abd motion. Lower extremities with lymphedema. Labs Laboratory Tests Test 03/31/21 13:01 03/31/21 16:57 04/01/21 09:00 04/01/21 11:38 Glucose (Fingerstick) 232 mg/dL (70-99) 184 mg/dL (70-99) White Blood Count 21.1 x10^3/uL (4.0-11.0) Red Blood Count 4.55 x10^6/uL (4.30-5.70) Hemoglobin 13.7 g/dL (13.0-17.5) Hematocrit 42.6 % (39.0-53.0) Mean Corpuscular Volume 94 fL (79-100) Mean Corpuscular Hemoglobin 30 pg (25-35) Mean Corpuscular Hemoglobin Concent 32 g/dL (31-37) Red Cell Distribution Width 15.3 % (11.5-14.5) Platelet Count 241 x10^3/uL (140-400) Neutrophils (%) (Auto) 93 % (31-73) Lymphocytes (%) (Auto) 2 % (24-48) Monocytes (%) (Auto) 5 % (0-9) Eosinophils (%) (Auto) 0 % (0-3) Basophils (%) (Auto) 1 % (0-3) Neutrophils # (Auto) 19.7 x10^3/uL (1.8-7.7) Lymphocytes # (Auto) 0.3 x10^3/uL (1.0-4.8) Monocytes # (Auto) 0.9 x10^3/uL (0.0-1.1) Eosinophils # (Auto) 0.0 x10^3/uL (0.0-0.7) Basophils # (Auto) 0.1 x10^3/uL (0.0-0.2) Segmented Neutrophils % 92 % (35-66) Band Neutrophils % 2 % (0-9) Lymphocytes % 4 % (24-48) Monocytes % 2 % (0-10) Nucleated Red Blood Cells 1 Platelet Estimate Adequate (ADEQUATE) Sodium Level 126 mmol/L (136-145) Potassium Level 6.7 mmol/L (3.5-5.1) Chloride Level 92 mmol/L (98-107) Carbon Dioxide Level 21 mmol/L (21-32) Anion Gap 13 (6-14) Blood Urea Nitrogen 113 mg/dL (8-26) Creatinine 2.6 mg/dL (0.7-1.3) Estimated GFR (Cockcroft-Gault) 25.1 BUN/Creatinine Ratio 43 (6-20) Glucose Level 205 mg/dL (70-99) Calcium Level 8.7 mg/dL (8.5-10.1) Phosphorus Level 5.7 mg/dL (2.6-4.7) Magnesium Level 2.8 mg/dL (1.8-2.4) Total Bilirubin 1.4 mg/dL (0.2-1.0) Aspartate Amino Transf (AST/SGOT) 60 U/L (15-37) Alanine Aminotransferase (ALT/SGPT) 100 U/L (16-63) Alkaline Phosphatase 117 U/L (46-116) Total Protein 5.4 g/dL (6.4-8.2) Albumin 1.9 g/dL (3.4-5.0) Albumin/Globulin Ratio 0.5 (1.0-1.7) O2 Saturation 85 % (92-99) Arterial Blood pH 7.41 (7.35-7.45) Arterial Blood pCO2 at Patient Temp 29 mmHg (35-46) Arterial Blood pO2 at Patient Temp 55 mmHg (65-108) Arterial Blood HCO3 18 mmol/L (21-28) Arterial Blood Base Excess -5 mmol/L (-3-3) FiO2 100% vapotherm Test 04/01/21 12:24 04/01/21 17:54 04/01/21 17:57 04/01/21 20:15 Glucose (Fingerstick) 198 mg/dL (70-99) 120 mg/dL (70-99) Sodium Level 132 mmol/L (136-145) Potassium Level 4.2 mmol/L (3.5-5.1) Hepatitis B Surface Antigen Nonreactive (Nonreactive) Test 04/02/21 05:10 04/02/21 08:15 Sodium Level 128 mmol/L (136-145) Potassium Level 5.8 mmol/L (3.5-5.1) Chloride Level 93 mmol/L (98-107) Carbon Dioxide Level 21 mmol/L (21-32) Anion Gap 14 (6-14) Blood Urea Nitrogen 94 mg/dL (8-26) Creatinine 2.5 mg/dL (0.7-1.3) Estimated GFR (Cockcroft-Gault) 26.3 BUN/Creatinine Ratio 38 (6-20) Glucose Level 259 mg/dL (70-99) Calcium Level 7.6 mg/dL (8.5-10.1) Phosphorus Level 5.6 mg/dL (2.6-4.7) Magnesium Level 2.5 mg/dL (1.8-2.4) Total Bilirubin 1.7 mg/dL (0.2-1.0) Aspartate Amino Transf (AST/SGOT) 105 U/L (15-37) Alanine Aminotransferase (ALT/SGPT) 126 U/L (16-63) Alkaline Phosphatase 119 U/L (46-116) Total Protein 4.3 g/dL (6.4-8.2) Albumin 1.6 g/dL (3.4-5.0) Albumin/Globulin Ratio 0.6 (1.0-1.7) Triglycerides Level 88 mg/dL (0-150) Hepatitis B Core Total Antibody Nonreactive (Nonreactive) Urine Collection Type Unknown Urine Color Silvia Urine Clarity Cloudy Urine pH 5.0 (<5.0-8.0) Urine Specific [place] 1.020 (1.000-1.030) Urine Protein Negative mg/dL (NEG-TRACE) Urine Glucose (UA) Negative mg/dL (NEG) Urine Ketones (Stick) Negative mg/dL (NEG) Urine Blood Large (NEG) Urine Nitrite Negative (NEG) Urine Bilirubin Negative (NEG) Urine Urobilinogen Dipstick 1.0 mg/dL (0.2 mg/dL) Urine Leukocyte Esterase Trace (NEG) Urine RBC 11-20 /HPF (0-2) Urine WBC 5-10 /HPF (0-4) Urine Squamous Epithelial Cells Mod /LPF Urine Bacteria Few /HPF (0-FEW) Urine Hyaline Casts Many /HPF Urine Mucus Slight /LPF Laboratory Tests Test 04/01/21 11:38 04/01/21 12:24 04/01/21 17:54 04/01/21 17:57 O2 Saturation 85 % (92-99) Arterial Blood pH 7.41 (7.35-7.45) Arterial Blood pCO2 at Patient Temp 29 mmHg (35-46) Arterial Blood pO2 at Patient Temp 55 mmHg (65-108) Arterial Blood HCO3 18 mmol/L (21-28) Arterial Blood Base Excess -5 mmol/L (-3-3) FiO2 100% vapotherm Glucose (Fingerstick) 198 mg/dL (70-99) 120 mg/dL (70-99) Sodium Level 132 mmol/L (136-145) Potassium Level 4.2 mmol/L (3.5-5.1) Test 04/01/21 20:15 04/02/21 05:10 04/02/21 08:15 Hepatitis B Surface Antigen Nonreactive (Nonreactive) Sodium Level 128 mmol/L (136-145) Potassium Level 5.8 mmol/L (3.5-5.1) Chloride Level 93 mmol/L (98-107) Carbon Dioxide Level 21 mmol/L (21-32) Anion Gap 14 (6-14) Blood Urea Nitrogen 94 mg/dL (8-26) Creatinine 2.5 mg/dL (0.7-1.3) Estimated GFR (Cockcroft-Gault) 26.3 BUN/Creatinine Ratio 38 (6-20) Glucose Level 259 mg/dL (70-99) Calcium Level 7.6 mg/dL (8.5-10.1) Phosphorus Level 5.6 mg/dL (2.6-4.7) Magnesium Level 2.5 mg/dL (1.8-2.4) Total Bilirubin 1.7 mg/dL (0.2-1.0) Aspartate Amino Transf (AST/SGOT) 105 U/L (15-37) Alanine Aminotransferase (ALT/SGPT) 126 U/L (16-63) Alkaline Phosphatase 119 U/L (46-116) Total Protein 4.3 g/dL (6.4-8.2) Albumin 1.6 g/dL (3.4-5.0) Albumin/Globulin Ratio 0.6 (1.0-1.7) Triglycerides Level 88 mg/dL (0-150) Hepatitis B Core Total Antibody Nonreactive (Nonreactive) Urine Collection Type Unknown Urine Color [place]via Urine Clarity Cloudy Urine pH 5.0 (<5.0-8.0) Urine Specific [place] 1.020 (1.000-1.030) Urine Protein Negative mg/dL (NEG-TRACE) Urine Glucose (UA) Negative mg/dL (NEG) Urine Ketones (Stick) Negative mg/dL (NEG) Urine Blood Large (NEG) Urine Nitrite Negative (NEG) Urine Bilirubin Negative (NEG) Urine Urobilinogen Dipstick 1.0 mg/dL (0.2 mg/dL) Urine Leukocyte Esterase Trace (NEG) Urine RBC 11-20 /HPF (0-2) Urine WBC 5-10 /HPF (0-4) Urine Squamous Epithelial Cells Mod /LPF Urine Bacteria Few /HPF (0-FEW) Urine Hyaline Casts Many /HPF Urine Mucus Slight /LPF Impression . 1. Acute hypoxic respiratory failure secondary to COVID-19 viral pneumonia leading to acute respiratory distress syndrome. worsening. On 100% FiO2 via Vapotherm. 2. Abnormal chest x-ray with extensive bilateral infiltrates consistent with viral pneumonia. 3. Thrombocytopenia, likely caused by viral pneumonia. 4. C-reactive protein 41. Does not meet the criteria for Actemra. 5. Morbid obesity and underlying suspected chronic obstructive pulmonary disease highly contributing to the severity of hypoxia. 6. Lymphedema, component of cor -pulmonale . 7. Hematuria 8. Hyperkalemia and KEKE. Plan . Updated 04/02 on vapotherm and nrb desat easily. Will use as needed BiPAP. Monitor resp status closely may need intubation. Patient is a high risk for respiratory failure secondary to marked obesity and severity of hypoxia. Renal recommendation regarding hemodialysis. It was initiated 04/01/2021. titrate fio2 to keep sat 90% solumedrol 60 bid IS monitor k, cr Low-dose Levophed Remdesivir lovenox for dvt prophylaxis discussed w rn pt Updated 04/01 on vapotherm and nrb desat easily. Will use as needed BiPAP. Monitor resp status closely may need intubation. Patient is a high risk for respiratory failure secondary to marked obesity and severity of hypoxia. Renal recommendation regarding hemodialysis. To be initiated today. titrate fio2 to keep sat 90% solumedrol 60 bid IS monitor k, cr Remdesivir lovenox for dvt prophylaxis discussed w rn pt Updated 03/31 on vapotherm and nrb desat easily will transfer to icu monitor resp status closely may need bipap intubation will change lasix to 40 mg iv first dose now titrate fio2 to keep sat 90% solumedrol 60 bid IS monitor k, cr Remdesivir lovenox for dvt prophylaxis discussed w rn pt Updated 03/30 titrate fio2 to keep sat 90% Continue to diurese monitor k, cr Vapotherm Remdesivir lovenox for dvt prophylaxis discussed w rn Updated 03/29 Continue to diurese Vapotherm Remdesivir Anticoagulation per PCP updated 03/28 Continue oxygen per Vapotherm, patient appears comfortable If continues to be tenuous and critically ill Daily Lasix Up to chair Remdesivir Continue anticoagulation for now, if hematuria worsens will discontinue. AMINATA MORA MD Apr 02, 2021 11:08
--- NOTE | 2021-04-02 11:10 | NUR ---
Pharmacy TPN Dosing Note S: POLY GONZALEZ is a 60 year old M Currently receiving Central Continuous TPN started 04/01/21 B:Pertinent PMH: Need for BiPAP/easily desaturates and unable to eat Height: 6 feet, 1 inches Weight: 186.6 kg Current diet: ADA LABS: Sodium: 128 Potassium: 5.8 Chloride: 93 Calcium: 7.6 Corrected Calcium: 9.52 Magnesium: 2.5 CO2: 21 SCr: 2.5 Glucose: 259 Albumin: 1.6 AST: 105 ALT: 126 TPN FORMULA: TPN TYPE: Central Continuous AMINO ACIDS: 60 gm DEXTROSE: 195 gm LIPIDS: 0 gm SODIUM CHLORIDE: 110 mEq CALCIUM: 5 mEq MULTIPLE VITAMIN: 10 ml TRACE ELEMENTS: 1 ml(s) TPN PLAN: Lipids removed per schedule Calcium 5 mEq added Sodium increased and volume further reduced. R: Change TPN per plan and ordered formula Will monitor electrolytes, glucose, and tolerance to TPN. Vijaya Sainz [facility], 04/02/21 1114
[2021-04-02] MEDS: INSULIN LISPRO 300 UNITS/3 ML VIAL. SQ SCH ×4 (12:40→17:33)
[2021-04-02] MEDS: methylPREDNISolone SOD SUCC PF 125 MG/2 ML VIAL. IV SCH ×2 (12:45→21:16)
--- NOTE | 2021-04-02 13:29 | NUR ---
SS following up with discharge planning. SS reviewed pt chart and discussed with pt RN. Pt is currently on Vapotherm and BIPAP at 100%. COVID19 positive. Art line. Pt on Hemodialysis. Pt on Levophed and Precedex. Pt on TPN, IV Rocephin, IV Lasix, and IV Solu-Medrol. Not stable. Insurance denied insurance approval to LTACH due to decline in medical status. SS will continue to follow for discharge planning.
[2021-04-02] MEDS: NOREPINEPHRINE VIAL 32 MG in IV D5W 250ML IV PRN ×3 (13:56→21:32)
[2021-04-02] MEDS: FUROSEMIDE 40 MG/4 ML VIAL. IVP SCH (15:27)
[2021-04-02] MEDS: cefTRIAXone IV Push 1 GM VIAL. IVP SCH (17:00)
--- NOTE | 2021-04-02 18:17 | NUR ---
During dialysis starting at 1045, patient's BP decreased to 70/50 map 55, had to increase levophed several times during dialysis from 0.1 to 0.7 with a stable BP of 100/79 map 93 at 1250.
[2021-04-02] MEDS: ATORVASTATIN CALCIUM 20 MG TABLET PO SCH (20:07)
[2021-04-02] MEDS ORDERED: VASOPRESSIN - VASOSTRICT 20 UNIT in IV DEXTROSE 5% 100ML 100 ML IV PRN (20:30)
[2021-04-02] MEDS: INSULIN GLARGINE SYRINGE. SQ SCH (21:17)
[2021-04-02] MEDS ORDERED: [UNRECOGNIZED DRUG - OTHER] IV SCH (22:00)
[2021-04-02] MEDS ORDERED: AMINO ACID IV SCH (22:00)
[2021-04-02] MEDS ORDERED: DEXTROSE 70% IV SCH (22:00)
[2021-04-02] MEDS ORDERED: TOTAL PARENTERAL NUTRITION IV SCH (22:00)
[2021-04-02] MEDS ORDERED: EPINEPHrine SYRINGE 1 MG/10 ML SYRINGE. ONE (23:00)
[2021-04-02] MEDS ORDERED: CALCIUM CHLORIDE 1,000 MG/10 ML DISP.SYRIN ONE (23:00)
[2021-04-02] MEDS ORDERED: SODIUM BICARB ADULT 8.4% 50 MEQ/50 ML DISP.SYRIN. ONE (23:00)
[2021-04-02] MEDS ORDERED: OCTREOTIDE 500 MCG in IV NORMAL SALINE 100ML 100 ML IV PRN (23:00)
--- NOTE | 2021-04-02 23:00 | NUR ---
Dr. Pretty ordered octreotide drip and 2 units of uncrossed match packed cells to be given stat, blood bank brought units over and were started.
[2021-04-02 23:12] LABS: BASE EXCESS ABG -16 mmol/L (-3-3); HCO3 ABG 19 mmol/L (21-28); PO2 ABG 52 mmHg (65-108)
[2021-04-02 23:13] LABS: PCO2 ABG 105 mmHg (35-46); SAT O2 ABG 55 % (92-99)
[2021-04-02 23:14] LABS: FIO2 ABG 100 (ambu)
[2021-04-02] MEDS ORDERED: MIDAZOLAM HCL/PF 2 MG/2 ML VIAL. ONE (23:31)
[2021-04-02] MEDS ORDERED: ROCURONIUM 50 MG/5 ML VIAL. ONE (23:32)
[2021-04-02] MEDS ORDERED: MIDAZOLAM HCL/PF 5 MG/5 ML VIAL. ONE (23:33)
--- NOTE | 2021-04-03 00:36 | PDOC ---
G I PROGRESS NOTE Subjective Consulted intra-arrest for blood NG return. Objective Patient did not survive arrest and before we could see. Review of Relevant I have reviewed the following items traci (where applicable) has been applied. Labs Laboratory Tests Test 04/01/21 09:00 04/01/21 11:38 04/01/21 12:24 04/01/21 17:54 White Blood Count 21.1 x10^3/uL (4.0-11.0) Red Blood Count 4.55 x10^6/uL (4.30-5.70) Hemoglobin 13.7 g/dL (13.0-17.5) Hematocrit 42.6 % (39.0-53.0) Mean Corpuscular Volume 94 fL (79-100) Mean Corpuscular Hemoglobin 30 pg (25-35) Mean Corpuscular Hemoglobin Concent 32 g/dL (31-37) Red Cell Distribution Width 15.3 % (11.5-14.5) Platelet Count 241 x10^3/uL (140-400) Neutrophils (%) (Auto) 93 % (31-73) Lymphocytes (%) (Auto) 2 % (24-48) Monocytes (%) (Auto) 5 % (0-9) Eosinophils (%) (Auto) 0 % (0-3) Basophils (%) (Auto) 1 % (0-3) Neutrophils # (Auto) 19.7 x10^3/uL (1.8-7.7) Lymphocytes # (Auto) 0.3 x10^3/uL (1.0-4.8) Monocytes # (Auto) 0.9 x10^3/uL (0.0-1.1) Eosinophils # (Auto) 0.0 x10^3/uL (0.0-0.7) Basophils # (Auto) 0.1 x10^3/uL (0.0-0.2) Segmented Neutrophils % 92 % (35-66) Band Neutrophils % 2 % (0-9) Lymphocytes % 4 % (24-48) Monocytes % 2 % (0-10) Nucleated Red Blood Cells 1 Platelet Estimate Adequate (ADEQUATE) Sodium Level 126 mmol/L (136-145) 132 mmol/L (136-145) Potassium Level 6.7 mmol/L (3.5-5.1) 4.2 mmol/L (3.5-5.1) Chloride Level 92 mmol/L (98-107) Carbon Dioxide Level 21 mmol/L (21-32) Anion Gap 13 (6-14) Blood Urea Nitrogen 113 mg/dL (8-26) Creatinine 2.6 mg/dL (0.7-1.3) Estimated GFR (Cockcroft-Gault) 25.1 BUN/Creatinine Ratio 43 (6-20) Glucose Level 205 mg/dL (70-99) Calcium Level 8.7 mg/dL (8.5-10.1) Phosphorus Level 5.7 mg/dL (2.6-4.7) Magnesium Level 2.8 mg/dL (1.8-2.4) Total Bilirubin 1.4 mg/dL (0.2-1.0) Aspartate Amino Transf (AST/SGOT) 60 U/L (15-37) Alanine Aminotransferase (ALT/SGPT) 100 U/L (16-63) Alkaline Phosphatase 117 U/L (46-116) Total Protein 5.4 g/dL (6.4-8.2) Albumin 1.9 g/dL (3.4-5.0) Albumin/Globulin Ratio 0.5 (1.0-1.7) O2 Saturation 85 % (92-99) Arterial Blood pH 7.41 (7.35-7.45) Arterial Blood pCO2 at Patient Temp 29 mmHg (35-46) Arterial Blood pO2 at Patient Temp 55 mmHg (65-108) Arterial Blood HCO3 18 mmol/L (21-28) Arterial Blood Base Excess -5 mmol/L (-3-3) FiO2 100% vapotherm Glucose (Fingerstick) 198 mg/dL (70-99) Test 04/01/21 17:57 04/01/21 20:15 04/02/21 05:10 04/02/21 08:15 Glucose (Fingerstick) 120 mg/dL (70-99) Hepatitis B Surface Antigen Nonreactive (Nonreactive) Sodium Level 128 mmol/L (136-145) Potassium Level 5.8 mmol/L (3.5-5.1) Chloride Level 93 mmol/L (98-107) Carbon Dioxide Level 21 mmol/L (21-32) Anion Gap 14 (6-14) Blood Urea Nitrogen 94 mg/dL (8-26) Creatinine 2.5 mg/dL (0.7-1.3) Estimated GFR (Cockcroft-Gault) 26.3 BUN/Creatinine Ratio 38 (6-20) Glucose Level 259 mg/dL (70-99) Calcium Level 7.6 mg/dL (8.5-10.1) Phosphorus Level 5.6 mg/dL (2.6-4.7) Magnesium Level 2.5 mg/dL (1.8-2.4) Total Bilirubin 1.7 mg/dL (0.2-1.0) Aspartate Amino Transf (AST/SGOT) 105 U/L (15-37) Alanine Aminotransferase (ALT/SGPT) 126 U/L (16-63) Alkaline Phosphatase 119 U/L (46-116) Total Protein 4.3 g/dL (6.4-8.2) Albumin 1.6 g/dL (3.4-5.0) Albumin/Globulin Ratio 0.6 (1.0-1.7) Triglycerides Level 88 mg/dL (0-150) Hepatitis B Core Total Antibody Nonreactive (Nonreactive) Urine Collection Type Unknown Urine Color Silvia Urine Clarity Cloudy Urine pH 5.0 (<5.0-8.0) Urine Specific [place] 1.020 (1.000-1.030) Urine Protein Negative mg/dL (NEG-TRACE) Urine Glucose (UA) Negative mg/dL (NEG) Urine Ketones (Stick) Negative mg/dL (NEG) Urine Blood Large (NEG) Urine Nitrite Negative (NEG) Urine Bilirubin Negative (NEG) Urine Urobilinogen Dipstick 1.0 mg/dL (0.2 mg/dL) Urine Leukocyte Esterase Trace (NEG) Urine RBC 11-20 /HPF (0-2) Urine WBC 5-10 /HPF (0-4) Urine Squamous Epithelial Cells Mod /LPF Urine Bacteria Few /HPF (0-FEW) Urine Hyaline Casts Many /HPF Urine Mucus Slight /LPF Test 04/02/21 12:10 04/02/21 17:31 04/02/21 23:05 Glucose (Fingerstick) 284 mg/dL (70-99) 291 mg/dL (70-99) O2 Saturation 55 % (92-99) Arterial Blood pH 6.87 (7.35-7.45) Arterial Blood pCO2 at Patient Temp 105 mmHg (35-46) Arterial Blood pO2 at Patient Temp 52 mmHg (65-108) Arterial Blood HCO3 19 mmol/L (21-28) Arterial Blood Base Excess -16 mmol/L (-3-3) FiO2 100 (ambu) Laboratory Tests Test 04/02/21 05:10 04/02/21 08:15 04/02/21 12:10 04/02/21 17:31 Sodium Level 128 mmol/L (136-145) Potassium Level 5.8 mmol/L (3.5-5.1) Chloride Level 93 mmol/L (98-107) Carbon Dioxide Level 21 mmol/L (21-32) Anion Gap 14 (6-14) Blood Urea Nitrogen 94 mg/dL (8-26) Creatinine 2.5 mg/dL (0.7-1.3) Estimated GFR (Cockcroft-Gault) 26.3 BUN/Creatinine Ratio 38 (6-20) Glucose Level 259 mg/dL (70-99) Calcium Level 7.6 mg/dL (8.5-10.1) Phosphorus Level 5.6 mg/dL (2.6-4.7) Magnesium Level 2.5 mg/dL (1.8-2.4) Total Bilirubin 1.7 mg/dL (0.2-1.0) Aspartate Amino Transf (AST/SGOT) 105 U/L (15-37) Alanine Aminotransferase (ALT/SGPT) 126 U/L (16-63) Alkaline Phosphatase 119 U/L (46-116) Total Protein 4.3 g/dL (6.4-8.2) Albumin 1.6 g/dL (3.4-5.0) Albumin/Globulin Ratio 0.6 (1.0-1.7) Triglycerides Level 88 mg/dL (0-150) Hepatitis B Core Total Antibody Nonreactive (Nonreactive) Urine Collection Type Unknown Urine Color Silvia Urine Clarity Cloudy Urine pH 5.0 (<5.0-8.0) Urine Specific [place] 1.020 (1.000-1.030) Urine Protein Negative mg/dL (NEG-TRACE) Urine Glucose (UA) Negative mg/dL (NEG) Urine Ketones (Stick) Negative mg/dL (NEG) Urine Blood Large (NEG) Urine Nitrite Negative (NEG) Urine Bilirubin Negative (NEG) Urine Urobilinogen Dipstick 1.0 mg/dL (0.2 mg/dL) Urine Leukocyte Esterase Trace (NEG) Urine RBC 11-20 /HPF (0-2) Urine WBC 5-10 /HPF (0-4) Urine Squamous Epithelial Cells Mod /LPF Urine Bacteria Few /HPF (0-FEW) Urine Hyaline Casts Many /HPF Urine Mucus Slight /LPF Glucose (Fingerstick) 284 mg/dL (70-99) 291 mg/dL (70-99) Test 04/02/21 23:05 O2 Saturation 55 % (92-99) Arterial Blood pH 6.87 (7.35-7.45) Arterial Blood pCO2 at Patient Temp 105 mmHg (35-46) Arterial Blood pO2 at Patient Temp 52 mmHg (65-108) Arterial Blood HCO3 19 mmol/L (21-28) Arterial Blood Base Excess -16 mmol/L (-3-3) FiO2 100 (ambu) Medications Current Medications Remdesivir 200 mg/ Sodium Chloride 210 ml @ 210 mls/hr 1X ONCE IV Last administered on 03/21/21at 17:27; Start 03/21/21 at 17:00; Stop 03/21/21 at 17:59; Status DC Remdesivir 100 mg/ Sodium Chloride 230 ml @ 460 mls/hr Q24H IV Last administered on 03/25/21at 16:53; Start 03/22/21 at 17:00; Stop 03/25/21 at 17:29; Status DC Atorvastatin Calcium (Lipitor) 20 mg HS PO Last administered on 04/01/21at 20:4 2; Start 03/21/21 at 21:00 Azithromycin 250 ml @ 250 mls/hr DAILY IV ; Start 03/22/21 at 09:00; Status UNV Furosemide (Lasix) 40 mg DAILY PO Last administered on 03/30/21at 11:55; Start 03/22/21 at 09:00; Stop 03/31/21 at 07:11; Status DC Insulin Human Lispro (HumaLOG) 0-9 UNITS TIDWMEALS SQ Last administered on 04/01/21at 09:59; Start 03/21/21 at 17:00; Stop 04/02/21 at 07:47; Status DC Dextrose (Dextrose 50%-Water Syringe) 12.5 gm PRN Q15MIN PRN IV SEE COMMENTS; Start 03/21/21 at 15:45 Albuterol/ Ipratropium (Duoneb) 3 ml RTQID NEB ; Start 03/21/21 at 16:00; Status Cancel Lactobacillus Rhamnosus (Culturelle) 1 cap BID PO Last administered on 04/01/21at 20:42; Start 03/21/21 at 21:00 Ceftriaxone Sodium (Rocephin) 1 gm Q24H IVP Last administered on 04/02/21at 17:00; Start 03/21/21 at 17:00 Diltiazem HCl (Cardizem 24hr Cd) 300 mg DAILY PO Last administered on 04/01/21at 08:35; Start 03/22/21 at 09:00 Metformin HCl (Glucophage) 1,000 mg BIDWMEALS PO Last administered on 04/01/21at 08:33; Start 03/21/21 at 17:00 Methylprednisolone Sodium Succinate (SOLU-Medrol 125MG VIAL) 60 mg Q8HRS IV Last administered on 03/25/21at 06:03; Start 03/21/21 at 22:00; Stop 03/25/21 at 10:10; Status DC Azithromycin 250 mg/Sodium Chloride 250 ml @ 250 mls/hr Q24H IV ; Start 03/21/21 at 17:00; Status Cancel Azithromycin 500 mg/Sodium Chloride 250 ml @ 250 mls/hr Q24H IV Last administered on 03/21/21at 21:03; Start 03/21/21 at 17:00; Stop 03/22/21 at 17:12; Status DC Multivitamins (Thera M Plus) 1 tab DAILY PO Last administered on 04/01/21at 08:32; Start 03/22/21 at 09:00; Stop 04/02/21 at 11:08; Status DC Aspirin (Aspirin Chewable) 81 mg DAILYWBKFT PO Last administered on 04/01/21at 08:33; Start 03/22/21 at 08:00 Guaifenesin/ Codeine Phosphate (Robitussin Ac) 5 ml PRN Q6HRS PRN PO COUGH; Start 03/21/21 at 16:30; Stop 04/01/21 at 08:25; Status DC Enoxaparin Sodium (Lovenox 40mg Syringe) 40 mg Q24H SQ Last administered on 03/24/21at 16:22; Start 03/21/21 at 17:00; Stop 03/25/21 at 15:14; Status DC Albuterol/ Ipratropium (Combivent Respimat 20-100 Mcg) 1 puff RTQID INH Last administered on 04/02/21at 08:00; Start 03/21/21 at 20:00 Sterile Water (WATER for RESP) 2,000 ml CONT PRN INH VIA VAPOTHERM DEVICE; Start 03/22/21 at 09:30; Stop 03/24/21 at 15:59; Status DC Insulin Glargine (Lantus Syringe) 10 unit QHS SQ Last administered on 03/24/21at 21:20; Start 03/22/21 at 21:00; Stop 03/25/21 at 11:19; Status DC Insulin Human Lispro (HumaLOG) 7 units TIDAC SQ Last administered on 03/31/21at 13:03; Start 03/22/21 at 16:30; Stop 04/02/21 at 07:47; Status DC Azithromycin 500 mg/Sodium Chloride 250 ml @ 250 mls/hr Q24H IV Last administered on 03/31/21at 20:51; Start 03/22/21 at 21:00; Stop 04/01/21 at 09:31; Status DC Sterile Water (WATER for RESP) 1,000 ml CONT PRN INH VIA VAPOTHERM DEVICE Last administered on 03/29/21at 12:29; Start 03/24/21 at 16:00; Stop 03/29/21 at 12:31; Status DC Methylprednisolone Sodium Succinate (SOLU-Medrol 125MG VIAL) 60 mg BID IV Last administered on 04/02/21at 21:16; Start 03/25/21 at 21:00 Insulin Glargine (Lantus Syringe) 15 unit QHS SQ Last administered on 03/29/21at 22:58; Start 03/25/21 at 21:00; Stop 03/30/21 at 17:01; Status DC Furosemide (Lasix) 40 mg 1X ONCE IVP Last administered on 03/25/21at 12:15; Start 03/25/21 at 12:00; Stop 03/25/21 at 12:01; Status DC Calcium Gluconate (Calcium Gluconate) 1,000 mg 1X ONCE IVP ; Start 03/25/21 at 11:45; Stop 03/25/21 at 11:38; Status DC Dextrose (Dextrose 50%-Water Syringe) 25 gm 1X ONCE IV Last administered on 03/25/21at 13:23; Start 03/25/21 at 11:45; Stop 03/25/21 at 11:46; Status DC Insulin Human Regular (HumuLIN R VIAL) 10 unit 1X ONCE IV Last administered on 03/25/21at 13:25; Start 03/25/21 at 11:45; Stop 03/25/21 at 11:46; Status DC Sodium Polystyrene Sulfonate (Kayexalate) 30 gm 1X ONCE PO Last administered on 03/25/21at 13:24; Start 03/25/21 at 11:45; Stop 03/25/21 at 11:46; Status DC Calcium Gluconate (Calcium Gluconate) 1,000 mg 1X ONCE IVP Last administered on 03/25/21at 13:26; Start 03/25/21 at 11:45; Stop 03/25/21 at 11:46; Status DC Enoxaparin Sodium (Lovenox 60mg Syringe) 60 mg Q12H SQ Last administered on 03/28/21at 17:33; Start 03/25/21 at 17:00; Stop 03/28/21 at 21:22; Status DC Enoxaparin Sodium (Lovenox 60mg Syringe) 60 mg Q12HR SQ Last administered on 04/01/21at 20:42; Start 03/29/21 at 09:00; Stop 04/02/21 at 11:13; Status DC Sterile Water (WATER for RESP) 2,000 ml CONT PRN INH VIA VAPOTHERM DEVICE Last administered on 04/02/21at 05:00; Start 03/29/21 at 12:45 Insulin Glargine (Lantus Syringe) 20 unit QHS SQ Last administered on 04/02/21at 21:17; Start 03/30/21 at 21:00 Furosemide (Lasix) 40 mg DAILY IVP Last administered on 04/02/21at 15:27; Start 03/31/21 at 09:00 Dexmedetomidine HCl 400 mcg/ Sodium Chloride 100 ml @ 9.3 mls/hr CONT PRN IV PER PROTOCOL Last administered on 04/02/21at 20:05; Start 03/31/21 at 10:45 Sodium Chloride 500 ml @ 500 mls/hr 1X PRN PRN IV SEE COMMENTS; Start 03/31/21 at 10:45 Atropine Sulfate (ATROPINE 0.5mg SYRINGE) 0.5 mg PRN Q5MIN PRN IV SEE COMMENTS; Start 03/31/21 at 10:45 Norepinephrine Bitartrate 8 mg/ Dextrose 258 ml @ 36.107 mls/ hr CONT PRN IV PER PROTOCOL Last administered on 04/02/21at 12:07; Start 03/31/21 at 17:15; Stop 04/02/21 at 13:47; Status DC Guaifenesin (Robitussin Dm) 10 ml PRN Q6HRS PRN PO COUGH; Start 04/01/21 at 08:30 Info (Tpn Per Pharmacy) 1 each PRN DAILY PRN MC SEE COMMENTS Last administered on 04/02/21at 11:04; Start 04/01/21 at 09:00 Sodium Bicarbonate (Sodium Bicarb Adult 8.4% Syr) 50 meq 1X ONCE IV Last admi nistered on 04/01/21at 09:55; Start 04/01/21 at 09:30; Stop 04/01/21 at 09:32; Status DC Dextrose (Dextrose 50%-Water Syringe) 25 gm 1X ONCE IV Last administered on 04/01/21at 09:55; Start 04/01/21 at 09:30; Stop 04/01/21 at 09:32; Status DC Insulin Human Regular (HumuLIN R VIAL) 10 unit 1X ONCE IV Last administered on 04/01/21at 09:56; Start 04/01/21 at 09:30; Stop 04/01/21 at 09:37; Status DC Sodium Polystyrene Sulfonate (Kayexalate) 30 gm 1X ONCE PO Last administered on 04/01/21at 09:56; Start 04/01/21 at 09:30; Stop 04/01/21 at 09:32; Status DC Lidocaine HCl (Buffered Lidocaine 1%) 3 ml STK-MED ONCE .ROUTE ; Start 04/01/21 at 10:21; Stop 04/01/21 at 10:22; Status DC Heparin Sodium (Porcine) (Heparin Sodium) 10,000 unit STK-MED ONCE .ROUTE ; Start 04/01/21 at 10:22; Stop 04/01/21 at 10:22; Status DC Lidocaine HCl (Buffered Lidocaine 1%) 3 ml 1X ONCE INJ Last administered on 04/01/21at 11:49; Start 04/01/21 at 11:45; Stop 04/01/21 at 11:50; Status DC Heparin Sodium (Porcine) (Heparin Sodium) 2,500 unit 1X ONCE INT CAT Last administered on 04/01/21at 11:50; Start 04/01/21 at 11:45; Stop 04/01/21 at 11:50; Status DC Sodium Chloride 90 meq/ Multivitamins 10 ml/Zinc/Copper/ Manganese/ Selenium 1 ml/ Total Parenteral Nutrition/Amino Acids/Dextrose/ Fat Emulsion Intravenous 1,320 ml @ 55 mls/hr TPN CONT IV Last administered on 04/01/21at 22:04; Start 04/01/21 at 22:00; Stop 04/02/21 at 21:59; Status DC Info (PHARMACY MONITORING -- do not chart) 1 each PRN DAILY PRN MC SEE COMMENTS; Start 04/01/21 at 16:45; Status UNV Info (PHARMACY MONITORING -- do not chart) 1 each PRN DAILY PRN MC SEE COMMENTS; Start 04/01/21 at 16:45; Stop 04/02/21 at 10:41; Status DC Insulin Human Lispro (HumaLOG) 0-9 UNITS Q6HRS SQ Last administered on 04/02/21at 17:33; Start 04/02/21 at 12:00 Insulin Human Lispro (HumaLOG) 7 units Q6HRS SQ Last administered on 04/02/21at 17:33; Start 04/02/21 at 12:00 Sodium Chloride 1,000 ml @ 1,000 mls/hr Q1H PRN IV hypotension; Start 04/02/21 at 08:30; Stop 04/02/21 at 14:29; Status DC Albumin Human 200 ml @ 200 mls/hr 1X PRN PRN IV Hypotension Last administered on 04/02/21at 10:20; Start 04/02/21 at 08:30; Stop 04/02/21 at 14:29; Status DC Sodium Chloride 1,000 ml @ 400 mls/hr Q2H30M PRN IV PATENCY; Start 04/02/21 at 08:30; Stop 04/02/21 at 20:29; Status DC Info (PHARMACY MONITORING -- do not chart) 1 each PRN DAILY PRN MC SEE COMMENTS; Start 04/02/21 at 10:00; Status UNV Info (PHARMACY MONITORING -- do not chart) 1 each PRN DAILY PRN MC SEE COMMENTS; Start 04/02/21 at 10:00 Sodium Chloride 110 meq/Calcium Gluconate 5 meq/ Multivitamins 10 ml/Zinc/Copper/ Manganese/ Selenium 1 ml/ Total Parenteral Nutrition/Amino Acids/Dextrose 1,200 ml @ 50 mls/hr TPN CONT IV Last administered on 04/02/21at 21:43; Start 04/02/21 at 22:00; Stop 04/03/21 at 21:59 Heparin Sodium (Porcine) (Heparin Sodium) 5,000 unit Q8HRS SQ ; Start 04/03/21 at 06:00 Norepinephrine Bitartrate 32 mg/ Dextrose 250 ml @ 8.377 mls/ hr CONT PRN IV SEE I/O RECORD Last administered on 04/02/21at 21:32; Start 04/02/21 at 14:00 Vasopressin 20 unit/Dextrose 101 ml @ 12 mls/hr CONT PRN IV SEE I/O RECORD Last administered on 04/02/21at 20:17; Start 04/02/21 at 20:30 Dopamine HCl/ Dextrose 250 ml @ 33.509 mls/ hr CONT PRN IV SEE I/O RECORD; Start 04/02/21 at 22:45 Octreotide Acetate 500 mcg/ Sodium Chloride 101 ml @ 5.05 mls/hr CONT PRN IV SEE I/O RECORD Last administered on 04/02/21at 23:13; Start 04/02/21 at 23:00 Midazolam HCl (Versed) 2 mg STK-MED ONCE .ROUTE ; Start 04/02/21 at 23:31; Stop 04/02/21 at 23:32; Status DC Rocuronium [place] (Zemuron) 50 mg STK-MED ONCE .ROUTE ; Start 04/02/21 at 23:32; Stop 04/02/21 at 23:32; Status DC Midazolam HCl (Versed) 5 mg STK-MED ONCE .ROUTE ; Start 04/02/21 at 23:33; Stop 04/02/21 at 23:34; Status DC Vitals/I & O Vital Sign - Last 24 Hours 04/02/21 04/02/21 04/02/21 04/02/21 07:47 07:51 08:17 09:19 Temp 96.7 96.7 Pulse 100 59 Resp 11 18 B/P (MAP) 107/80 149/61 Pulse Ox 94 92 93 O2 Delivery Vapotherm Vapotherm Vapotherm Vapotherm O2 Flow Rate 40.0 40.0 40.0 40.0 04/02/21 04/02/21 04/02/21 04/02/21 10:08 11:09 12:00 12:14 Temp 97.0 97.0 Pulse 122 113 132 Resp 21 11 29 B/P (MAP) 116/87 87/65 120/82 Pulse Ox 91 90 87 87 O2 Delivery Vapotherm Vapotherm vapotherm & bipap BiPAP/CPAP O2 Flow Rate 40.0 40.0 40.0 04/02/21 04/02/21 04/02/21 04/02/21 12:25 13:00 14:06 15:01 Pulse 113 135 118 Resp 11 19 19 B/P (MAP) 118/80 131/80 113/74 Pulse Ox 94 92 93 O2 Delivery Vapotherm Vapotherm Vapotherm Vapotherm O2 Flow Rate 40.0 40.0 40.0 40.0 04/02/21 04/02/21 04/02/21 04/02/21 15:51 16:00 16:00 17:12 Pulse 110 112 Resp 22 22 B/P (MAP) 101/63 92/64 Pulse Ox 90 92 92 O2 Delivery BiPAP/CPAP Vapotherm Vapotherm Vapotherm O2 Flow Rate 40.0 40.0 40.0 04/02/21 04/02/21 04/02/21 04/02/21 18:10 18:35 18:42 18:45 Pulse 93 Resp 22 B/P (MAP) 82/64 79/59 70/55 80/59 Pulse Ox 92 O2 Delivery Vapotherm O2 Flow Rate 40.0 04/02/21 04/02/21 04/02/21 04/02/21 19:00 20:00 20:00 20:00 Temp 98.8 98.8 Pulse 93 108 Resp 25 22 B/P (MAP) 88/66 70/56 Pulse Ox 92 88 O2 Delivery Vapotherm Vapotherm Vapotherm O2 Flow Rate 40.0 40.0 40.0 40.0 12/704/02/21 04/02/21 04/02/21 20:20 20:23 20:30 21:00 Pulse 108 110 103 Resp 24 23 25 B/P (MAP) 66/50 76/56 79/61 Pulse Ox 90 90 91 92 O2 Delivery Vapotherm BiPAP/CPAP Vapotherm Vapotherm O2 Flow Rate 40.0 40.0 40.0 04/02/21 22:40 O2 Delivery Bag Valve Mask O2 Flow Rate 15.0 Intake and Output 04/02/21 04/02/21 04/03/21 15:00 23:00 07:00 Intake Total 675 ml 1179 ml Output Total 110 ml 20 ml Balance 565 ml 1159 ml Assessment Bloody NG return, cause unknown. Justicifation of Admission Dx: Justifications for Admission: Justification of Admission Dx: TWAN Boyd MD Apr 03, 2021 00:36
--- NOTE | 2021-04-03 01:35 | PHYS DOC ---
CODE REPORT CODE REPORT I was called for a CODE BLUE overhead to the ICU. Patient is a 60-year-old male hospitalized with Covid pneumonia, ARDS, evidence of new hepatic failure, renal failure on hemodialysis, hypotension on high dose norepinephrine and vasopressin (max dose per hospital protocol). Patient was on 100% BiPAP when he began vomiting large amounts of blood, aspirated, and lost pulses. Upon arrival I intubated the patient with blood very clearly coming from the es ophagus. Good bilateral breath sounds were heard. A large amount of blood was suctioned from the the oropharynx and endotracheal tube (>500cc) Given his alcoholism history there was a concern for variceal bleed and octreotide 50 mcg was bolused, and he was started on octreotide drip. I called for blood immediately, but there was delay in obtaining the blood. 2 units were transfused under pressure. GI was consulted by nursing staff under my direction for massive GI hemorrhage. We were able to regain pulses after high-quality CPR with several rounds of epinephrine, calcium, bicarb. Pos- ROSC ABG (with continued manual bagging) showed pH 6.87, paCO2 > 100, paO2 52. We increased ventilatory rate. Despite blood, vasopressors, octreotide his A-line pressures were 40-50 systolic. I called to discuss these findings with the patient's sister and POA Jennifer Travis and discussed further goals of care. We discussed several different approaches including 1) aggressive measures including full CODE STATUS. 2) DNR CODE STATUS with continued aggressive measures. And finally 3) comfort measures only with discontinuation of aggressive care. His POA opted for a comfort measures only approach. Plans were made to de- escalate care with nursing staff. ERIBERTO CHRISTENSEN MD Apr 03, 2021 01:35
[2021-04-03] MEDS ORDERED: HEPARIN for SUB-Q USE 5,000 UNIT/ML VIAL. SQ SCH (06:00)
--- NOTE | 2021-04-03 08:31 | PDOC3 ---
Discharge Summary Visit Information Date of Admission: Mar 21, 2021 Date of Discharge: Apr 03, 2021 Admitting Diagnosis: Acute hypoxic respiratory failure, COVID 19 Final Diagnosis Acute hypoxic respiratory failure, COVID 19, GI bleed Brief Hospital Course Allergies Allergies Coded Allergies Type Severity Reaction Last Updated Verified No Known Drug Allergies 03/21/21 No Vital Signs Vital Signs Date Time Temp Pulse Resp B/P (MAP) Pulse Ox O2 Delivery O2 Flow Rate FiO2 04/03/21 01:02 80 Ventilator 04/02/21 23:00 108 20 66/52 40.0 04/02/21 20:00 98.8 98.8 Lab Results Laboratory Tests Test 04/01/21 09:00 04/01/21 11:38 04/01/21 12:24 04/01/21 17:54 White Blood Count 21.1 x10^3/uL (4.0-11.0) Red Blood Count 4.55 x10^6/uL (4.30-5.70) Hemoglobin 13.7 g/dL (13.0-17.5) Hematocrit 42.6 % (39.0-53.0) Mean Corpuscular Volume 94 fL (79-100) Mean Corpuscular Hemoglobin 30 pg (25-35) Mean Corpuscular Hemoglobin Concent 32 g/dL (31-37) Red Cell Distribution Width 15.3 % (11.5-14.5) Platelet Count 241 x10^3/uL (140-400) Neutrophils (%) (Auto) 93 % (31-73) Lymphocytes (%) (Auto) 2 % (24-48) Monocytes (%) (Auto) 5 % (0-9) Eosinophils (%) (Auto) 0 % (0-3) Basophils (%) (Auto) 1 % (0-3) Neutrophils # (Auto) 19.7 x10^3/uL (1.8-7.7) Lymphocytes # (Auto) 0.3 x10^3/uL (1.0-4.8) Monocytes # (Auto) 0.9 x10^3/uL (0.0-1.1) Eosinophils # (Auto) 0.0 x10^3/uL (0.0-0.7) Basophils # (Auto) 0.1 x10^3/uL (0.0-0.2) Segmented Neutrophils % 92 % (35-66) Band Neutrophils % 2 % (0-9) Lymphocytes % 4 % (24-48) Monocytes % 2 % (0-10) Nucleated Red Blood Cells 1 Platelet Estimate Adequate (ADEQUATE) Sodium Level 126 mmol/L (136-145) 132 mmol/L (136-145) Potassium Level 6.7 mmol/L (3.5-5.1) 4.2 mmol/L (3.5-5.1) Chloride Level 92 mmol/L (98-107) Carbon Dioxide Level 21 mmol/L (21-32) Anion Gap 13 (6-14) Blood Urea Nitrogen 113 mg/dL (8-26) Creatinine 2.6 mg/dL (0.7-1.3) Estimated GFR (Cockcroft-Gault) 25.1 BUN/Creatinine Ratio 43 (6-20) Glucose Level 205 mg/dL (70-99) Calcium Level 8.7 mg/dL (8.5-10.1) Phosphorus Level 5.7 mg/dL (2.6-4.7) Magnesium Level 2.8 mg/dL (1.8-2.4) Total Bilirubin 1.4 mg/dL (0.2-1.0) Aspartate Amino Transf (AST/SGOT) 60 U/L (15-37) Alanine Aminotransferase (ALT/SGPT) 100 U/L (16-63) Alkaline Phosphatase 117 U/L (46-116) Total Protein 5.4 g/dL (6.4-8.2) Albumin 1.9 g/dL (3.4-5.0) Albumin/Globulin Ratio 0.5 (1.0-1.7) O2 Saturation 85 % (92-99) Arterial Blood pH 7.41 (7.35-7.45) Arterial Blood pCO2 at Patient Temp 29 mmHg (35-46) Arterial Blood pO2 at Patient Temp 55 mmHg (65-108) Arterial Blood HCO3 18 mmol/L (21-28) Arterial Blood Base Excess -5 mmol/L (-3-3) FiO2 100% vapotherm Glucose (Fingerstick) 198 mg/dL (70-99) Test 04/01/21 17:57 04/01/21 20:15 04/02/21 05:10 04/02/21 08:15 Glucose (Fingerstick) 120 mg/dL (70-99) Hepatitis B Surface Antigen Nonreactive (Nonreactive) Sodium Level 128 mmol/L (136-145) Potassium Level 5.8 mmol/L (3.5-5.1) Chloride Level 93 mmol/L (98-107) Carbon Dioxide Level 21 mmol/L (21-32) Anion Gap 14 (6-14) Blood Urea Nitrogen 94 mg/dL (8-26) Creatinine 2.5 mg/dL (0.7-1.3) Estimated GFR (Cockcroft-Gault) 26.3 BUN/Creatinine Ratio 38 (6-20) Glucose Level 259 mg/dL (70-99) Calcium Level 7.6 mg/dL (8.5-10.1) Phosphorus Level 5.6 mg/dL (2.6-4.7) Magnesium Level 2.5 mg/dL (1.8-2.4) Total Bilirubin 1.7 mg/dL (0.2-1.0) Aspartate Amino Transf (AST/SGOT) 105 U/L (15-37) Alanine Aminotransferase (ALT/SGPT) 126 U/L (16-63) Alkaline Phosphatase 119 U/L (46-116) Total Protein 4.3 g/dL (6.4-8.2) Albumin 1.6 g/dL (3.4-5.0) Albumin/Globulin Ratio 0.6 (1.0-1.7) Triglycerides Level 88 mg/dL (0-150) Hepatitis B Core Total Antibody Nonreactive (Nonreactive) Urine Collection Type Unknown Urine Color Silvia Urine Clarity Cloudy Urine pH 5.0 (<5.0-8.0) Urine Specific [place] 1.020 (1.000-1.030) Urine Protein Negative mg/dL (NEG-TRACE) Urine Glucose (UA) Negative mg/dL (NEG) Urine Ketones (Stick) Negative mg/dL (NEG) Urine Blood Large (NEG) Urine Nitrite Negative (NEG) Urine Bilirubin Negative (NEG) Urine Urobilinogen Dipstick 1.0 mg/dL (0.2 mg/dL) Urine Leukocyte Esterase Trace (NEG) Urine RBC 11-20 /HPF (0-2) Urine WBC 5-10 /HPF (0-4) Urine Squamous Epithelial Cells Mod /LPF Urine Bacteria Few /HPF (0-FEW) Urine Hyaline Casts Many /HPF Urine Mucus Slight /LPF Test 12/7/21 12:10 04/02/21 17:31 04/02/21 23:02 04/02/21 23:05 Glucose (Fingerstick) 284 mg/dL (70-99) 291 mg/dL (70-99) 225 mg/dL (70-99) O2 Saturation 55 % (92-99) Arterial Blood pH 6.87 (7.35-7.45) Arterial Blood pCO2 at Patient Temp 105 mmHg (35-46) Arterial Blood pO2 at Patient Temp 52 mmHg (65-108) Arterial Blood HCO3 19 mmol/L (21-28) Arterial Blood Base Excess -16 mmol/L (-3-3) FiO2 100 (ambu) Laboratory Tests Test 04/02/21 12:10 04/02/21 17:31 04/02/21 23:02 04/02/21 23:05 Glucose (Fingerstick) 284 mg/dL (70-99) 291 mg/dL (70-99) 225 mg/dL (70-99) O2 Saturation 55 % (92-99) Arterial Blood pH 6.87 (7.35-7.45) Arterial Blood pCO2 at Patient Temp 105 mmHg (35-46) Arterial Blood pO2 at Patient Temp 52 mmHg (65-108) Arterial Blood HCO3 19 mmol/L (21-28) Arterial Blood Base Excess -16 mmol/L (-3-3) FiO2 100 (ambu) Brief Hospital Course Mr Carter is a 60-year-old male w/ PMHx obesity, COPD, ETOH use disorder, smoker (stopped smoking 1 month prior to admit) who presented to [facility] with respiratory failure, increasing dyspnea and shortness of breath. Chest x-ray demonstrated bilateral infiltrates. He tested positive for COVID pneumonia on 02/28/2021. He has not been vaccinated. He regrets that decision. Was initially requiring 10 liters of oxygen by high flow nasal cannula to maintain sats around 90%. He has morbid obesity with a weight of 385 pounds. He also has paroxysmal atrial fibrillation requiring Cardizem drip. He was placed on COVID-19 protocol. Transferred. Started him on remdesivir. He is already on broad-spectrum antibiotics. Consult Pulmonary Medicine and ICU admit. 03/22:Patient evaluated examined at bedside. Continue current Covid treatment. Pulmonary following. Antibiotics remdesivir fever oxygen as needed. Continue current plan. Plan of care discussed with bedside RN. 03/23: Late entry for March 23. Patient evaluated examined at bedside. Still on Covid treatment. Pulmonary following. Wean O2 as tolerated. Plan of care discussed with bedside RN. 03/24: Patient evaluated and examined at bedside. Still remains on Vapotherm no success with weaning. Appreciate pulmonary discussing advance care planning with patient. Continue current Covid treatment. Not a tocilizumab candidate. Plan of care discussed with bedside RN. 03/25: Patient evaluated and examined at bedside. Remains on Vapotherm unsuccessful to any weaning. Hyperkalemia a bit worse today will treat. Continue COVID treatments. Patient insistent on remaining a full code plan of care discussed with bedside RN. 03/26: Patient evaluated examined at bedside. Still on Vapotherm but on 30 L/min 90% FiO2. Wean as tolerated. Potassium okay today. Pulmonary following. Continue current plan otherwise. 03/27: Patient evaluated examined at bedside. Still remains on Vapotherm. Given difficulty with weaning and long duration of admission referral sent for LTAC to day per social work. Pulmonary following. 03/28: Patient evaluated examined at bedside. Remains on Vapotherm. LTAC discharge on Thursday looks like 03/29: Patient evaluated examined at bedside. Remains on Vapotherm with success with meeting. Trying Lasix per pulmonary. May be LTAC accepted Thursday. 03/30: Patient evaluated examined at bedside. Still on Vapotherm no success with weaning. Expecting LTAC DC tomorrow 04/01: Seen bedside in ICU. Vapotherm 35 L/min 100% FiO2 with O2 saturations 92%. Afib on telemetry. Confused, but less agitated. 04/02: Started on dialysis for potassium of 6.7 BUN 113. Used. O2 saturations 90% on 40 L/min 100% FiO2 Vapotherm. K5.8. BP low, on high dose norepinephrine and vasopressin Late on 04/02 at 2300 patient was on 100% BiPAP when he began vomiting large amounts of blood, aspirated, and lost pulses. ED physician called for code and upon arrival intubated the patient with blood very clearly coming from the esophagus. There was a concern for variceal bleed and octreotide 50 mcg was bolused, and he was started on octreotide drip. 2 units PRBC were transfused under pressure. Able to regain pulses after high-quality CPR with several rounds of epinephrine, calcium, bicarb. Post-ROSC ABG (with continued manual bagging) showed pH 6.87, paCO2 > 100, paO2 52. Despite blood, vasopressors, octreotide his A-line pressures were 40-50 systolic. ED physician called to discuss these findings with the patient's sister and NIRMALA Travis and ultimately she opted for a comfort measures only approach. Plans were made to de-escalate care with nursing staff. Patient was extubated at 2350 on 04/02/2021 and was noted with no spontaneous respiratory or cardiac activity GI was consulted by nursing staff for massive GI hemorrhage, but patient had bee n made comfort care prior to this and he had at approximately 0030 on 04/03/2021 Problem list: Acute blood loss anemia - massive GI bleed likely variceal in natute Acute hypoxic respiratory failure secondary to COVID-19 pneumonia COVID-19 Acute encephalopathy - no focal neuro deficits, does have ETOH use disorder history, likely withdrawal Afib - prn metoprolol, lovenox. paroxsymal per history Morbid obesity - counseled DM2 - sliding scale COPD? - per chart review Hyperkalemia Acute Renal failure - started dialysis 04/01/2021 Less than 30 minutes spent on day of patient expiration Discharge Information Condition at Discharge: / Disposition/Orders: Justicifation of Admission Dx: Justifications for Admission: Justification of Admission Dx: No LARY PARKER MD Apr 03, 2021 08:31
== END 2021-04-03 00:03 | DRG 177 ==
LOC: 6 SOUTH 14:01 → 1 WEST ICU 03-31 08:00
PROVIDERS: ADMIT Internal Medicine; ATTEND Internal Medicine
PROC: XW033E5 Introduction of Remdesivir Anti-infective into Peripheral Vein, Percutaneous Approach, New Technology Group 5 (ICD-10-PCS; 2021-03-22)
PROC: 5A0935A Assistance with Respiratory Ventilation, Less than 24 Consecutive Hours, High Flow/Velocity Cannula (ICD-10-PCS; 2021-03-22)
PROC: 02HV33Z Insertion of Infusion Device into Superior Vena Cava, Percutaneous Approach (ICD-10-PCS; 2021-04-01)
PROC: B548ZZA Ultrasonography of Superior Vena Cava, Guidance (ICD-10-PCS; 2021-04-01)
PROC: 5A1D70Z Performance of Urinary Filtration, Intermittent, Less than 6 Hours Per Day (ICD-10-PCS; 2021-04-01)
PROC: 30233N1 Transfusion of Nonautologous Red Blood Cells into Peripheral Vein, Percutaneous Approach (ICD-10-PCS; principal; 2021-04-02)
PROC: 5A09357 Assistance with Respiratory Ventilation, Less than 24 Consecutive Hours, Continuous Positive Airway Pressure (ICD-10-PCS; 2021-04-02)
PROC: 5A1D70Z Performance of Urinary Filtration, Intermittent, Less than 6 Hours Per Day (ICD-10-PCS; 2021-04-02)
DX: U07.1 COVID-19 (principal); J96.01 Acute respiratory failure with hypoxia; J12.82 Pneumonia due to coronavirus disease 2019; N17.0 Acute kidney failure with tubular necrosis; D62 Acute posthemorrhagic anemia; E87.1 Hypo-osmolality and hyponatremia; G93.40 Encephalopathy, unspecified; J44.0 Chronic obstructive pulmonary disease with (acute) lower respiratory infection; K92.2 Gastrointestinal hemorrhage, unspecified; Z68.43 Body mass index [BMI] 50.0-59.9, adult; D69.59 Other secondary thrombocytopenia; E11.9 Type 2 diabetes mellitus without complications; E66.01 Morbid (severe) obesity due to excess calories; E78.5 Hyperlipidemia, unspecified; E87.5 Hyperkalemia; I10 Essential (primary) hypertension; I48.0 Paroxysmal atrial fibrillation; I89.0 Lymphedema, not elsewhere classified; Z83.3 Family history of diabetes mellitus; Z87.891 Personal history of nicotine dependence; Z79.899 Other long term (current) drug therapy
CPT/HCPCS: 31720; 36415; 36430; 36556; 36569; 36600; 71045; 76937; 80048; 80053; 81001; 82805; 82962; 83735; 84100; 84132; 84295; 84478; 85007; 85025; 86140; 86317; 86704; 86850; 86900; 86901; 86920; 87340; 87426; 94002; 94640; 94660; 94760; C1892; J0171; J0456; J0610; J0696; J1644; J1650; J1815; J1940; J2354; J2930; J3490; J7050; J7060; P9016; P9046; 94664; G0378; J7030